=== PATIENT | female | born 1945 | race Caucasian/White ===

== ENCOUNTER 2020-02-12 07:32 | Outpatient (CLI) | payer MEDICARE, SELFPAY ==
--- NOTE | ~2020-02-12 | DEXA_ITS ---
Bone Density Report Name: Mahsa Cannon Age: 74 Sex: Female Ethnicity: White Date of : 1945 Indication: postmenopausal; Referring Provider: PHYSICIAN NOT ON STAFF Study: Bone densitometry was performed. Exam Date: February 12, 2020 Accession number: [id number] Bone Density: Region BMD T-score Z-score Classification AP Spine (L1-L4) 1.216 1.5 3.9 Normal Femoral Neck (Left) 0.956 1.0 3.0 Normal Total Hip (Left) 1.214 2.2 4.0 Normal Total Hip Bilateral Avg 1.209 2.1 4.0 Normal Femoral Neck (Right) 0.997 1.3 3.4 Normal Total Hip (Right) 1.202 2.1 3.9 Normal World Health Organization criteria for BMD impression classify patients as: Normal (T-score at or above -1.0), Osteopenia (T-score between -1.0 and -2.5), or Osteoporosis (T-score at or below -2.5). 10-year Fracture Risk: FRAX not reported because: All T-scores for Spine Total, Hip Total, Femoral Neck at or above -1.0 Previous Exams: Region Exam Age BMD T-score BMD Change BMD Change Date g/cm2 vs Baseline vs Previous AP Spine(L1-L4) 02/12/2020 74 1.216 1.5 -0.093(-7.1%)# -0.093(-7.1%)# 08/01/2008 63 1.309 2.4 Total Hip(Left) 02/12/2020 74 1.214 2.2 -0.100(-7.6%)# -0.100(-7.6%)# 08/01/2008 63 1.314 3.0 Total Hip(Right) 02/12/2020 74 1.202 2.1 -0.080(-6.3%)# -0.080(-6.3%)# 08/01/2008 63 1.282 2.8 *Denotes significance at 95% confidence level, LSC for AP Spine = 0.022 g/cm2, LSC for Total Hip = 0.027 g/cm2 Clinical Information Provided by Patient: Patient maximum height was 65 Onset of menses at age 14 Number of children 2 Impression: The patient has normal bone mass. No significant bone loss was observed. Discussion: LOW RISK OF FRACTURE; BONE DENSITY IS WELL ABOVE THE MINIMUM DESIRABLE LEVEL AND ABOVE AVERAGE FOR AGE AND SEX AT ALL SKELETAL SITES TESTED. This person's bone density is above expected limits for age and sex. This is rarely clinically significant, but should be pursued if there are significant musculoskeletal complaints. The patient should follow a healthful lifestyle (good nutrition with adequate calcium and vitamin D, and appropriate weight-bearing exercise). Follow-Up: Consider repeating this study in 5 years or sooner if there is some new clinical indication. Reported by: [facility] on 02/12/2020 8:05:00 AM. Reviewed, dictated and finalized at location ACharlotte CALLEJAS
== END 2020-02-12 07:33 | disposition home or self-care (01) ==
PROVIDERS: PCP Family Medicine
DX: Z78.0 Asymptomatic menopausal state (principal)
CPT/HCPCS: 77080

== ENCOUNTER 2021-03-11 01:22 | Emergency (ER) | payer MEDICARE, SELFPAY ==
[2021-03-11] VITALS (11 sets, daily range): BP systolic 120–164; BP diastolic 63–86; PULSE 60–91; RESP 14–19; TEMP 36.6; O2SAT 95–100
--- NOTE | ~2021-03-11 | CT_ITS ---
EXAMINATION: CT abdomen pelvis w con DATE: 03/11/2021 02:48 INDICATION: Abdominal pain. TECHNIQUE: Computed tomography (CT) of the abdomen and pelvis was performed with 100 mL Omnipaque 350 intravenous contrast. Automated exposure control and iterative reconstruction technique were employe d. The dose-length product was 824.03 mGy-cm. COMPARISON: None. FINDINGS: The visualized portions of the lung bases demonstrate mild dependent atelectasis. A calcifi ed right lung nodule and calcified right hilar lymph node a consistent with old granulomatous disease . No pleural effusion. The heart size is normal. There are coronary artery calcifications. No pericar dial effusion. The liver is normal. There are changes of cholecystectomy. Calcifications in the splee n are consistent with old granulomatous disease. The pancreas and adrenal glands are normal. There ar e 2 mm and 3 mm stones in right kidney. There is mild right hydronephrosis and hydroureter. There is a 3 mm stone at right ureterovesicular junction. There is a 12 mm cyst in left kidney. There are 3 st ones in left kidney measuring up to 4 mm. The endometrial complex is thickened to 13 mm. There is div erticulosis of the colon without evidence of diverticulitis. There are no dilated loops of bowel. The appendix is normal. There are no pathologically enlarged lymph nodes. There is no free intraperitone al fluid. There is mild thoracolumbar spondylosis. IMPRESSION: 1. 3 mm stone at right ureterovesicular junction with mild right hydronephrosis and hydroureter. 2. Small bilateral nonobstructing kidney stones. 3. Thickened endometrial complex. The differential diagnosis includes endometrial hyperplasia, polyp, and carcinoma. Biopsy is recommended. Reviewed, dictated and finalized at location A. IMPRESSION: 1. 3 mm stone at right ureterovesicular junction with mild right hydronephrosis and hydroureter. 2. Small bilateral nonobstructing kidney stones. 3. Thickened endometrial complex. The differential diagnosis includes endometri al hyperplasia, polyp, and carcinoma. Biopsy is recommended.
--- NOTE | 2021-03-11 01:52 | ECG_ITS ---
Measurements Intervals [place] Rate: 60 P: 29 NV: 169 QRS: 42 QRSD: 91 T: 65 QT: 407 QTc: 407 Interpretive Statements SINUS RHYTHM ATRIAL PREMATURE COMPLEX BORDERLINE ECG Electronically Signed On 03-11-2021 6:57:36 CDT by Elías Tai D.O.
[2021-03-11] MEDS: SODIUM CHLORIDE 0.9% IV 1,000 ML 999 ML IV CONT (02:05)
[2021-03-11] MEDS: ONDANSETRON INJ 4 MG/2 ML VIAL IV PUSH (02:06)
[2021-03-11] MEDS: MORPHINE SULFATE (*CRX) 4 MG/ML INJ IV PUSH (02:06)
[2021-03-11 02:35] LABS: Estimated CRCL calculation 50 ml/min; Estimated Glomerular Filt Rate > 60
[2021-03-11 02:37] LABS: Basophils Absolute Auto 0.1 K/mm3 (0.0-0.1); Basophils Percent Auto 0.9 % (0.2-1.2); Eosinophils Percent Auto 0.2 % (0-4.4); Hematocrit 45.9 % (37.0-47.0); Hemoglobin 14.8 g/dL (12.0-15.0); Immature Granulocyte Absolute 0.03 K/mm3 (0.00-0.031); Immature Granulocyte Percent A 0.3 % (0-0.5); Lymphocytes Absolute Auto 1.58 K/mm3 (0.9-3.2); Lymphocytes Percent Auto 14.6 % (18.3-44.2); Mean Corpuscular HGB Conc 32.2 g/dl (32-36); Mean Corpuscular Volume 99.1 fl (80-100); Monocytes Absolute Auto 0.7 K/mm3 (0.1-0.6); Monocytes Percent Auto 6.1 % (2.6-8.5); Neutrophils Absolute Auto 8.4 K/mm3 (1.3-6.7); Neutrophils Percent Auto 77.9 % (45.5-73.1); Platelet Count Result 185 k/mm3 (150-375); Red Blood Count 4.63 M/mm3 (4.2-5.4); Red Cell Distribution Width 12.9 % (11.5-14.5); White Blood Count 10.8 K/mm3 (4.5-10.0)
[2021-03-11 02:48] LABS: INR 0.9; Prothrombin Time 13.2 Seconds (11.1-14.7)
[2021-03-11 02:49] LABS: Lactic Acid Reflex 1.6 mmol/L (0.7-2.1); Partial Thromboplastin Time 24.1 SECONDS (22.3-36.8); Potassium 4.1 mmol/L (3.4-5.0)
[2021-03-11 03:02] LABS: Troponin I < 0.012 ng/mL (0.000-0.034)
[2021-03-11 03:08] LABS: Alanine Aminotransferase 19 U/L (4-35); Alkaline Phosphatase 70 U/L (38-126); Anion Gap 7 mmol/L (8-16); Aspartate Amino Transferase 30 U/L (14-36); Blood Urea Nitrogen 20 mg/dL (7-17); Calcium 9.1 mg/dL (8.4-10.2); Carbon Dioxide 21 mmol/L (22-30); Chloride 111 mmol/L (98-107); Estimated CRCL calculation 50 ml/min; Estimated Glomerular Filt Rate > 60; Glucose 132 mg/dL (65-105); Sodium 139 mmol/L (137-145)
--- NOTE | 2021-03-11 03:21 | ED.GENADULT ---
HPI - General Adult General Chief complaint: Abdominal Pain Stated complaint: abd pain Time Seen by Provider: 03/11/21 01:27 History of Present Illness HPI narrative: Patient is a 75-year-old female who presents the emergency department with chief complaint of abdominal pain. Patient reports the pain began around 9 PM states is generalized more on the right side of her abdomen. The patient reports that she has had a bowel movement today but it was somewhat smaller than normal. Patient denies nausea vomiting. The patient states that she is not had any recent surgeries to her abdomen the patient denies fever or chills reports that she had an or abnormal meal tonight denies prior history of pancreatitis. Related Data Allergies Allergy/AdvReac Type Severity Reaction Status Date / Time Penicillins Allergy Unknown Hives Verified 03/11/21 01:41 Review of Systems Review of Systems: Narrative: A 10 system review of systems was completed on the patient and is negative except for what is stated in the HPI. Nursing and ancillary documentation was reviewed. [facility] Social History Social History Smoking status: Never smoker Second hand tobacco smoke exposure: No Alcohol intake: never Gender identity (if verbalized by the patient): Female Exam Narrative: Exam Narrative: GENERAL: Well-appearing, well-nourished, and in no acute distress. HEAD: Normocephalic, atraumatic. EYES: PERRLA and EOMI. ENT: Nares clear, no rhinorrhea or epistaxis. Mucous membranes moist. NECK: Supple. CHEST: Clear to auscultation. No respiratory distress. HEART: Regular rate and rhythm. No murmur heard. Normal peripheral pulses. ABDOMEN: Soft, diffuse mild tenderness, nondistended, normal active bowel sounds. EXTREMITIES: Normal range of motion. No edema. SKIN: Warm, dry, no rash. NEURO: No focal deficits. Alert and oriented x3. PSYCH: Normal mood and affect. Course Course Emergency Course: CT scan shows evidence of a 5 mm stone at the right UVJ Vital Signs Vital signs: Vital Signs Temperature 36.6 C 03/11/21 01:38 Pulse Rate 65 03/11/21 01:38 Respiratory Rate 19 03/11/21 01:38 Blood Pressure 164/75 H 03/11/21 01:38 Pulse Oximetry 96 03/11/21 01:38 Temperature 36.6 C 03/11/21 01:38 Pulse Rate 87 03/11/21 03:45 Respiratory Rate 16 03/11/21 03:45 Blood Pressure 141/66 H 03/11/21 03:01 Pulse Oximetry 96 03/11/21 03:45 Medical Decision Making Vital Signs Vital Signs: Vital Signs Temperature 36.6 C 03/11/21 01:38 Pulse Rate 65 03/11/21 01:38 Respiratory Rate 19 03/11/21 01:38 Blood Pressure 164/75 H 03/11/21 01:38 Pulse Oximetry 96 03/11/21 01:38 Temperature 36.6 C 03/11/21 01:38 Pulse Rate 87 03/11/21 03:45 Respiratory Rate 16 03/11/21 03:45 Blood Pressure 141/66 H 03/11/21 03:01 Pulse Oximetry 96 03/11/21 03:45 Lab Data Result diagrams: 03/11/21 02:32 03/11/21 02:33 Labs: Lab Results 03/11/21 03/11/21 03/11/21 Range/Units 02:32 02:32 02:32 WBC 10.8 H (4.5-10.0) K/mm3 RBC 4.63 (4.2-5.4) M/mm3 Hgb 14.8 (12.0-15.0) g/dL Hct 45.9 (37.0-47.0) % MCV 99.1 (80-100) fl MCH 32.0 (26-34) pg MCHC 32.2 (32-36) g/dl RDW 12.9 (11.5-14.5) % Plt Count 185 (150-375) k/mm3 MPV 10.0 (7.4-10.4) fl Immature Gran % (Auto) 0.3 (0-0.5) % Neut % (Auto) 77.9 H (45.5-73.1) % Lymph % (Auto) 14.6 L (18.3-44.2) % Pratt % (Auto) 6.1 (2.6-8.5) % Eos % (Auto) 0.2 (0-4.4) % Baso % (Auto) 0.9 (0.2-1.2) % Lymph # (Auto) 1.58 (0.9-3.2) K/mm3 Pratt # (Auto) 0.7 H (0.1-0.6) K/mm3 Eos # (Auto) 0.0 (0-0.3) K/mm3 Baso # (Auto) 0.1 (0.0-0.1) K/mm3 Abs Immat Gran (auto) 0.03 (0.00-0.031) K/mm3 Absolute Neuts (auto) 8.4 H (1.3-6.7) K/mm3 Absolute Nucleated RBC 0.0 (0.0-0.012) K/mm3 Nucleated RB
== END 2021-03-11 04:38 | disposition home or self-care (01) ==
PROVIDERS: Emergency Provider Emergency Medicine; PCP Family Medicine
DX: N13.2 Hydronephrosis with renal and ureteral calculous obstruction (principal); R93.89 Abnormal findings on diagnostic imaging of other specified body structures
CPT/HCPCS: 74177; 80053; 83605; 84484; 85025; 85610; 85730; 93005; 96361; 96374; 96375; 99284; J2270; J2405; J7030; Q9967

== ENCOUNTER → 2021-03-17 13:39 | Outpatient (CLI) | payer MEDICARE, SELFPAY ==
--- NOTE | ~2021-03-17 | XR_ITS ---
EXAMINATION: XR abdomen/kub 1V DATE: 03/17/2021 14:57 INDICATION: Right ureteral stone. TECHNIQUE: A supine view of the abdomen on 2 radiographs was obtained. COMPARISON: CT abdomen and pelvis 03/11/2021 FINDINGS: There are no dilated loops of bowel. There are phleboliths in the pelvis. Again seen is a 3 mm stone at right ureterovesicular junction. There are stones in the kidneys measuring up to 4 mm on the left. IMPRESSION: 1. 3 mm stone at right ureterovesicular junction. 2. Small bilateral kidney stones. Reviewed, dictated and finalized at location A.
== END ==
PROVIDERS: PCP Urology; Visit Provider Urology
DX: N20.1 Calculus of ureter (principal); N20.0 Calculus of kidney
CPT/HCPCS: 74018

== ENCOUNTER 2021-03-20 08:19 | Outpatient (CLI) | payer MEDICARE, SELFPAY ==
--- NOTE | ~2021-03-20 | US_ITS ---
EXAMINATION: US pelvic complete w TV DATE: 03/20/2021 11:21 INDICATION: Thickened endometrial complex on CT TECHNIQUE: Multiple transabdominal and endovaginal sonographic images of the pelvis were obtained. COMPARISON: CT, 03/11/2021 FINDINGS: The uterus measures 5.3 x 3.3 x 3.2 cm. The endometrial complex measures up to 13 mm again demonstrates areas of fluid or cystic change. The ovaries are not visualized however no adnexal abnor mality is seen. There is no free fluid in the pelvis. IMPRESSION: 1. Endometrial thickening which may be due to hyperplasia, polyp, or malignancy. Endometrial sampling is recommended. Reviewed, dictated and finalized at location A. IMPRESSION: 1. Endometrial thickening which may be due to hyperplasia, polyp, or malignancy . Endometrial sampling is recommended.
--- NOTE | ~2021-03-20 | MM_ITS ---
EXAMINATION: MM screening brooke BI w grazyna HISTORY: Screening TECHNIQUE: Craniocaudal and mediolateral oblique 3-D tomosynthesis images were obtained and synthetic 2-D images were generated. CAD analysis was submitted and interpreted. COMPARISON: Comparison to multiple prior studies sequentially, with oldest reviewed study dated 11/2012. BREAST PARENCHYMAL COMPOSITION: There are scattered areas of fibroglandular density. FINDINGS: There is a chronic mass anterior to the lower margin of the pectoralis muscle with dystroph ic calcifications, likely fibrosis from previous breast implant removal. There is developing asymmetr y asymmetry in the mid outer aspect of the left breast. IMPRESSION: 1. Developing left breast asymmetry, mid outer aspect of the breast posteriorly. 2. Additional mammographic views and possible breast ultrasound are recommended. BI-RADS Category 0: Incomplete: Needs additional imaging evaluation. Reviewed, dictated and finalized at location A. IMPRESSION: 1. Developing left breast asymmetry, mid outer aspect of the breast posteriorly . 2. Additional mammographic views and possible breast ultrasound are recommended . BI-RADS Category 0: Incomplete: Needs additional imaging evaluation.
== END 2021-03-20 08:20 | disposition home or self-care (01) ==
LOC: ANHIMG 08:25
PROVIDERS: Visit Provider Obstetrics & Gynecology
DX: Z12.31 Encounter for screening mammogram for malignant neoplasm of breast (principal); R93.89 Abnormal findings on diagnostic imaging of other specified body structures; R92.8 Other abnormal and inconclusive findings on diagnostic imaging of breast
CPT/HCPCS: 76830; 76856; 77063; 77067

== ENCOUNTER → 2021-03-24 02:35 | Outpatient (CLI) | payer MEDICARE, SELFPAY ==
[2021-03-24 19:19] LABS: SARS-CoV-2 RNA PCR Negative
== END ==
PROVIDERS: Visit Provider Urology
DX: Z01.812 Encounter for preprocedural laboratory examination (principal); Z20.822 Contact with and (suspected) exposure to COVID-19
CPT/HCPCS: C9803; U0003; U0005

== ENCOUNTER 2021-03-27 00:25 | Day surgery (SDC) | payer MEDICARE, SELFPAY ==
[2021-03-19 14:56] VITALS: BMI 29.9
[2021-03-27] VITALS (8 sets, daily range): BP systolic 93–149; BP diastolic 47–78; PULSE 66–79; RESP 8–16; TEMP 36.3–36.7; O2SAT 96–100
--- NOTE | ~2021-03-27 | XR_ITS ---
EXAMINATION: XR fluoroscopy no charge DATE: 03/27/2021 10:13 INDICATION: Right ureteral stone. TECHNIQUE: 3 intraoperative fluoroscopic views of the abdomen and pelvis were obtained. I was not pre sent. Fluoroscopy exposure time was 12 seconds. COMPARISON: CT abdomen and pelvis 03/11/2021 FINDINGS: There are no dilated loops of bowel. There is no visible urolithiasis. IMPRESSION: 1. No visible urolithiasis. Reviewed, dictated and finalized at location B. IMPRESSION: 1. No visible urolithiasis.
--- NOTE | 2021-03-27 07:26 | WPDHPUPDATE1 ---
History and Physical Update Update Date/Time: 03/27/21 07:26 History and Physical has been reviewed, including an updated exam of the patient. There are NO changes in the patient's condition. Risks, benefits, and alternatives have been discussed and questions answered. Patient agrees to proceed with procedure.
[2021-03-27] MEDS: LACTATED RINGERS 1,000 ML 30 ML IV CONT (08:17)
--- NOTE | 2021-03-27 09:04 | WPDANESEPPF ---
Anes - Initial Pre Proc Eval Procedure: Operation Date: 03/27/21 09:30 Proposed Procedures p Cystoscopy, Right Ureteroscopy, Right Stone Extraction, Possible Stent Placement - Eliel Riley MD Date/Time: 03/27/21 09:04 Surgeon: Eliel Riley MD Pre Op Diagnosis: right ureteral stone Patient Data Age: 75 Gender: F Height: 5 ft 5 in Weight: 87.8 kg Last Vital Signs Temp 97.3 F L 03/27/21 07:40 Pulse 68 03/27/21 07:40 Resp 16 03/27/21 07:40 BP 131/78 03/27/21 07:40 Pulse Ox 98 03/27/21 07:40 Allergies Allergy/AdvReac Type Severity Reaction Status Date / Time Penicillins Allergy Mild Rash Verified 03/27/21 08:38 Home Medications Medication Instructions Recorded Confirmed Type brimonidine-timolol [Combigan] 1 drp OPHTHALMIC (EYE) BID 03/19/21 03/27/21 History clonidine HCl 0.1 mg PO TID 03/19/21 03/19/21 History dorzolamide 1 drp OPHTHALMIC (EYE) BID 03/19/21 03/27/21 History famotidine 40 mg PO DAILY 03/19/21 03/19/21 History levothyroxine 100 mcg PO DAILY 03/19/21 03/27/21 History metoprolol succinate 25 mg PO QNOON 03/19/21 03/27/21 History omeprazole 40 mg PO DAILY 03/19/21 03/19/21 History pravastatin 40 mg PO HS 03/19/21 03/19/21 History Patient hx anesthesia problems: none Family hx anesthesia problems: none PMFSH Past Medical History Medical History GERD (gastroesophageal reflux disease) Hypertension Thyroid disorder Surgical History Surgical History H/O breast surgery S/P cholecystectomy S/P ERCP Family History Family History Father Thyroid cancer Hypertension Cerebrovascular accident Other Hypertension Thyroid disorder Sibling Hypertension Heart disease Son Hypertension Social History Social History Smoking status: Never smoker Second hand tobacco smoke exposure: No Alcohol intake: never Living arrangements: with family Gender identity (if verbalized by the patient): Female Spiritual care concerns: No Anes - Eval Final PreProcedure Day of Procedure 03/27/21 09:04 Patient weight: overweight Heart: regular rate and rhythm Lungs: clear to auscultation Airway: Mallampati scale class II Neurological: alert and oriented Last oral intake: >/= 8 hours ASA classification: III Emergent: no Anesthetic plan: proceed Anesthesia type and monitoring: general LMA and standard monitoring Informed Consent: The patient's anesthetic plan and its attendant risks and benefits were discussed with the patient/family/POA. Questions were solicited and answers provided to the satisfaction of the patient/family/POA.
[2021-03-27] MEDS: ceFAZolin 2 GM/D5W 50 ML 2 GM/50 ML BAG IVPB (09:37)
--- NOTE | 2021-03-27 10:11 | P.OP_ITS ---
Procedure Note - Detailed Date of procedure: 03/27/21 Pre-op diagnosis: right ureteral stone Post-op diagnosis: same Procedure performed: Cystoscopy, right ureteroscopy with stone extraction Description of procedure: The patient was brought to the operative suite where she is prepped and draped in a routine sterile fashion while in the dorsal lithotomy position after the uneventful induction of a general LMA anesthetic. A 19F rigid cystoscope was placed in the bladder. The patient had no evidence of urethral stricture or bladder neck contracture. The bladder mucosa was endoscopically normal without hyperemia or neoplasm. There was a single, orthotopic ureteral orifice bilaterally. A 0.035 glidewire was advanced into the right renal pelvis under fluoroscopy. The distal ureter was dilated with an 8F/10F ureteral dilator. Ureteroscopy was undertaken with a short, tapered, semi-rigid ureteroscope and the stone was extracted with ease using a 1.9F Escape disposable stone basket. Due to the ease of this manipulation I opted n ot to place a ureteral stent. The patient's bladder was emptied and was taken to the recovery room having tolerated this procedure well. Anesthesia: GLMA Surgeon: Eliel Riley MD Estimated blood loss (mL): 0 Drains: No Packing: No Pathology: yes Complications: No immediate complications Condition: stable Disposition: PACU
--- NOTE | 2021-03-28 22:02 | WPDANESEPP ---
Anes - Eval Pre Procedure Procedure: Operation Date: 03/27/21 09:30 Proposed Procedures p Cystoscopy, Right Ureteroscopy, Right Stent Placement - Brooks King MD Date/Time: 03/28/21 22:02 Preop Diagnosis: right ureteral stone Pre Op Diagnosis: right ureteral stone Patient Data Age: 75 Gender: F Height: 1.65 m Weight: 87.8 kg Last Vital Signs Temp 36.7 C 03/27/21 10:10 Pulse 68 03/27/21 11:35 Resp 12 03/27/21 10:55 BP 132/76 03/27/21 11:35 Pulse Ox 97 03/27/21 10:55 Allergies Allergy/AdvReac Type Severity Reaction Status Date / Time Penicillins Allergy Mild Rash Verified 03/27/21 08:38 Home Medications Medication Instructions Recorded Confirmed Type Combigan 1 drp OPHTHALMIC (EYE) BID 03/19/21 03/27/21 History clonidine HCl 0.1 mg PO TID 03/19/21 03/19/21 History dorzolamide 1 drp OPHTHALMIC (EYE) BID 03/19/21 03/27/21 History famotidine 40 mg PO DAILY 03/19/21 03/19/21 History levothyroxine 100 mcg PO DAILY 03/19/21 03/27/21 History metoprolol succinate 25 mg PO QNOON 03/19/21 03/27/21 History omeprazole 40 mg PO DAILY 03/19/21 03/19/21 History pravastatin 40 mg PO HS 03/19/21 03/19/21 History hydrocodone-acetaminophen 1 - 2 tablet PO Q6H PRN #20 tablet 03/27/21 Rx sulfamethoxazole-trimethoprim 1 tablet PO Q12H #6 tablet 03/27/21 Rx Patient hx anesthesia problems: none Family hx anesthesia problems: none PMFSH Past Medical History Medical History GERD (gastroesophageal reflux disease) Hypertension Thyroid disorder Surgical History Surgical History H/O breast surgery S/P cholecystectomy S/P ERCP Family History Family History Father Thyroid cancer Hypertension Cerebrovascular accident Other Hypertension Thyroid disorder Sibling Hypertension Heart disease Son Hypertension Social History Social History Smoking status: Never smoker Second hand tobacco smoke exposure: No Alcohol intake: never Gender identity (if verbalized by the patient): Female Spiritual care concerns: No Exam Day of Procedure 03/28/21 22:02
== END 2021-03-27 11:50 | disposition home or self-care (01) ==
PROVIDERS: PCP Family Medicine; Visit Provider Urology
PROC: (CPT 52352; principal; 2021-03-27 09:30)
DX: N20.1 Calculus of ureter (principal); I10 Essential (primary) hypertension; K21.9 Gastro-esophageal reflux disease without esophagitis; E07.9 Disorder of thyroid, unspecified
CPT/HCPCS: 52352; 82365; 88300; A9270; C1769; C9803; J0690; J1100; J2370; J2405; J2704; J3010; J7120; U0003; U0005

== ENCOUNTER 2021-03-28 18:31 | Inpatient (IN) | payer MEDICARE, SELFPAY ==
[2021-03-28] VITALS (9 sets, daily range): BP systolic 93–108; BP diastolic 44–52; PULSE 70–95; RESP 16–24; TEMP 36.9–39.2; O2SAT 95–100
--- NOTE | ~2021-03-28 | CT_ITS ---
EXAMINATION: CT abdomen pelvis wo con EXAM DATE: 03/28/2021 19:52 INDICATION: Fever, hx of stones. TECHNIQUE: Spiral CT of the abdomen and pelvis was performed without contrast. Axial, coronal and sag ittal images were reviewed. The dose-length product (DLP) for this examination was 308.08 mGy-cm. T he exposure was tailored according to patient size (auto mA exposure control), and iterative reconstr uction (ASIR) was used as additional dose reduction technique. Comparison is made to prior examinatio n from 03/11/2021. FINDINGS: Previously seen right UVJ stone has passed. One of the 2 previously seen right calyceal sto fred is migrated to the proximal aspect of the right ureter. This measures about 2 mm in size and may be causing the minimal hydronephrosis (was mild to moderate hydronephrosis on prior study). There are 2 left inferior calyceal stones measuring up to 4 mm. Previously described endometrial thickening is less well visualized on this noncontrast study, but was evaluated on a pelvic sonogram dated . The bladder is unremarkable. The liver, spleen, adrenal glands and pancreas are unremarkable. T here are cholecystectomy clips. There is no retroperitoneal or pelvic lymphadenopathy. There is mi ld to moderate scattered arteriosclerotic disease. The appendix is normal. There is mild to moderate sigmoid colonic diverticulosis. There is no adjace nt inflammatory change to suggest diverticulitis. The stomach and small bowel are unremarkable. The re is expected amount of colonic stool. No free intraperitoneal gas. The heart is normal in size. There are no pericardial or pleural effusions. The lung bases are unremarkable. There are no oste oblastic or osteolytic lesions identified. IMPRESSION: 1. Right proximal ureteral 2 mm stone, minimal hydronephrosis. 2. Previously seen right UVJ stone has passed. 3. Bilateral nephrolithiasis. 4. Sigmoid diverticulosis. Reviewed, dictated and finalized at location A.
--- NOTE | ~2021-03-28 | XR_ITS ---
EXAMINATION: XR retrograde pyelo w/stent RT EXAM DATE: 03/28/2021 23:22 INDICATION: Right-sided obstructive nephropathy. TECHNIQUE: Fluoroscopy used during XR retrograde pyelo w/stent RT performed by Dr. Brooks King MD, urologist. The radiologist Manjeet Shea M.D. dictating this report of the image(s) available was not present for the procedure. Total fluoroscopic time of 30 seconds. The DAP for this procedure wa s 470 radcm2. A total of 8 images sent to PACS from the exam. Correlation is made to CT abdomen lenore ier same date. FINDINGS: Right ureter was cannulated, injected. There is mild right-sided hydronephrosis. A double- J ureteral stent was placed. Correlate with procedure note. IMPRESSION: Mild right hydronephrosis. Stent in position. Reviewed, dictated and finalized at location G.
--- NOTE | ~2021-03-28 | XR_ITS ---
EXAMINATION: XR chest 2V EXAM DATE: 03/28/2021 19:57 INDICATION: Fever. Hypertension. TECHNIQUE: Frontal and lateral projections of the chest obtained and reviewed. Comparison is made to prior examination from 12/18/2011. FINDINGS: The lungs are clear. There are no pleural effusions. The cardiomediastinal silhouette is within normal limits. There is no pneumothorax suspected. The bones and soft tissues are unremarkab le. There are cholecystectomy clips. IMPRESSION: No acute cardiopulmonary findings. Reviewed, dictated and finalized at location A.
[2021-03-28 18:47] LABS: Hematocrit 44.6 % (37.0-47.0); Mean Corpuscular HGB Conc 33.6 g/dl (32-36); Mean Corpuscular Hemoglobin 32.1 pg (26-34); Mean Corpuscular Volume 95.3 fl (80-100); Mean Platelet Volume 10.1 fl (7.4-10.4); Platelet Count Result 211 k/mm3 (150-375); Red Blood Count 4.68 M/mm3 (4.2-5.4); Red Cell Distribution Width 13.2 % (11.5-14.5); White Blood Count 12.4 K/mm3 (4.5-10.0)
[2021-03-28 18:57] LABS: Anion Gap 5 mmol/L (8-16); Blood Urea Nitrogen 16 mg/dL (7-17); Calcium 9.5 mg/dL (8.4-10.2); Carbon Dioxide 25 mmol/L (22-30); Chloride 107 mmol/L (98-107); Estimated CRCL calculation 27 ml/min; Estimated Glomerular Filt Rate 27; Glucose 134 mg/dL (65-105); Sodium 137 mmol/L (137-145)
[2021-03-28 18:59] LABS: Lactic Acid Reflex 1.9 mmol/L (0.7-2.1)
[2021-03-28 19:10] LABS: Band Neutrophils Percent 4 % (0-6); Lymphocytes Absolute Manual 0.49 K/mm3 (1.1-4.5); Monocytes Absolute Manual 0.49 K/mm3 (0.1-0.90); Monocytes Percent Manual 4 % (3-9); Neutrophils Percent Manual 88 % (46-73); Platelet Estimate Adequate (Adequate); Total Cells Counted 100
--- NOTE | 2021-03-28 19:36 | PC.NURSE ---
Pt presents to ED with complaints of fever. States she was seen yesterday and had a kidney stone removed. States today she has been febrile and weak with chills. Denies chest pain, sob, nausea and emesis. Pt denies pain and discomfort at this time and states she feels a little dizzy. Vitals are stable and pt in no obvious distress at this time. Breathing even and unlabored with O2 saturation of 95% on room air. Pt alert and oriented x4. Call button and personal items within reach. Pt advised to press call button for assistance.
[2021-03-28] MEDS: SODIUM CHLORIDE 0.9% IV 1,000 ML 999 ML IV CONT (19:40)
[2021-03-28 21:13] LABS: Add Urine Microscopic? YES; Appearance Urine Cloudy (Clear); Bacteria Urine Trace /hpf; Bilirubin Urine Negative (Negative); Blood Urine 3+ (Negative); Color Urine Red (Yellow); Glucose Urine UA Negative (Negative); Ketones Urine Negative (Negative); Leukocyte Esterase Ur Negative LEU/UL (Negative); Mucus Urine Heavy /lpf; Nitrate Urine Negative (Negative); Protein Urine 2+ mg/dL (Negative); RBC Urine >75 /hpf (0-2); Specific Grav Ur 1.026 (1.001-1.035); Squamous Epithelial Cell Urine Many /hpf (Few)
--- NOTE | 2021-03-28 21:19 | ED.GENADULT ---
HPI - General Adult General Chief complaint: Fever Stated complaint: fever, dizzy Time Seen by Provider: 03/28/21 19:13 History of Present Illness HPI narrative: Patient 75-year-old female who presents the emergency department with chief complaint of fever chills and body aches. Patient reports that she had a kidney stone removed by her urologist yesterday she has been taking oral antibiotics. The patient states that today she started feeling sweaty started having some body aches and chills. The patient took her temperature and it was 103 at home. The patient states that she took some Tylenol and had no improvement she called her urologist office and came to the emergency department. Related Data Home Medications Medication Instructions Recorded Confirmed Combigan 1 drp OPHTHALMIC (EYE) BID 03/19/21 03/27/21 clonidine HCl 0.1 mg PO TID 03/19/21 03/19/21 dorzolamide 1 drp OPHTHALMIC (EYE) BID 03/19/21 03/27/21 famotidine 40 mg PO DAILY 03/19/21 03/19/21 levothyroxine 100 mcg PO DAILY 03/19/21 03/27/21 metoprolol succinate 25 mg PO QNOON 03/19/21 03/27/21 omeprazole 40 mg PO DAILY 03/19/21 03/19/21 pravastatin 40 mg PO HS 03/19/21 03/19/21 Allergies Allergy/AdvReac Type Severity Reaction Status Date / Time Penicillins Allergy Mild Rash Verified 03/27/21 08:38 Review of Systems Review of Systems: Narrative: A 10 system review of systems was completed on the patient and is negative except for what is stated in the HPI. Nursing and ancillary documentation was reviewed. [facility] Past Medical History Medical History GERD (gastroesophageal reflux disease) Hypertension Thyroid disorder Surgical History Surgical History H/O breast surgery S/P cholecystectomy S/P ERCP Family History Family History Father Thyroid cancer Hypertension Cerebrovascular accident Other Hypertension Thyroid disorder Sibling Hypertension Heart disease Son Hypertension Social History Social History Smoking status: Never smoker Second hand tobacco smoke exposure: No Alcohol intake: never Gender identity (if verbalized by the patient): Female Spiritual care concerns: No Exam Narrative: Exam Narrative: GENERAL: Well-appearing, well-nourished, and in no acute distress. HEAD: Normocephalic, atraumatic. EYES: PERRLA and EOMI. ENT: Nares clear, no rhinorrhea or epistaxis. Mucous membranes moist. NECK: Supple. CHEST: Clear to auscultation. No respiratory distress. HEART: Regular rate and rhythm. No murmur heard. Normal peripheral pulses. ABDOMEN: Soft, nontender, nondistended, normal active bowel sounds. EXTREMITIES: Normal range of motion. No edema. SKIN: Warm, dry, no rash. NEURO: No focal deficits. Alert and oriented x3. PSYCH: Normal mood and affect. Course Course Emergency Course: CT scan shows evidence of a 2 mm proximal stone with hydronephrosis. Patient received IV hydration and IV acetaminophen patient was given a gram of Rocephin in the emergency department. Urinalysis does show evidence of UTI. Case was discussed with the on-call urologist. The patient will be taken to the operating room for emergent stent placement Vital Signs Vital signs: Vital Signs Temperature 39.2 C H 03/28/21 18:33 Pulse Rate 95 03/28/21 18:33 Respiratory Rate 20 03/28/21 18:33 Blood Pressure 96/52 L 03/28/21 18:33 Pulse Oximetry 99 03/28/21 18:33 Temperature 37.5 C 03/28/21 20:34 Pulse Rate 81 03/28/21 19:27 Respiratory Rate 24 H 03/28/21 19:27 Blood Pressure 96/47 L 03/28/21 19:27 Pulse Oximetry 99 03/28/21 19:27 Medical Decision Making Vital Signs Vital Signs: Vital Signs Temperature 39.2 C H 03/28/21 18:33 Pulse Rate 95
--- NOTE | 2021-03-28 22:39 | WPDURCON ---
Assessment and Plan Assessment and plan (1) Acute UTI: Code(s): N39.0 - Urinary tract infection, site not specified Status: Acute (2) Right ureteral stone: Code(s): N20.1 - Calculus of ureter Status: Acute Assessment and Plan: Is a very pleasant 75-year-old lady with a right proximal ureteral stone and urinary tract infection causing sepsis. Patient is postop day 1 from ureteroscopy and removal of a right distal stone. -risks benefits alternatives were discussed the patient. The patient agrees to proceed with cystoscopy and right ureteral stenting today. She understands that she will need definitive stone management at a later day.. Risks of procedure include limited to infection, bleeding, pain, inability to place stent, need for additional operations as well as complications from anesthesia. She understands and agrees to proceed with cystoscopy, right retrograde pyelogram, right ureteral stent insertion. (3) Sepsis: Code(s): A41.9 - Sepsis, unspecified organism Status: Acute Urology Consult Note HPI Date Seen: 03/28/21 Primary Care Provider: Brock AcostaMD Consult Narrative Narrative: Mahsa Cannon is a 75 year old female is a very pleasant lady who underwent ureteroscopy and stone extraction yesterday for distal stone. The patient did well postoperatively and was discharged home. Patient began feeling ill today at home and had a temperature over 103? F. The patient then presented to the emergency department where she was found again to be febrile and a CT scan showed a 2mm stone present in the proximal ureter. At home the patient had fever, chills. She denies chest pains or shortness of breath. Review of Systems Review of Systems: All systems reviewed & are unremarkable except as noted in HPI and below PMFSH Past Medical History Medical History GERD (gastroesophageal reflux disease) Hypertension Thyroid disorder Surgical History Surgical History H/O breast surgery S/P cholecystectomy S/P ERCP Family History Family History Father Thyroid cancer Hypertension Cerebrovascular accident Other Hypertension Thyroid disorder Sibling Hypertension Heart disease Son Hypertension Social History Social History Smoking status: Never smoker Second hand tobacco smoke exposure: No Alcohol intake: never Gender identity (if verbalized by the patient): Female Spiritual care concerns: No Meds Home Medications and Allergies Home Medications Medication Instructions Recorded Confirmed Type Combigan 1 drp OPHTHALMIC (EYE) BID 03/19/21 03/27/21 History clonidine HCl 0.1 mg PO TID 03/19/21 03/19/21 History dorzolamide 1 drp OPHTHALMIC (EYE) BID 03/19/21 03/27/21 History famotidine 40 mg PO DAILY 03/19/21 03/19/21 History levothyroxine 100 mcg PO DAILY 03/19/21 03/27/21 History metoprolol succinate 25 mg PO QNOON 03/19/21 03/27/21 History omeprazole 40 mg PO DAILY 03/19/21 03/19/21 History pravastatin 40 mg PO HS 03/19/21 03/19/21 History hydrocodone-acetaminophen 1 - 2 tablet PO Q6H PRN #20 tablet 03/27/21 Rx sulfamethoxazole-trimethoprim 1 tablet PO Q12H #6 tablet 03/27/21 Rx Allergies Allergy/AdvReac Type Severity Reaction Status Date / Time Penicillins Allergy Mild Rash Verified 03/27/21 08:38 Vital Signs Vital Signs - 24 hr 03/28/21 18:33 03/28/21 19:27 03/28/21 20:33 Temperature 39.2 C H 38.1 C H 37.5 C Pulse Rate 95 81 Respiratory Rate 20 24 H Blood Pressure 96/52 L 96/47 L Pulse Oximetry 99 99 03/28/21 20:34 03/28/21 22:14 Temperature 37.5 C 37.2 C Pulse Rate 70 Respiratory Rate 17 Blood Pressure 94/44 L Pulse Oximetry 98 Exam Narrative: Exam Narrative: The devante
--- NOTE | 2021-03-28 22:39 | PC.NURSE ---
Pt undressed and placed in gown preparing for OR. Vitals are stable and pt in no obvious distress at this time. Consent forms signed.
[2021-03-28] MEDS: LACTATED RINGERS 1,000 ML 30 ML IV CONT (23:00)
--- NOTE | 2021-03-28 23:00 | WPDHPUPDATE1 ---
History and Physical Update Update Date/Time: 03/28/21 23:00 History and Physical has been reviewed, including an updated exam of the patient. There are NO changes in the patient's condition. Risks, benefits, and alternatives have been discussed and questions answered. Patient agrees to proceed with procedure.
--- NOTE | 2021-03-28 23:04 | WPDANESEFPP ---
Anes - Eval Final PreProcedure Day of Procedure 03/28/21 23:04 Patient weight: obese Heart: regular rate and rhythm Lungs: clear to auscultation Airway: Mallampati scale class II Neurological: alert and oriented Last oral intake: >/= 8 hours ASA classification: III Emergent: yes Anesthetic plan: proceed Anesthesia type and monitoring: general GIVS and standard monitoring Informed Consent: The patient's anesthetic plan and its attendant risks and benefits were discussed with the patient/family/POA. Questions were solicited and answers provided to the satisfaction of the patient/family/POA.
--- NOTE | 2021-03-28 23:13 | PC.NURSE ---
Pt OR and transported by x2 OR nurses.
[2021-03-28] MEDS: LIDOCAINE HCL 2% GEL UROJET 10 ML PKG MUCOUS MEM (23:14)
--- NOTE | 2021-03-28 23:21 | PM.PROC ---
Procedure Note - Detailed Date of procedure: 03/28/21 Pre-op diagnosis: fever, dizzy Procedure performed: cystoscopy, right RPG, right ureteral stent insertion Description of procedure: Informed consent obtained. Pt taken to the OR. Induced with anesthesia. Prepped and draped. A 22 F cystoscope was inserted. Pt with bilateral orthotopic ureteral orifices. We cannulated the right ureteral orifice and retrograde pyelogram showed moderate right hydronephrosis. Over a wire a 6F variable length stent inserted with curl in renal pelvis and a curl in the bladder. Bladder emptied with 16F Azevedo. Pt then taken to PACU in stable condition. Anesthesia: GLMA Surgeon: Brooks King MD Estimated blood loss (mL): 1 Drains: No Packing: No Pathology: none sent Complications: No immediate complications Condition: stable Disposition: PACU
[2021-03-29] VITALS (14 sets, daily range): BP systolic 91–177; BP diastolic 46–92; PULSE 60–81; RESP 14–20; TEMP 35.9–36.6; O2SAT 94–100; BMI 32.3
--- NOTE | 2021-03-29 01:18 | ADMGEN ---
This patient, Mahsa Cannon, was admitted to 2 Medical Room 253-01. Patient/family oriented to hospital policies and general routines including ID bracelet, bed and alarms, visiting hours, pain management, procedures, bathroom and other care routines, personal items, smoking policy, room service/diet, and visiting hours. Information on how to activate the Rapid Response Team has been discussed. Patient/Family are encouraged to report perceived risks to care and to ask questions if they do not understand what they are told or what they should do.
--- NOTE | 2021-03-29 01:38 | PM.IMHP ---
H&P: HPI History of Present Illness Date/Time: 03/29/21 01:38 Chief Complaint: Fever Narrative: This is a 75-year-old female past medical history significant for hypertension, hypothyroid disease, dyslipidemia, GERD, glaucoma. Patient is status post right ureteroscopy for retrieval of a kidney stone after these patient went home however the day after patient had a fever of 103 abdominal pain nausea but no vomiting no diarrhea patient presented to the emergency room and she was found to have a stone in the right ureter and right hydronephrosis. Patient was taken to the OR for retrograde pyelogram cystoscopy with ureteroscopy stone retrieval and stent placement. The patient tolerated the procedure well. She has been placed on observation. Review of Systems Review of Systems: Narrative: Patient had a fever of 103 status post ureteroscopy with kidney stone extraction Constitutional: Constitutional: Reports chills and Reports fever(s) Eyes: Eyes: Denies change in vision ENT: Denies nasal congestion and Denies nasal discharge Cardiovascular: Cardiovascular: Denies lightheadedness Respiratory: Respiratory: Denies cough and Denies dyspnea Gastrointestinal: Gastrointestinal: Reports abdominal pain, Denies diarrhea, Reports nausea and Denies vomiting Musculoskeletal: Musculoskeletal: Denies arthralgias, Denies joint swelling and Denies muscle weakness Integumentary/Breasts: Skin/Breast: Denies rash Neurologic: Denies focal weakness Endocrine: Endocrine: Denies no additional endocrine complaints, Denies heat intolerance and Denies palpitations Hematologic/Lymphatic: Hematologic/Lymphatic: Denies no additional hematologic/lymphatic complaints Allergic/Immunologic: Allergic/Immunologic: Denies no additional allergic/immunologic complaints [facility] Past Medical History Medical History GERD (gastroesophageal reflux disease) Hypertension Thyroid disorder Surgical History Surgical History H/O breast surgery S/P cholecystectomy S/P ERCP Family History Family History Father Thyroid cancer Hypertension Cerebrovascular accident Other Hypertension Thyroid disorder Sibling Hypertension Heart disease Son Hypertension Social History Social History Smoking status: Never smoker Second hand tobacco smoke exposure: No Alcohol intake: never Substance use: never Substance use type: does not use Gender identity (if verbalized by the patient): Female Sexual Orientation (if Verbalized by the Patient): Straight or Heterosexual Spiritual care concerns: No Meds Home Medications and Allergies Home Medications Medication Instructions Recorded Confirmed Type Combigan 1 drp OPHTHALMIC (EYE) BID 03/19/21 03/29/21 History clonidine HCl 0.1 mg PO TID 03/19/21 03/29/21 History dorzolamide 1 drp OPHTHALMIC (EYE) BID 03/19/21 03/29/21 History famotidine 40 mg PO DAILY 03/19/21 03/29/21 History levothyroxine 100 mcg PO DAILY 03/19/21 03/29/21 History metoprolol succinate 25 mg PO QNOON 03/19/21 03/29/21 History omeprazole 40 mg PO DAILY 03/19/21 03/29/21 History pravastatin 40 mg PO HS 03/19/21 03/29/21 History hydrocodone-acetaminophen 1 - 2 tablet PO Q6H PRN #20 tablet 03/27/21 03/29/21 Rx sulfamethoxazole-trimethoprim 1 tablet PO Q12H #6 tablet 03/27/21 03/29/21 Rx Allergies Allergy/AdvReac Type Severity Reaction Status Date / Time Penicillins Allergy Mild Rash Verified 03/29/21 01:21 Vital Signs Vital Signs - 24 hr 03/28/21 18:33 03/28/21 19:27 03/28/21 20:33 Temperature 102.6 F H 100.6 F H 99.5 F Pulse Rate 95 81 Respiratory Rate 20 24 H Blood Pressure 96/52 L 96/47 L Pulse Oximetry 99 99 03/28/21 20:34 03/28/21 22:14 03/28/21 23:05 Temperatu
[2021-03-29 05:53] LABS: Hematocrit 38.6 % (37.0-47.0); Hemoglobin 12.9 g/dL (12.0-15.0); Mean Corpuscular HGB Conc 33.4 g/dl (32-36); Mean Corpuscular Hemoglobin 31.6 pg (26-34); Mean Corpuscular Volume 94.6 fl (80-100); Mean Platelet Volume 10.4 fl (7.4-10.4); Platelet Count Result 170 k/mm3 (150-375); Red Blood Count 4.08 M/mm3 (4.2-5.4); Red Cell Distribution Width 13.2 % (11.5-14.5); White Blood Count 11.5 K/mm3 (4.5-10.0)
[2021-03-29 06:02] LABS: Anion Gap 3 mmol/L (8-16); Blood Urea Nitrogen 16 mg/dL (7-17); Calcium 9.1 mg/dL (8.4-10.2); Carbon Dioxide 24 mmol/L (22-30); Chloride 109 mmol/L (98-107); Estimated CRCL calculation 40 ml/min; Estimated Glomerular Filt Rate 44; Glucose 130 mg/dL (65-105); Potassium 4.1 mmol/L (3.4-5.0); Sodium 136 mmol/L (137-145)
[2021-03-29] MEDS: HYDROcodone/acetaminophen (*CRX) 5-325 MG TABLET 1 TAB PO (07:43)
[2021-03-29] MEDS: DOCUSATE SODIUM 100 MG CAPSULE PO ×2 (07:43→16:29)
--- NOTE | 2021-03-29 10:54 | WPDANESPN ---
Anes - Prog Note Post-Op Date/Time: 03/29/21 10:54 Cardiovascular status: normal Respiratory status: normal Airway patency: baseline Mental status: baseline Post-Op hydration status: normal Vital Signs: Last Vital Signs Temp 36.4 C 03/29/21 05:46 Pulse 65 03/29/21 05:46 Resp 18 03/29/21 05:46 BP 138/72 03/29/21 05:46 Pulse Ox 97 03/29/21 05:46 Pain Score (VAS): 12/25 I/O: Intake & Output 03/28/21 03/29/21 03/29/21 23:59 07:59 15:59 Intake Total 1150 200 200 Output Total 40 450 Balance 1110 -250 200 Laboratory Tests 03/29/21 05:30 03/29/21 05:30 03/28/21 03/28/21 03/28/21 18:38 18:38 18:38 WBC 12.4 H RBC 4.68 Hgb 15.0 Hct 44.6 MCV 95.3 MCH 32.1 MCHC 33.6 RDW 13.2 Plt Count 211 MPV 10.1 Immature Gran % (Auto) Not Reportable Neut % (Auto) Not Reportable Lymph % (Auto) Not Reportable Sawyer % (Auto) Not Reportable Eos % (Auto) Not Reportable Baso % (Auto) Not Reportable Lymph # (Auto) Not Reportable Sawyer # (Auto) Not Reportable Eos # (Auto) Not Reportable Baso # (Auto) Not Reportable Abs Immat Gran (auto) Not Reportable Absolute Neuts (auto) Not Reportable Absolute Nucleated RBC Not Reportable Total Counted 100 Neutrophils % (Manual) 88 H Band Neutrophils % 4 Lymphocytes % (Manual) 4.0 L Monocytes % (Manual) 4 Nucleated RBC % Not Reportable Abs Neuts (Manual) 11.40 H Abs Lymphs (Manual) 0.49 L Abs Monocytes (Manual) 0.49 Platelet Estimate Adequate Sodium 137 Potassium 4.0 Chloride 107 Carbon Dioxide 25 Anion Gap 5 L BUN 16 Creatinine 1.80 H Estim Creat Clear Calc 27 Estimated GFR 27 L Glucose 134 H Lactic Acid 1.9 Calcium 9.5 Urine Color Urine Appearance Urine pH Ur Specific [place] Urine Protein Urine Glucose (UA) Urine Ketones Ur Blood (Man) Urine Nitrate Urine Bilirubin Urine Urobilinogen Leukocyte Esterase Rfl Urine RBC Urine WBC Ur Squamous Epith Cells Urine Bacteria Hyaline Casts Urine Mucus 03/28/21 03/29/21 03/29/21 21:00 05:30 05:30 WBC 11.5 H RBC 4.08 L Hgb 12.9 Hct 38.6 MCV 94.6 MCH 31.6 MCHC 33.4 RDW 13.2 Plt Count 170 MPV 10.4 Immature Gran % (Auto) Neut % (Auto) Lymph % (Auto) Sawyer % (Auto) Eos % (Auto) Baso % (Auto) Lymph # (Auto) Sawyer # (Auto) Eos # (Auto) Baso # (Auto) Abs Immat Gran (auto) Absolute Neuts (auto) Absolute Nucleated RBC Total Counted Neutrophils % (Manual) Band Neutrophils % Lymphocytes % (Manual) Monocytes % (Manual) Nucleated RBC % Abs Neuts (Manual) Abs Lymphs (Manual) Abs Monocytes (Manual) Platelet Estimate Sodium 136 L Potassium 4.1 Chloride 109 H Carbon Dioxide 24 Anion Gap 3 L BUN 16 Creatinine 1.20 H Estim Creat Clear Calc 40 Estimated GFR 44 L Glucose 130 H Lactic Acid Calcium 9.1 Urine Color Red H Urine Appearance Cloudy H Urine pH 5.0 Ur Specific [place] 1.026 Urine Protein 2+ H Urine Glucose (UA) Negative Urine Ketones Negative Ur Blood (Man) 3+ H Urine Nitrate Negative Urine Bilirubin Negative Urine Urobilinogen 2.0 H Leukocyte Esterase Rfl Negative Urine RBC >75 H Urine WBC 10-15 H Ur Squamous Epith Cells Many H Urine Bacteria Trace Hyaline Casts 3-4 H Urine Mucus Heavy H Post-procedural complaints: none Patient Feedback: Patient satisfied with anesthetic care.
--- NOTE | 2021-03-29 11:22 | PM.IMPN ---
Progress Note: A&P Assessment and Plan (1) Sepsis: Code(s): A41.9 - Sepsis, unspecified organism Status: Acute Assessment and Plan: Septic at presentation with fever (T-max 102.6?), leukocytosis, and tachypnea. qSOFA score 2. Source of infection felt to be UTI. Resolving. She has been afebrile today and leukocytosis is improving. No evidence of acute organ dysfunction IV fluids discontinued as she is tolerating p.o. intake Monitor vital signs, electrolytes, and urine output (2) Acute UTI: Code(s): N39.0 - Urinary tract infection, site not specified Status: Acute Assessment and Plan: Urinalysis grossly abnormal Continue IV Rocephin Urine cultures pending. Await results and antibiotics accordingly Blood cultures pending (3) Ureterolithiasis: Code(s): N20.1 - Calculus of ureter Status: Acute Assessment and Plan: Status post right ureteroscopy with stone extraction on 03/27/2021 and right ureteral stent insertion on 03/28/2021. Appreciate urology consultation Ronald p.r.n. bladder spasm (4) JERRY (acute kidney injury): Code(s): N17.9 - Acute kidney failure, unspecified Status: Acute Assessment and Plan: Creatinine 1.8 at presentation. Suspect post-renal obstructive etiology secondary to ureterolithiasis. Creatinine improved today at 1.2 following ureteral stent placement. Monitor renal function closely Encourage p.o. fluid intake Subjective Date/time seen: 03/29/21 11:22 Interval history: Date of service: 03/29/2021 Mahsa Cannon is a 75-year-old female with a history of hypertension, GERD, and hypothyroidism who is seen in follow-up for sepsis secondary to suspected UTI. She is feeling much better today. She has not had any more fevers. She endorses chills. She felt a little bit dizzy and lightheaded this morning but was able to get up and walk around without any difficulty and did not feel off balance. She has a Azevedo in place and reports that she is feeling some pressure due to this and also from the ureteral stent. She endorses blood in her urine. She denies suprapubic pain, flank pain, or back pain. No nausea or vomiting. She feels a bit bloated and states that her last bowel movement was about 3 days ago. She has been eating and drinking well. She denies shortness breath, cough, or chest pain Review of Systems Review of Systems: All systems reviewed & are unremarkable except as noted in HPI and below Exam Narrative: Exam Narrative: Ms. Cannon is a well-nourished, well-appearing 75-year-old female who is lying supine in bed. She appears comfortable and is in NARD. Neuro: awake, alert and oriented x4, speech clear, no focal neuro deficits noted HEENMT: normocephalic, atraumatic, EOMI, sclerae anicteric, moist oral mucosa, tongue midline, nares patent Neck: supple, no lymphadenopathy Respiratory: clear to auscultation bilaterally, nonlabored breathing Cardio: regular rate, regular rhythm with S1-S2 Abdomen: nondistended, normoactive bowel sounds, soft, nontender to palpation, no rigidity or guarding : No CVA tenderness, Azevedo catheter patent and draining dark reddish urine Extremities: no edema, erythema, cyanosis, clubbing, or tenderness to palpation, DP pulses 2+ bilaterally Skin: no rashes or lesions, warm and dry Psych: appropriate mood and affect, judgment and insight intact Objective Data Vital Signs Vital Signs: Vital Signs - 24 hr 03/28/21 18:33 03/28/21 19:27 03/28/21 20:33 Temperature 102.6 F H 100.6 F H 99.5 F Pulse Rate 95 81 Respiratory Rate 20 24 H Blood Pressure 96/52 L 96/47 L Pulse Oximetry 99 99 03/28/21 20:34 03/28/21 22:14 03/28/21 23:05 Temperature 99.5 F 99.0 F 99 F Pulse Rate 70 70 Respiratory Rate 17 20 Blood Pressure 94/44 L 94/44 L Pulse Oximetry 98 100 03/28/21 23:27 03/28/21 23:40 03/28/21 23:55 Temperature 99.5 F 98.5 F Pulse Ra
--- NOTE | 2021-03-29 13:52 | WPDUROPN2 ---
Progress Note: A&P Assessment and Plan (1) JERRY (acute kidney injury): Code(s): N17.9 - Acute kidney failure, unspecified Status: Acute Assessment and Plan: -renal function improving (2) Sepsis: Code(s): A41.9 - Sepsis, unspecified organism Status: Acute Assessment and Plan: -continue IV ceftriaxone. Await final cultures -continue Azevedo catheter today, plan void trial in the morning. -patient will need definitive stone management on outpatient basis (3) Right ureteral stone: Code(s): N20.1 - Calculus of ureter Status: Acute Subjective Subjective Date/Time Seen: 03/29/21 13:52 Patient states she is feeling better Exam Narrative: Exam Narrative: Patient comfortable, no acute distress. Breathing is unlabored. Azevedo catheter is clear. Objective Data Vital Signs Vital Signs: Vital Signs - 24 hr 03/28/21 18:33 03/28/21 19:27 03/28/21 20:33 Temperature 39.2 C H 38.1 C H 37.5 C Pulse Rate 95 81 Respiratory Rate 20 24 H Blood Pressure 96/52 L 96/47 L Pulse Oximetry 99 99 03/28/21 20:34 03/28/21 22:14 03/28/21 23:05 Temperature 37.5 C 37.2 C 37.2 C Pulse Rate 70 70 Respiratory Rate 17 20 Blood Pressure 94/44 L 94/44 L Pulse Oximetry 98 100 03/28/21 23:27 03/28/21 23:40 03/28/21 23:55 Temperature 37.5 C 36.9 C Pulse Rate 88 86 82 Respiratory Rate 16 16 16 Blood Pressure 99/52 L 93/46 L 108/48 L Pulse Oximetry 96 95 97 03/29/21 00:10 03/29/21 00:22 03/29/21 00:45 Temperature 36.6 C Pulse Rate 80 80 81 Respiratory Rate 16 18 18 Blood Pressure 91/55 L 99/46 L 142/68 H Pulse Oximetry 100 97 94 03/29/21 01:04 03/29/21 01:30 03/29/21 02:30 Temperature 36.2 C L 36.2 C L 36.4 C Pulse Rate 81 78 60 Respiratory Rate 20 20 18 Blood Pressure 130/66 128/70 128/72 Pulse Oximetry 97 96 94 03/29/21 05:46 Temperature 36.4 C Pulse Rate 65 Respiratory Rate 18 Blood Pressure 138/72 Pulse Oximetry 97 Intake/Output Intake/Output: Intake & Output 03/26/21 03/27/21 03/28/21 03/29/21 23:59 23:59 23:59 23:59 Intake Total 1150 400 Output Total 40 450 Balance 1110 -50 Meds/Results Medications: Active Medications Generic Name Dose Route Start Last Admin Trade Name Freq PRN Reason Stop Dose Admin Acetaminophen 650 mg 03/29/21 11:42 Acetaminophen 325 Mg Tablet PO Q4H PRN Pain 1-3, fever Hydrocodone Bitart/Acetaminophen 1 tab 03/29/21 00:28 03/29/21 07:43 Hydrocodone/Acetaminophen (*Crx) 5-325 Mg Tablet PO 1 tab Q4H PRN Administration Pain Rated 1-6 Docusate Sodium 100 mg 03/29/21 09:00 03/29/21 07:43 Docusate Sodium 100 Mg Capsule PO 100 mg BID SHRUTHI Administration Dorzolamide HCl 1 drop 03/29/21 12:15 Dorzolamide Hcl 2% Ophth Drops EACH EYE Q12HR [facility] Famotidine 40 mg 03/29/21 12:15 Famotidine 20 Mg Tablet PO DAILY [facility] Hyoscyamine 0.125 mg 03/29/21 00:28 Hyoscyamine Sulfate 0.125 Mg Tablet SUBLINGUAL Q6H PRN Bladder Spasm Ceftriaxone Sodium/Dextrose 1 gm in 50 mls @ 100 mls/hr 03/29/21 21:00 Rocephin 1 Gm/D5w 50 Ml IVPB Q24H [facility] Levothyroxine Sodium 100 mcg 03/30/21 06:30 Levothyroxine Sodium 100 Mcg Tablet PO DAILY@0630 [facility] Metoprolol Succinate 25 mg 03/29/21 12:15 Metoprolol Succinate Ext Rel 25 Mg Tabcr PO NOON [facility] Morphine Sulfate 2 mg 03/29/21 00:28 Morphine Sulfate (*Crx) 2 Mg/Ml Inj IV PUSH Q2H PRN Pain Rated 7-10 Naloxone HCl 0.1 mg 03/29/21 00:28 Naloxone Hcl 0.4 Mg/Ml Vial IV PUSH Q2M PRN Opiate Reversal Ondansetron HCl 4 mg 03/29/21 00:28 Ondansetron Inj 4 Mg/2 Ml Vial IV PUSH Q12H PRN Nausea And Vomiting Polyethylene Glycol 17 gm 03/29/21 11:45 Polyethylene Glycol 3350 17 Gm Powd.Pack PO QAM [facility] Pravastatin Sodium 40 mg 03/29/21 21:00 Pravastatin Sodium 20 Mg Tablet PO HS [facility] Radiology Results: ITS Impressi
[2021-03-29] MEDS: FAMOTIDINE 20 MG TABLET 40 MG PO (14:51)
[2021-03-29] MEDS: polyethylene glycoL 3350 17 GM POWD.PACK PO (14:51)
[2021-03-29] MEDS: METOPROLOL SUCCINATE EXT REL 25 MG TABCR PO (14:51)
[2021-03-29] MEDS: DORZOLAMIDE HCL 2% OPHTH DROPS 1 DROP EACH EYE ×2 (16:30→21:55)
[2021-03-29] MEDS: PRAVASTATIN SODIUM 20 MG TABLET 40 MG PO (20:46)
--- NOTE | 2021-03-29 21:43 | PC.NURSE ---
Taj Escobar gave the ok to restart the patient's home med, combigan eye drop. This medication is not available in combination. Spoke with pharmacy and was told we could order the 2 components (brimonidine 0.2 and timolol 0.5) if pt does not have her home med eye drop here.
[2021-03-29] MEDS: LOSARTAN POTASSIUM 25 MG TABLET PO (21:54)
[2021-03-29] MEDS: BRIMONIDINE TARTRATE 0.2% OP SOLN 5 ML BTL 1 DROP EACH EYE (21:56)
[2021-03-29] MEDS: TIMOLOL MALEATE 0.5% OP SOLN 5 ML BOTTLE 1 DROP EACH EYE (21:56)
[2021-03-30] MEDS: HYDROcodone/acetaminophen (*CRX) 5-325 MG TABLET 1 TAB PO ×2 (02:47→08:07)
[2021-03-30 05:19] VITALS: BP 174/70; PULSE 66; RESP 16; TEMP 36.8; O2SAT 97
[2021-03-30 06:09] LABS: Hematocrit 42.4 % (37.0-47.0); Hemoglobin 13.9 g/dL (12.0-15.0); Mean Corpuscular HGB Conc 32.8 g/dl (32-36); Mean Corpuscular Hemoglobin 31.8 pg (26-34); Mean Platelet Volume 10.3 fl (7.4-10.4); Platelet Count Result 177 k/mm3 (150-375); Red Blood Count 4.37 M/mm3 (4.2-5.4); Red Cell Distribution Width 13.3 % (11.5-14.5); White Blood Count 8.1 K/mm3 (4.5-10.0)
[2021-03-30 06:19] LABS: Anion Gap 2 mmol/L (8-16); Blood Urea Nitrogen 14 mg/dL (7-17); Calcium 9.4 mg/dL (8.4-10.2); Carbon Dioxide 29 mmol/L (22-30); Chloride 108 mmol/L (98-107); Estimated CRCL calculation 52 ml/min; Estimated Glomerular Filt Rate > 60; Glucose 112 mg/dL (65-105); Potassium 3.9 mmol/L (3.4-5.0); Sodium 139 mmol/L (137-145)
[2021-03-30] MEDS: LEVOTHYROXINE SODIUM 100 MCG TABLET PO (06:19)
[2021-03-30] MEDS: FAMOTIDINE 20 MG TABLET 40 MG PO (08:01)
[2021-03-30] MEDS: polyethylene glycoL 3350 17 GM POWD.PACK PO (08:01)
[2021-03-30] MEDS: DOCUSATE SODIUM 100 MG CAPSULE PO (08:01)
[2021-03-30] MEDS: TIMOLOL MALEATE 0.5% OP SOLN 5 ML BOTTLE 1 DROP EACH EYE (08:02)
[2021-03-30] MEDS: BRIMONIDINE TARTRATE 0.2% OP SOLN 5 ML BTL 1 DROP EACH EYE (08:08)
[2021-03-30] MEDS: DORZOLAMIDE HCL 2% OPHTH DROPS 1 DROP EACH EYE (08:24)
[2021-03-30] MEDS: cloNIDine HCL 0.1 MG TABLET PO ×2 (08:25→12:06)
[2021-03-30 12:05] VITALS: BP 142/74; PULSE 59
[2021-03-30] MEDS: METOPROLOL SUCCINATE EXT REL 25 MG TABCR PO (12:05)
--- NOTE | 2021-03-30 12:23 | PM.PROC ---
Procedure Note - Detailed Date of procedure: 04/23/21 Pre-op diagnosis: fever, dizzy Surgeon: Brooks King MD
--- NOTE | 2021-03-30 12:23 | WPDUROPN2 ---
Progress Note: A&P Assessment and Plan (1) Right ureteral stone: Code(s): N20.1 - Calculus of ureter Status: Acute Assessment and Plan: -continue IV ceftriaxone. Urine culture is negative, I recommend the patient be sent home with 10 additional days of Omnicef. -okay to remove Azevedo catheter today as she has been afebrile. -plan discharge home. patient will need definitive stone management on outpatient basis (2) Acute UTI: Code(s): N39.0 - Urinary tract infection, site not specified Status: Acute Subjective Subjective Date/Time Seen: 03/30/21 12:23 No overnight events, feeling well Exam Narrative: Exam Narrative: The patient is awake alert and oriented in no acute distress. Patient is breathing is unlabored. Her abdomen soft nontender nondistended. Objective Data Vital Signs Vital Signs: Vital Signs - 24 hr 03/29/21 14:13 03/29/21 14:51 03/29/21 16:10 Temperature 36.1 C L Pulse Rate 76 65 Respiratory Rate 14 Blood Pressure 144/92 H 102/60 Pulse Oximetry 97 03/29/21 16:14 03/29/21 18:13 03/29/21 22:13 Temperature 35.9 C L 36.1 C L Pulse Rate 65 66 Respiratory Rate 14 16 Blood Pressure 108/71 151/68 H 177/79 H Pulse Oximetry 97 97 03/30/21 05:19 03/30/21 12:05 Temperature 36.8 C Pulse Rate 66 59 L Respiratory Rate 16 Blood Pressure 174/70 H 142/74 H Pulse Oximetry 97 Intake/Output Intake/Output: Intake & Output 03/27/21 03/28/21 03/29/21 03/30/21 23:59 23:59 23:59 23:59 Intake Total 1150 890 640 Output Total 40 1300 2000 Balance 0226 -673 -0920 Meds/Results Medications: Active Medications Generic Name Dose Route Start Last Admin Trade Name Freq PRN Reason Stop Dose Admin Acetaminophen 650 mg 03/29/21 11:42 Acetaminophen 325 Mg Tablet PO Q4H PRN Pain 1-3, fever Hydrocodone Bitart/Acetaminophen 1 tab 03/29/21 00:28 03/30/21 08:07 Hydrocodone/Acetaminophen (*Crx) 5-325 Mg Tablet PO 1 tab Q4H PRN Administration Pain Rated 1-6 Brimonidine Tartrate 1 drop 03/29/21 21:45 03/30/21 08:08 Brimonidine Tartrate 0.2% Op Soln 5 Ml Btl EACH EYE 1 drop Q12HR SHRUTHI Administration Clonidine HCl 0.1 mg 03/30/21 09:00 03/30/21 12:06 Clonidine Hcl 0.1 Mg Tablet PO 0.1 mg TID SHRUTHI Administration Docusate Sodium 100 mg 03/29/21 09:00 03/30/21 08:01 Docusate Sodium 100 Mg Capsule PO 100 mg BID [facility] Administration Dorzolamide HCl 1 drop 03/29/21 12:15 03/30/21 08:24 Dorzolamide Hcl 2% Ophth Drops EACH EYE 1 drop Q12HR [facility] Administration Famotidine 40 mg 03/29/21 12:15 03/30/21 08:01 Famotidine 20 Mg Tablet PO 40 mg DAILY [facility] Administration Hyoscyamine 0.125 mg 03/29/21 00:28 Hyoscyamine Sulfate 0.125 Mg Tablet SUBLINGUAL Q6H PRN Bladder Spasm Ceftriaxone Sodium/Dextrose 1 gm in 50 mls @ 100 mls/hr 03/29/21 21:00 03/29/21 21:16 Rocephin 1 Gm/D5w 50 Ml IVPB Infused Q24H [facility] Infusion Levothyroxine Sodium 100 mcg 03/30/21 06:30 03/30/21 06:19 Levothyroxine Sodium 100 Mcg Tablet PO 100 mcg DAILY@0630 [facility] Administration Losartan Potassium 50 mg 03/30/21 21:00 Losartan Potassium 50 Mg Tablet PO HS [facility] Metoprolol Succinate 25 mg 03/29/21 12:15 03/30/21 12:05 Metoprolol Succinate Ext Rel 25 Mg Tabcr PO 25 mg NOON [facility] Administration Morphine Sulfate 2 mg 03/29/21 00:28 Morphine Sulfate (*Crx) 2 Mg/Ml Inj IV PUSH Q2H PRN Pain Rated 7-10 Naloxone HCl 0.1 mg 03/29/21 00:28 Naloxone Hcl 0.4 Mg/Ml Vial IV PUSH Q2M PRN Opiate Reversal Ondansetron HCl 4 mg 03/29/21 00:28 Ondansetron Inj 4 Mg/2 Ml Vial IV PUSH Q12H PRN Nausea And Vomiting Polyethylene Glycol 17 gm 03/29/21 11:45 03/30/21 08:01 Polyethylene Glycol 3350 17 Gm Powd.Pack PO 17 gm QAM SHRUTHI Administration Pravastatin Sodium 40 mg 03/29/21 21:00 03/29/21 20:46 Pravastatin Sodium 20 Mg Tablet P
[2021-03-30 14:00] VITALS: BP 139/60; PULSE 66; RESP 14; TEMP 36; O2SAT 95
--- NOTE | 2021-03-30 14:52 | PM.DS ---
DS: Admitting Diagnosis Admitting Diagnosis Admitting Diagnosis: Sepsis, UTI DS: Discharge Diagnosis Discharge Diagnosis (1) Sepsis: Code(s): A41.9 - Sepsis, unspecified organism Status: Acute Assessment and Plan: Resolved. Septic at presentation with fever (T-max 102.6?), leukocytosis, and tachypnea. qSOFA score 2. Source of infection felt to be UTI. She remained afebrile and leukocytosis resolved. No evidence of acute organ dysfunction. She was rehydrated with IV fluids and was tolerating p.o. intake. Blood cultures negative to date and final results will be monitored. (2) Acute UTI: Code(s): N39.0 - Urinary tract infection, site not specified Status: Acute Assessment and Plan: Urinalysis was grossly abnormal. She was treated with IV Rocephin. Urine cultures were negative, however antibiotics were continued based on symptoms. She will continue p.o. cefdinir x10 days per Urology recommendations and follow up as an outpatient. (3) Ureterolithiasis: Code(s): N20.1 - Calculus of ureter Status: Acute Assessment and Plan: Status post right ureteroscopy with stone extraction on 03/27/2021 and right ureteral stent insertion on 03/28/2021. She will need outpatient urology follow up for definitive stone management. P.r.n. oxybutynin for bladder spasm (4) JERRY (acute kidney injury): Code(s): N17.9 - Acute kidney failure, unspecified Status: Acute Assessment and Plan: Creatinine 1.8 at presentation. Suspect post-renal obstructive etiology secondary to ureterolithiasis. Creatinine levels normalized following ureteral stent placement. Renal function returned to baseline. DS: Summary Hospital Course Reason for hospitalization: Sepsis, UTI Hospital Course: Date admission: 03/29/2021 Date of discharge: 03/30/2021 Mahsa Cannon is a 75-year-old female with a history of hypertension, GERD, and hypothyroidism who was admitted to the hospitalist service on 03/29/2020 after undergoing right ureteroscopy, to sign extraction, right ureteral stent placement. She subsequently developed fever with T-max 103?. Upon admission her vital signs are stable and she was afebrile, she had mild leukocytosis, and elevated serum creatinine. She was seen in consultation by Urology. Please see above further details. She was treated with IV antibiotics sepsis resolved. She will continue p.o. antibiotics and follow-up with urology as an outpatient for definitive stone management. She was feeling very well and was eager for discharge home. Given her overall improvement, she was determined to no longer require inpatient care and was felt to be stable for discharge. We discussed worrisome signs and symptoms for which to return and she was educated on her medications. She was discharged in hemodynamically stable condition on 03/30/2021. Status at Discharge Functional status at discharge: independent ambulation Overall status at discharge: patient is back to baseline Time Spent with Patient Time attestation: Total time spent providing and/or coordinating discharge services: 45 minutes Time spent: Greater than 30 minutes Exam Narrative: Exam Narrative: Ms. Cannon is a well-nourished, well-appearing 75-year-old female who is lying supine in bed. She appears comfortable and is in NARD. Neuro: awake, alert and oriented x4, speech clear, no focal neuro deficits noted HEENMT: normocephalic, atraumatic, EOMI, sclerae anicteric, moist oral mucosa, tongue midline, nares patent Neck: supple, no lymphadenopathy Respiratory: clear to auscultation bilaterally, nonlabored breathing Cardio: regular rate, regular rhythm with S1-S2 Abdomen: nondistended, normoactive bowel sounds, soft, nontender to palpation, no rigidity or guarding : No CVA tenderness Extremities: no edema, erythema, cyanosis, clubbing, or tenderness to palpation, DP pulses 2+ bilaterally Skin: no rashes or lesio
== END 2021-03-30 16:20 | disposition home or self-care (01) | DRG 660 ==
LOC: ANHED 19:40 → ANHSURGERY 22:40 → ANH2MED 03-29 00:42
PROVIDERS: General Practice; Physician Assistant; Urology; Admitting Provider Internal Medicine; Emergency Provider Emergency Medicine; PCP Family Medicine; Visit Provider Internal Medicine
PROC: 0T768DZ Dilation of Right Ureter with Intraluminal Device, Via Natural or Artificial Opening Endoscopic (ICD-10-PCS; CPT 52352; principal; 2021-03-28 23:00)
DX: N39.0 Urinary tract infection, site not specified (principal); N20.1 Calculus of ureter; N17.9 Acute kidney failure, unspecified; I10 Essential (primary) hypertension; E78.5 Hyperlipidemia, unspecified; K21.9 Gastro-esophageal reflux disease without esophagitis; E03.9 Hypothyroidism, unspecified
CPT/HCPCS: 36415; 71046; 74176; 74420; 80048; 81001; 83605; 85025; 85027; 87040; 87086; 96361; 96365; 96375; 99285; A9270; C1769; C1887; C2617; G0378; J0131; J0696; J1100; J2405; J2704; J3010; J7030; J7120; Q9966

== ENCOUNTER → 2021-04-08 10:13 | Outpatient (CLI) | payer MEDICARE, SELFPAY ==
--- NOTE | ~2021-04-08 | XR_ITS ---
XR abdomen/kub 1V 04/08/2021 11:35 Indication: Kidney stones Procedure: KUB Comparison: 03/17/2021 Findings: There is a right internal ureteral stent in expected position. There are cholecystectomy cl ips. There is moderate colonic fecal loading limiting evaluation of the kidneys for stones. There are pelvic phleboliths. Moderate lumbar spondylosis. No acute osseous abnormality. Impression: 1: No acute abdominal abnormality. Reviewed, dictated and finalized at location A. Impression: 1: No acute abdominal abnormality.
== END ==
PROVIDERS: PCP Family Medicine; Visit Provider Urology
DX: N20.0 Calculus of kidney (principal)
CPT/HCPCS: 74018

== ENCOUNTER 2021-04-15 13:23 | Outpatient (CLI) | payer MEDICARE, SELFPAY ==
--- NOTE | ~2021-04-15 | US_ITS ---
Please refer to diagnostic mammogram report dated 04/15/2021 for details. Reviewed, dictated and finalized at location A.
--- NOTE | ~2021-04-15 | MM_ITS ---
EXAMINATION: MM diagnostic mammo unilat LT HISTORY: Follow-up left breast asymmetry TECHNIQUE: Additional 3-D tomosynthesis images of the left breast were performed and synthetic 2-D im ages were generated. CAD analysis was submitted and interpreted. High resolution Limited left breast ultrasound was performed. COMPARISON: Mammogram dated 05/25/2014 BREAST PARENCHYMAL COMPOSITION: Breast composed of scattered areas of fibroglandular density. FINDINGS: MAMMOGRAPHIC FINDINGS: Focal asymmetry in the upper outer quadrant of the left breast is less dense with spot compression vi ews and most likely represents scarring/fibrosis following prior breast implant explantation. No disc rete mass or suspicious calcifications are identified. ULTRASOUND: Limited left breast ultrasound: Normal heterogeneous echotexture without focal solid or cystic mass. IMPRESSION: 1. No evidence for malignancy in the left breast. 2. Routine yearly screening mammogram and regular clinical breast examination are recommended. BI-RADS Category 2: Benign finding(s). Reviewed, dictated and finalized at location A. IMPRESSION: 1. No evidence for malignancy in the left breast. 2. Routine yearly screening mammogram and regular clinical breast examination a re recommended. BI-RADS Category 2: Benign finding(s).
== END 2021-04-15 13:24 | disposition home or self-care (01) ==
LOC: ANHIMG 13:24
PROVIDERS: PCP Family Medicine; Visit Provider Obstetrics & Gynecology
DX: R92.8 Other abnormal and inconclusive findings on diagnostic imaging of breast (principal)
CPT/HCPCS: 76642; 77065

== ENCOUNTER 2021-06-04 01:05 | Day surgery (SDC) | payer MEDICARE, SELFPAY ==
[2021-05-30 11:08] VITALS: BMI 31.7
[2021-06-04] MEDS: ACETAMINOPHEN 500 MG TABLET 1000 MG PO (09:32)
[2021-06-04] MEDS: LACTATED RINGERS 1,000 ML 30 ML IV CONT (09:33)
[2021-06-04 09:57] VITALS: BP 124/70; PULSE 63; RESP 18; TEMP 37.2; O2SAT 98
--- NOTE | 2021-06-04 10:36 | PM.IMHP ---
H&P: HPI History of Present Illness Date/Time: 06/04/21 10:36 Patient with history of thickened endometrial stripe seen on finding on CT and subsequent ultrasound. No history of postmenopausal bleeding. She had an attempted office endometrial biopsy twice and unsuccessful due to scarring at cervix. I suspect that the thickened endometrial stripe may be due to accumulated fluid which is secondary to cervical stenosis. She has never had postmenopausal bleeding. She was informed that the thickened endometrial findings needs to be evaluated by endometrial sampling. She was informed that the procedure entails dilating or opening her cervix and then possibly, if necessary, looking inside uterine cavity with a camera. If there is anything in the cavity like a polyp or fibroid or abnormal appearing area then will remove it with an instrument. Risk of procedure is bleeding infection injury to other organs in area and need to repair and or remove those organs if necessary. Risk of a laparoscopy. Risk of not being able to perform the procedure. Risk of uterine perforation. Risk of hysterectomy. There is usually minimal blood loss. Will need to be on pelvic rest for two weeks. May have discharge for several weeks after procedure. Questions answered consent signed. Chief Complaint: Thickened endometrial lining. Review of Systems Review of Systems: All systems reviewed & are unremarkable except as noted in HPI and below Cardiovascular: Cardiovascular: Reports no additional cardiovascular complaints, Denies chest pain and Denies dyspnea Respiratory: Respiratory: Reports no additional respiratory complaints and Denies dyspnea Gastrointestinal: Gastrointestinal: Reports abdominal pain, Denies change in bowel habits, Denies diarrhea, Denies nausea and Denies vomiting Genitourinary: Genitourinary: Reports pelvic pain Musculoskeletal: Musculoskeletal: Reports back pain Integumentary/Breasts: Skin/Breast: Reports system reviewed and no additional complaints, except as docu Neurologic: Reports system reviewed and no additional complaints, except as documented [facility] Past Medical History Medical History GERD (gastroesophageal reflux disease) History of nephrolithotomy with removal of calculi 03/27/21 History of stent insertion of renal artery 03/28/21 Hypertension Thyroid disorder Surgical History Surgical History H/O breast surgery S/P cholecystectomy S/P ERCP Family History Family History Father Thyroid cancer Hypertension Cerebrovascular accident Other Hypertension Thyroid disorder Sibling Hypertension Heart disease Son Hypertension Social History Social History Smoking status: Never smoker Second hand tobacco smoke exposure: No Alcohol intake: never Substance use: never Substance use type: does not use Living arrangements: with family Gender identity (if verbalized by the patient): Female Spiritual care concerns: No Meds Home Medications and Allergies Home Medications Medication Instructions Recorded Confirmed Type Combigan 1 drp OPHTHALMIC (EYE) BID 03/19/21 06/04/21 History clonidine HCl 0.1 mg PO TID 03/19/21 06/04/21 History dorzolamide 1 drp OPHTHALMIC (EYE) BID 03/19/21 06/04/21 History famotidine 40 mg PO DAILY 03/19/21 06/04/21 History levothyroxine 100 mcg PO DAILY 03/19/21 06/04/21 History metoprolol succinate 25 mg PO QNOON 03/19/21 06/04/21 History omeprazole 40 mg PO DAILY 03/19/21 06/04/21 History pravastatin 40 mg PO HS 03/19/21 06/04/21 History losartan 50 mg PO HS 03/29/21 06/04/21 History misoprostol 200 mcg tablet 200 mcg PO .COMPLEX #2 tablet 05/22/21 06/04/21 Rx Allergies Allergy/AdvReac Type Severity Reaction Status Date / Time Penicillins Allergy Mild R
--- NOTE | 2021-06-04 10:41 | WPDHPUPDATE1 ---
History and Physical Update Update Date/Time: 06/04/21 10:41 History and Physical has been reviewed, including an updated exam of the patient. There are NO changes in the patient's condition. Risks, benefits, and alternatives have been discussed and questions answered. Patient agrees to proceed with procedure.
--- NOTE | 2021-06-04 10:55 | WPDANESEPPF ---
Anes - Initial Pre Proc Eval Procedure: Operation Date: 06/04/21 11:00 Proposed Procedures p Hysteroscopy Dilation and Curettage - Jl Marie MD Date/Time: 06/04/21 10:55 Surgeon: lJ Marie MD Pre Op Diagnosis: endometrial thickening Patient Data Age: 76 Gender: F Height: 1.65 m Weight: 89.1 kg Last Vital Signs Temp 98.9 F 06/04/21 09:57 Pulse 63 06/04/21 09:57 Resp 18 06/04/21 09:57 BP 124/70 06/04/21 09:57 Pulse Ox 98 06/04/21 09:57 Allergies Allergy/AdvReac Type Severity Reaction Status Date / Time Penicillins Allergy Mild Rash Verified 06/04/21 09:53 Home Medications Medication Instructions Recorded Confirmed Type Combigan 1 drp OPHTHALMIC (EYE) BID 03/19/21 06/04/21 History clonidine HCl 0.1 mg PO TID 03/19/21 06/04/21 History dorzolamide 1 drp OPHTHALMIC (EYE) BID 03/19/21 06/04/21 History famotidine 40 mg PO DAILY 03/19/21 06/04/21 History levothyroxine 100 mcg PO DAILY 03/19/21 06/04/21 History metoprolol succinate 25 mg PO QNOON 03/19/21 06/04/21 History omeprazole 40 mg PO DAILY 03/19/21 06/04/21 History pravastatin 40 mg PO HS 03/19/21 06/04/21 History losartan 50 mg PO HS 03/29/21 06/04/21 History misoprostol 200 mcg tablet 200 mcg PO .COMPLEX #2 tablet 05/22/21 06/04/21 Rx Patient hx anesthesia problems: none Family hx anesthesia problems: none PMFSH Past Medical History Medical History GERD (gastroesophageal reflux disease) History of nephrolithotomy with removal of calculi 03/27/21 History of stent insertion of renal artery 03/28/21 Hypertension Thyroid disorder Surgical History Surgical History H/O breast surgery S/P cholecystectomy S/P ERCP Family History Family History Father Thyroid cancer Hypertension Cerebrovascular accident Other Hypertension Thyroid disorder Sibling Hypertension Heart disease Son Hypertension Social History Social History Smoking status: Never smoker Second hand tobacco smoke exposure: No Alcohol intake: never Substance use: never Substance use type: does not use Living arrangements: with family Gender identity (if verbalized by the patient): Female Spiritual care concerns: No Anes - Eval Final PreProcedure Day of Procedure 06/04/21 10:55 Patient weight: obese Heart: regular rate and rhythm Lungs: clear to auscultation Airway: Mallampati scale class II Neurological: alert and oriented Last oral intake: >/= 8 hours ASA classification: III Emergent: no Anesthetic plan: proceed Anesthesia type and monitoring: general GIVS and standard monitoring Informed Consent: The patient's anesthetic plan and its attendant risks and benefits were discussed with the patient/family/POA. Questions were solicited and answers provided to the satisfaction of the patient/family/POA.
[2021-06-04] MEDS: ceFAZolin 2 GM/D5W 50 ML 2 GM/50 ML BAG IVPB (11:15)
[2021-06-04 11:43] VITALS: BP 132/69; PULSE 77; RESP 12; O2SAT 96
--- NOTE | 2021-06-04 11:46 | W.PM.PROC2 ---
Procedure Note - Detailed Date of Procedure 06/04/21 Pre-op Diagnosis endometrial thickening Post-op Diagnosis same ( Atrophic endometrial cavity .) Procedure Performed Dilation and curettage Surgeon Jl Marie MD Anesthesia MAC and local Indications patient with history of thickened endometrial stripe on ultrasound. She has never had any postmenopausal bleeding. She states that over 5 years ago she had this finding and due to her cervical scarring could not assess it. Findings The os was very scarred. Lacrimal duct dilators were used to open os. The sound was 6 cm anteriorly and posteriorly questionable 8 cm. There was no bleeding at the os. The the cavity appeared very atrophic. Minimal tissue obtained with the curettage. Description of Procedure after informed consent was obtained patient was taken to the operating room and IV sedation was obtained. She was placed in modified highlithotomy position and prepped and draped in sterile fashion. Speculum was inserted. Single-tooth tenaculum placed on anterior lip of the cervix. A total of 10 cc of 1% lidocaine was injected at the cervical vaginal interface at 258 in 10:00 a.m.. Lacrimal duct was used to gradually dilate the cervix and also once the scarring was through with the lacrimal duct then the os binder was inserted was able to insert the os binder to about 2 cm. The smallest dilator was then inserted. The sound was then inserted and sounded anteriorly to 7 cm there was questionable 8 cm posteriorly. The cervix was further dilated to allow the smallest curettaged to enter. Attempted to insert the hysteroscope but did insert past a cm due to the tightness of the uterus and concern that further entering it could create canal which was not sure if the dilators created a canal or if it was the cervix. A curettage was performed and the cavity felt like it very atrophic cavity there was minimal tissue obtained. There was no bleeding at the os. The tenaculum was removed hemostasis was noted the patient tolerated procedure well. She was taken to recovery in stable condition sponge count was correct. Estimated Blood Loss 5 Drains No Packing No Pathology yes ( minimal to scant endometrial curetting) Complications No immediate complications Condition stable Disposition floor
[2021-06-04 12:15] VITALS: BP 123/64; PULSE 66; RESP 20
[2021-06-04 12:45] VITALS: BP 134/67; PULSE 57; RESP 12
== END 2021-06-04 13:06 | disposition home or self-care (01) ==
PROVIDERS: PCP Family Medicine; Visit Provider Obstetrics & Gynecology
PROC: 0U5B8ZZ Destruction of Endometrium, Via Natural or Artificial Opening Endoscopic (ICD-10-PCS; CPT 58563; principal; 2021-06-04 11:00)
DX: R93.89 Abnormal findings on diagnostic imaging of other specified body structures (principal); K21.9 Gastro-esophageal reflux disease without esophagitis; I10 Essential (primary) hypertension; E07.9 Disorder of thyroid, unspecified; E66.9 Obesity, unspecified; Z68.32 Body mass index [BMI] 32.0-32.9, adult
CPT/HCPCS: 58558; 88305; A9270; J0690; J2704; J3010; J7030; J7120

== ENCOUNTER → 2021-11-17 11:52 | Outpatient (CLI) | payer MEDICARE, SELFPAY ==
--- NOTE | ~2021-11-17 | XR_ITS ---
XR abdomen/kub 1V DATE: 11/17/2021 12:08 INDICATION: Kidney calculus TECHNIQUE: AP views COMPARISON: 04/08/2021 KUB FINDINGS: There are right upper quadrant surgical clips consistent with cholecystectomy. The psoas shadows are intact. No bowel obstruction or free air is detected. There is degenerative spurring of the thoracic and lumbar spine. Normal heart size. There is eventration of the right leaf of the diaphragm. The lung bases are mandy r. There is degenerative change of the thoracic and lumbar spine. IMPRESSION: No evidence of bowel obstruction Status post cholecystectomy Reviewed, dictated and finalized at Location A. Reviewed, dictated and finalized at location A. TICS LIFEGUARD
== END ==
PROVIDERS: PCP Family Medicine; Visit Provider Urology
DX: N20.0 Calculus of kidney (principal); Z90.49 Acquired absence of other specified parts of digestive tract
CPT/HCPCS: 74018

== ENCOUNTER → 2021-12-31 10:21 | Outpatient (CLI) | payer MEDICARE, SELFPAY ==
--- NOTE | ~2021-12-31 | XR_ITS ---
XR lumbar spine 2-3V DATE: 12/31/2021 10:41 INDICATION: Low back pain TECHNIQUE: AP, lateral, coned lateral lumbosacral views COMPARISON: None FINDINGS: Surgical clips, right upper quadrant, consistent with cholecystectomy. There is degenerative spurring in the lower thoracic spine. There is minimal grade 1 anterolisthesis at L4-5 likely due to degenerative change at the apophyseal joints. There is mild degenerative disc disease at L1-2, L2-3 and L5-S1, moderate degenerative disc disease a t L4-5. No fracture or bone destruction is evident. The included lower thoracic and lumbar pedicles are intac t. The sacroiliac joints appear normal. IMPRESSION: Multilevel mild to moderate degenerative disc disease Degenerative change at the lower lumbar apophyseal joints with associated grade 1 anterolisthesis at L4-5 Reviewed, dictated and finalized at location B. OM[employer] EXPERIENCE CONSULTANT
== END ==
PROVIDERS: PCP Family Medicine; Visit Provider Family Medicine
DX: M54.50 Low back pain, unspecified (principal); M51.36 Other intervertebral disc degeneration, lumbar region; M43.16 Spondylolisthesis, lumbar region
CPT/HCPCS: 72100

== ENCOUNTER → 2022-05-28 10:57 | Outpatient (CLI) | payer MEDICARE, SELFPAY ==
--- NOTE | ~2022-05-28 | XR_ITS ---
[[id number] ] INDICATION: Right rib pain for one year TECHNIQUE: Frontal projection of the upper right ribs, frontal projection of the lower right ribs, ob lique projection of all the right ribs, frontal inspiratory chest x-ray for interpretation. FINDINGS: There are no displaced rib fractures identified. There are no soft tissue abnormality see n. The lungs are clear. IMPRESSION: 1:No acute displaced rib fractures. Reviewed, dictated and finalized at location A.
== END ==
PROVIDERS: PCP Family Medicine; Visit Provider Family Medicine
DX: R07.81 Pleurodynia (principal)
CPT/HCPCS: 71101

== ENCOUNTER 2022-07-14 14:40 | Outpatient (CLI) | payer MEDICARE, SELFPAY ==
--- NOTE | ~2022-07-14 | MM_ITS ---
EXAMINATION: MM screening [facility] BI w grazyna HISTORY: Screening mammogram TECHNIQUE: Craniocaudal and mediolateral oblique 3-D tomosynthesis images were obtained and synthetic 2-D images were generated. CAD analysis was submitted and interpreted. COMPARISON: 04/15/2021, 03/20/2021, 10/02/2019 BREAST PARENCHYMAL COMPOSITION: There are scattered areas of fibroglandular density. FINDINGS: A chronic seroma is seen at the site of prior right breast implant. There is no suspicious mass, calcification, or architectural distortion to suggest malignancy in either breast. There has be en no suspicious interval change. IMPRESSION: 1. No mammographic evidence of malignancy. 2. Recommend routine screening mammography in one year. BI-RADS Category 2: Benign finding(s). Reviewed, dictated and finalized at location A.
== END 2022-07-14 14:41 | disposition home or self-care (01) ==
PROVIDERS: PCP Family Medicine; Visit Provider Obstetrics & Gynecology
DX: Z12.31 Encounter for screening mammogram for malignant neoplasm of breast (principal)
CPT/HCPCS: 77063; 77067

== ENCOUNTER 2024-01-12 08:58 | Outpatient (CLI) | payer MEDICARE, SELFPAY ==
--- NOTE | ~2024-01-12 | MM_ITS ---
EXAMINATION: MM screening [facility] w grazyna HISTORY: Screening TECHNIQUE: Craniocaudal and mediolateral oblique 3-D tomosynthesis images were obtained and synthetic 2-D images were generated. CAD analysis was submitted and interpreted. COMPARISON: Comparison to multiple prior studies sequentially, with oldest reviewed study dated 01/2017. BREAST PARENCHYMAL COMPOSITION: Not dense: There are scattered areas of fibroglandular density. FINDINGS: Bilateral breast asymmetries and architectural distortion are stable, consistent with previ ous explantation of implants. Densely calcified mass posteriorly, likely sequela of prior implant rup ture. There is no evidence of suspicious mass, calcification, or architectural distortion to suggest malignancy in either breast. There has been no suspicious interval change. IMPRESSION: 1. No mammographic evidence of malignancy. 2. Recommend routine screening mammography in one year. BI-RADS Category 2: Benign finding(s). Reviewed, dictated and finalized at location A. S LOADER
== END 2024-01-12 08:59 | disposition home or self-care (01) ==
LOC: ANHIMG 09:04
PROVIDERS: PCP Family Medicine; Visit Provider Obstetrics & Gynecology
DX: Z12.31 Encounter for screening mammogram for malignant neoplasm of breast (principal)
CPT/HCPCS: 77063; 77067

== ENCOUNTER 2024-03-29 11:06 | Outpatient (CLI) | payer MEDICARE, SELFPAY ==
--- NOTE | ~2024-03-29 | XR_ITS ---
Right elbow Technique: AP, oblique, and lateral views were obtained. Clinical History: Pain Findings: No acute fracture or dislocation is seen. Osseous alignment is anatomic. Joint spaces are p reserved. There is no displacement of the fat pads, and soft tissues are unremarkable. Impression: Unremarkable radiographs. Reviewed, dictated and finalized at location . Impression: Unremarkable radiographs.
== END 2024-03-29 11:07 ==
LOC: MICIMG 11:08
PROVIDERS: PCP Family Medicine; Visit Provider Family Medicine
DX: M25.521 Pain in right elbow (principal)
CPT/HCPCS: 73080

== ENCOUNTER 2025-08-24 10:01 | Outpatient (CLI) | payer MEDICARE, SELFPAY ==
--- NOTE | ~2025-08-24 | MM_ITS ---
EXAMINATION: MM screening brooke BI w grazyna HISTORY: Screening TECHNIQUE: Craniocaudal and mediolateral oblique 3-D tomosynthesis images were obtained and synthetic 2-D images were generated. CAD analysis was submitted and interpreted. COMPARISON: 07/14/2022 BREAST PARENCHYMAL COMPOSITION: There are scattered areas of fibroglandular density. FINDINGS: There is no evidence of suspicious mass, calcification, or architectural distortion to suggest malignancy. IMPRESSION: 1. Asymmetry in the upright breast, middle depth, seen in the right MLO projection. The study is incomplete. A diagnostic mammogram and a diagnostic ultrasound are recommended. 2. No mammographic evidence for malignancy in the left breast. BI-RADS 0: Incomplete-Need additional imaging evaluation. Reviewed, dictated and finalized at location Q. IMPRESSION: 1. Asymmetry in the upright breast, middle depth, seen in the right MLO project ion. The study is incomplete. A diagnostic mammogram and a diagnostic ultrasoun d are recommended. 2. No mammographic evidence for malignancy in the left breast. BI-RADS 0: Incomplete-Need additional imaging evaluation.
== END 2025-08-24 10:02 | disposition home or self-care (01) ==
LOC: ANHFOHIMG 10:03
PROVIDERS: PCP Family Medicine; Visit Provider Family Medicine
DX: Z12.31 Encounter for screening mammogram for malignant neoplasm of breast (principal); R92.8 Other abnormal and inconclusive findings on diagnostic imaging of breast
CPT/HCPCS: 77063; 77067

== ENCOUNTER 2025-08-25 18:21 | Emergency (ER) | payer MEDICARE, SELFPAY ==
--- OUTSIDE RECORDS SUMMARY | 2025-08-25 18:23 | XMS_ITS | Encounter Summary ---
Author Organization [employer] Address [address] [place] [address] Care Team Providers Care Weir Fisherman Name Role Phone Brock Acosta MD Primary Care Provider [phone] Encounter Details Date Type Department Care Team (Late st Contact Info) Description 02/12/2005 Outpatient Historical [facility], [address] Gómez Smyth MD NO ADDRESS ON FILE Social History Tobacco Use Types Packs/Day Years Used Date Smoking Tobacco: Never Assessed Comments Unknown Sex and Gender Information Value Date Recorded Sex Assigned at Not on file Legal Sex Female 4:19 AM RESISTOR WINDER Gender Identity Not on file Sexual Orientation Not on file documented as of this encounter Plan of Treatment Not on file documented as of this encounter Procedures Procedure Name Priority Date/Time Associated Diagnosis Comments HIGH SENSITIVITY CRP Routine 02/16/2005 4:26 PM CDT CBC WITH DIFFERENTIAL Routine 02/12/2005 9:30 AM RESISTOR WINDER CBC WITH DIFFERENTIAL Routine 02/12/2005 9:30 AM RESISTOR WINDER URINALYSIS W/REFLEX MICROSCOPIC Routine 02/12/2005 9:30 AM RESISTOR WINDER C-REACTIVE PROTEIN Routine 02/12/2005 9: 30 AM RESISTOR WINDER TSH Routine 02/12/2005 9:30 AM RESISTOR WINDER LIPID PANEL Routine 02/12/2005 9:30 AM RESISTOR WINDER COMPREHENSIVE METABOLIC PANEL Routine 02/12/2005 9:30 AM RESISTOR WINDER documented in this encounter Results * HIGH SENSITIVITY CRP (02/16/2005 4:26 PM CDT) CRP, HIGHLY SENSITIVE 0.8 mg/L INTERFACE SYSTEM Comment: Note: Effective 04/22/04 Cardio CRP (highly sensitive) will be perform ed at [facility]. CARDIOVASCULAR RISK ACCORDING TO AHA/CDC GUIDELINES FOR AGES >17 YEARS: Cardio CRP RISK ACCORDING TO AHA/CDC GUIDELINES <1.0 mg/L Low Cardiovascular Risk 1.0 - 3.0 mg/L Average Cardiovascular Risk 3.1 - 10.0 mg/L High Cardiovascular Risk > 10.0 mg/L Persistent Elevations may represent Non-Cardiovascular Inflammation Previous specimen used; approved by floor. 02/16/2005 4:26 PM CDT Gómez Smyth MD CHEMISTRY ORDERABLES Final Re sult Performing Organization Address City/[facility] Co de Phone Number INTERFACE SYSTEM Refer to clinic/hospital department * (ABNORMAL) URINALYSIS (02/12/2005 9:30 AM RESISTOR WINDER) COLOR UA Yellow INTERFACE SYSTEM CLARITY UA Slt. Cloudy(A) Clear INTERFACE SYSTEM SPECIFIC GRAVITY UA 1.020 1.001 - 1.035 INTERFACE SYSTEM PH UA 6.5 5.0 - 8.0 INTERFACE SYSTEM LEUKOCYTE ESTERASE UA 1+(A) Negative INTERFACE SYSTEM NITRITE UA Negative Negative INTERFACE SYSTEM PROTEIN UA Negative Negative INTERFACE SYSTEM GLUCOSE UA Negative Negative INTERFACE SYSTEM KETONES UA Negative Negative INTERFACE SYSTEM UROBILINOGEN UA <1 <1 EU INTE RFACE SYSTEM BILIRUBIN UA Negative Negative INTERFA CE SYSTEM BLOOD UA Negative Negative INTERFACE SYSTEM WBC UA 6(H) 0 - 5 /HPF INTERFACE SYSTEM RBC UA 1 0 - 4 /HPF INTERFACE SYSTEM EPITHELIAL CELLS, URINE Many /HPF INTERFACE SYSTEM 02/12/2005 9:30 AM RESISTOR WINDER Gómez Smyth MD URINE ORDERABLES Final Result Performing Organization Address [facility] Co de Phone Number INTERFACE SYSTEM Refer to clinic/hospital department * C-REACTIVE PROTEIN (02/12/2005 9:30 AM RESISTOR WINDER) CRP <0.5 0.0 - 0.8 mg/dL INTERFACE SYSTEM 02/12/2005 9:30 AM RESISTOR WINDER Gómez Smyth MD CHEMISTRY ORDERABLES Final Re sult Performing Organization Address City/[facility]/ZIP Co de Phone Number INTERFACE SYSTEM Refer to clinic/hospital department * (ABNORMAL) LIPID PANEL (02/12/2005 9:30 AM RESISTOR WINDER) LIPID PANEL COMMENT See below INTERFACE SYSTEM Comment: Adult ATP III Classifications: Cholesterol (mg/dL) Triglyceride (mg/dL) Desirable <200 Normal <150 Borderline 200 - 239 Borderline High 150 - 199 High >=240 High 200 - 499 Very High >=500 HDL Cholesterol (mg/dL) LDL (mg/dL) Low (increased risk) <40 Optimal <100 High (reduced risk) >=60 Near or above optimal 100 - 129 Borderline 130 - 159 High 160 - 189 Very High >=190 LDL calculation is not accurate if Triglycerides are greater than 400 mg /dL Pediatric NCEP Classifications: Cholesterol(<20 years),(mg/dL) Triglyceride Desirable <170 Pediatric classification Borderline 170 - 199 not defined. High >=200 HDL (<5 years) LDL (mg/dL) No Reference Range Established Desirable <110 Borderline 110 - 129 High >=130 CHOLESTEROL 194 100 - 199 mg/dL INTERFACE SYSTEM TRIGLYCERIDE 69 10 - 149 mg/dL INTERFACE SYSTEM HDL 80(H) 40 - 59 mg/dL INTERFACE SYSTEM LDL CALCULATED 100(H) <=99 mg/dL INTERFACE SYSTEM CHOL/HDL RATIO 2.4 2.0 - 5.0 INTER FACE SYSTEM Comment:See interpretive lan a section for risk classifications. 02/12/2005 9:30 AM RESISTOR WINDER Gómez Smyth MD CHEMISTRY ORDERABLES Final Re sult Performing Organization Address City/[facility] Co de Phone Number INTERFACE SYSTEM Refer to clinic/hospital department * (ABNORMAL) COMPREHENSIVE METABOLIC PANEL (02/12/2005 9:30 AM RESISTOR WINDER) SODIUM 141 135 - 145 mmol/L INTERFACE SYSTEM POTASSIUM 3.9 3.5 - 4.9 mmol/L INTERFACE SYSTEM CHLORIDE 104 96 - 108 mmol/L INTERFACE SYSTEM GLUCOSE 88 65 - 109 mg/dL INTERFACE SYSTEM CREATININE 0.7 0.4 - 1.2 mg/dL INTERFACE SYSTEM CALCIUM 9.5 8.6 - 10.2 mg/dL INTERFACE SYSTEM AST 32 12 - 32 U/L INTERFACE SYSTEM ALKALINE PHOSPHATASE 60 35 - 104 U/L INTERFACE SYSTEM BUN 16 6 - 20 mg/dL INTERFACE SYSTEM BILIRUBIN TOTAL 1.0 0.2 - 1.0 mg/dL INTERFACE SYSTEM ALBUMIN 4.5 3.4 - 4.8 g/dL INTERFACE SYSTEM TOTAL PROTEIN 7.6 6.3 - 8.6 g/dL INTERFACE SYSTEM ALT 47(H) 0 - 31 U/L INTERFACE SYSTEM CO2 28 22 - 30 mmol/L INTERFACE SYSTEM 02/12/2005 9:30 AM RESISTOR WINDER Gómez Smyth MD CHEMISTRY ORDERABLES Final Re sult Performing Organization Address [facility] de Phone Number INTERFACE SYSTEM Refer to clinic/hospital department * (ABNORMAL) CBC WITH DIFFERENTIAL (02/12/2005 9:30 AM RESISTOR WINDER) Pathologist [facility] NEUTROPHILS 48 45 - 70 % INTERFAC E SYSTEM LYMPHOCYTES 36 16 - 45 % INTERFAC E SYSTEM MONOCYTES 14(H) 3 - 13 % INTERFACE SYSTEM EOSINOPHILS 1 0 - 7 % INTERFAC E SYSTEM BASOPHILS 1 0 - 2 % INTERFACE SYSTEM NEUTROPHIL ABSOLUTE 2.65 1.90 - 7.00 K/uL INTERFACE SYSTEM LYMPHOCYTE ABSOLUTE 1.97 0.70 - 4.50 K/uL INTERFACE SYSTEM MONOCYTE ABSOLUTE 0.77 0.10 - 1.30 K/uL INTERFACE SYSTEM EOSINOPHIL ABSOLUTE 0.06 0.00 - 0.70 K/uL INTERFACE SYSTEM BASOPHILS ABSOLUTE 0.04 0.00 - 0.20 K/uL INTERFACE SYSTEM 02/12/2005 9:30 AM RESISTOR WINDER Gómez Smyth MD HEMATOLOGY ORDERABLES Final R esult Performing Organization Address [facility]/ZIP Co de Phone Number INTERFACE SYSTEM Refer to clinic/hospital department * CBC WITH DIFFERENTIAL (02/12/2005 9:30 AM RESISTOR WINDER) WBC 5.5 4.0 - 9.8 K/uL INTERFACE SYSTEM RBC 4.55 3.90 - 4.90 M/uL INTERFACE SYSTEM HEMOGLOBIN 14.4 11.8 - 14.8 g/dL INTERFACE SYSTEM HEMATOCRIT 42.8 35.5 - 44.0 % INTERFACE SYSTEM MCV 94.1 82.0 - 99.0 fL INTERFACE SYSTEM MCH 31.6 27.2 - 32.6 pg INTERFACE SYSTEM MCHC 33.6 31.5 - 35.5 % INTERFACE SYSTEM RDW 13.0 11.5 - 14.5 % INTERFACE SYSTEM RDW-STDEV 44.8 37.1 - 48.7 fL INTERFACE SYSTEM PLATELETS 295 140 - 350 K/uL INTERFACE SYSTEM MPV 11.1 9.3 - 12.4 fL INTERFACE SYSTEM 02/12/2005 9:30 AM RESISTOR WINDER us Gómez Smyth MD HEMATOLOGY ORDERABLES Final R esult Performing Organization Address [facility] Phone Number INTERFACE SYSTEM Refer to clinic/hospital department * (ABNORMAL) TSH (02/12/2005 9:30 AM RESISTOR WINDER) TSH 0.03(L) 0.27 - 4.20 uU/mL INTERFACE SYSTEM 02/12/2005 9:30 AM RESISTOR WINDER Gómez Smyth MD CHEMISTRY ORDERABLES Final Re sult Performing Organization Address [facility] Phone Number INTERFACE SYSTEM Refer to clinic/hospital department documented in this encounter Visit Diagnoses Not on filedocumented in this encounter Care Teams Weir Fisherman Relationship Specialty Start Date End Date Brock Acosta MD PCP - General 11/05/15 documented as of this encounter
--- OUTSIDE RECORDS SUMMARY | 2025-08-25 18:23 | XMS_ITS | Encounter Summary ---
Author Organization [facility] Address [address] [place] [address] Care Team Providers Care Forensic Engineer Name Role Phone Brock Acosta MD Primary Care Provider Encounter Details Date Type Department Care Team (Late st Contact Info) Description 01/17/2020 Lab Requisition [facility] [address] [place] [address] Chuck Marte MD [address] [place] [address] Social History Tobacco Use Types Packs/Day Years Used Date Smoking Tobacco: Never Assessed Comments Unknown Sex and Gender Information Value Date Recorded Sex Assigned at Not on file Legal Sex Female 12:11 PM EGG CANDLER Gender Identity Not on file Sexual Orientation Not on file documented as of this encounter Plan of Treatment Not on file documented as of this encounter Procedures Procedure Name Priority Date/Time Associated Diagnosis Comments DERMATOPATHOLOGY Routine 01/16/2020 12:0 0 AM EGG CANDLER documented in this encounter Results * DERMATOPATHOLOGY (01/16/2020 12:00 AM EGG CANDLER) Case Report Dermatopathology Report Case: [id number] Authorizing Provider: Chuck Marte MD Collected: 01/16/2020 12:00 AM Ordering Location: [facility] Received: 01/17/2020 01:24 PM Pathologist: Willa Byrd MD Specimen: Skin, left posterior lateral back 0 2:10 PM [facility] Final Diagnosis Specimen A. 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 0 2:10 PM [facility] Gross Description Specimen A: Received is one formalin filled container labeled with the patient's name and designated left posterior lateral back. The specimen consists of a shave biopsy measuring [id number], bisected. Jar 0. 0 2:10 PM [facility] Microscopic Description Specimen A. SKIN, left posterior lateral back: Sections show papillomatosis with overlying parakeratosis. Some of the cells within the granular layer show coarsened keratohyalin granules. Within the dermis, dilated vessels, and a patchy lymphocytic infiltrate are present. 0 2:10 PM [facility] Disclaimer An external and internal positive and negative controls are appropriate for the histochemical, immunohistochemical and immunofluorescence stain(s) in this case (if any), except where stated explicitly. The performance characteristics of the stain(s) cited in this report were developed and its performance characteristic determined by the Dermatopathology Laboratory at [facility], directed by Dr. Amanda Sevilla. These tests need not be, and therefore are not, approved by the [place] Food and Drug Administration. The tests are used for clinical purposes. Billing Codes Specimen Charges Stain Charges 94196 1 0 2:10 PM [facility] Embedded Images 0 2:10 PM [facility] Pathology/Cytolog y TISSUE SPECIMEN FROM SKIN / Unknown 01/16/2020 01/17/2020 1:24 PM [facility] us Chuck Marte MD LAB - PATHOLOGY/CYTOLOGY ORD ERABLES Final Result DERMATOPATHOLOGY LABORATORY [facility] - Department of Dermatology [address] [place] [address], [facility] [phone] documented in this encounter Visit Diagnoses Not on filedocumented in this encounter Care Teams Forensic Engineer Relationship Specialty Start Date End Date Brock Acosta MD [facility] [facility] [address] [place] [id number] PCP - General 06/19/21 documented as of this encounter
--- OUTSIDE RECORDS SUMMARY | 2025-08-25 18:23 | XMS_ITS | Encounter Summary ---
Author Organization [email or web address] Address [address] Attn: Epic Prelude ADT [place] [address] Care Team Providers Care Administrative Judge Name Role Phone Brock Acosta MD Primary Care Provider [phone] Encounter Details Date Type Department Care Team (Late st Contact Info) Description 01/18/1997 Outpatient Historical Conversion, History Gómez Smyth MD NO ADDRESS ON FILE Social History Tobacco Use Types Packs/Day Years Used Date Smoking Tobacco: Never Assessed Comments Unknown Sex and Gender Information Value Date Recorded Sex Assigned at Not on file Legal Sex Female 4:19 AM BINDERY SUPERVISOR Gender Identity Not on file Sexual Orientation Not on file documented as of this encounter Plan of Treatment Not on file documented as of this encounter Visit Diagnoses Not on filedocumented in this encounter Care Teams Administrative Judge Relationship Specialty Start Date End Date Brock Acosta MD PCP - General 11/05/15 documented as of this encounter
--- OUTSIDE RECORDS SUMMARY | 2025-08-25 18:23 | XMS_ITS | Encounter Summary ---
Author Organization [employer] Address [address] [place] [address] Care Team Providers Care Training Program Manager Name Role Phone Brock Acosta MD Primary Care Provider [phone] Encounter Details Date Type Department Care Team (Late st Contact Info) Description 06/11/2005 Outpatient Historical [facility], [address] Gómez Smyth MD NO ADDRESS ON FILE Social History Tobacco Use Types Packs/Day Years Used Date Smoking Tobacco: Never Assessed Comments Unknown Sex and Gender Information Value Date Recorded Sex Assigned at Not on file Legal Sex Female 4:19 AM FILM CUTTER Gender Identity Not on file Sexual Orientation Not on file documented as of this encounter Plan of Treatment Not on file documented as of this encounter Procedures Procedure Name Priority Date/Time Associated Diagnosis Comments HEPATIC FUNCTION PANEL Routine 06/11/2005 11:45 AM CDT LIPID PANEL Routine 06/11/2005 11:45 AM CDT documented in this encounter Results * (ABNORMAL) HEPATIC FUNCTION PANEL (06/11/2005 11:45 AM CDT) AST 32 12 - 32 U/L INTERFACE SYSTEM ALKALINE PHOSPHATASE 59 35 - 104 U/L INTERFACE SYSTEM BILIRUBIN TOTAL 1.7(H) 0.2 - 1.0 mg/dL INTERFACE SYSTEM ALBUMIN 4.4 3.4 - 4.8 g/dL INTERFACE SYSTEM TOTAL PROTEIN 7.5 6.3 - 8.6 g/dL INTERFACE SYSTEM ALT 61(H) 0 - 31 U/L INTERFACE SYSTEM BILIRUBIN DIRECT 0.3 0.0 - 0.3 mg/dL INTERFACE SYSTEM 06/11/2005 11:4 5 AM CDT Gómez Smyth MD CHEMISTRY ORDERABLES Final Re sult Performing Organization Address City/[facility] Co de Phone Number INTERFACE SYSTEM Refer to clinic/hospital department * (ABNORMAL) LIPID PANEL (06/11/2005 11:45 AM CDT) CHOLESTEROL 157 100 - 199 mg/dL INTERFACE SYSTEM TRIGLYCERIDE 75 10 - 149 mg/dL INTERFACE SYSTEM HDL 78(H) 40 - 59 mg/dL INTERFACE SYSTEM LDL CALCULATED 64 <=99 mg/dL INTERFACE SYSTEM CHOL/HDL RATIO 2.0 2.0 - 5.0 INTER FACE SYSTEM Comment:See interpretive lan a section for risk classifications. LIPID PANEL COMMENT See below INTERFACE SYSTEM [...] <110 Borderline 110 - 129 High >=130 06/11/2005 11:4 5 AM CDT Gómez Smyth MD CHEMISTRY ORDERABLES Final Re sult Performing Organization Address City/[facility]/ZIP Co de Phone Number INTERFACE SYSTEM Refer to clinic/hospital department documented in this encounter Visit Diagnoses Not on filedocumented in this encounter Care Teams Training Program Manager Relationship Specialty Start Date End Date Dave, Brock P, MD PCP - General 11/05/15 documented as of this encounter
--- OUTSIDE RECORDS SUMMARY | 2025-08-25 18:23 | XMS_ITS | Encounter Summary ---
Author Organization [employer] Address [address] [place] [address] Care Team Providers Care Curator Of Collections Name Role Phone Brock Acosta MD Primary Care Provider [phone] Encounter Details Date Type Department Care Team (Late st Contact Info) Description 04/24/2005 Outpatient Historical [facility] Gómez Smyth MD NO ADDRESS ON FILE Social History Tobacco Use Types Packs/Day Years Used Date Smoking Tobacco: Never Assessed Comments Unknown Sex and Gender Information Value Date Recorded Sex Assigned at Not on file Legal Sex Female 4:19 AM ATMOSPHERIC PHYSICS PROFESSOR Gender Identity Not on file Sexual Orientation Not on file documented as of this encounter Plan of Treatment Not on file documented as of this encounter Visit Diagnoses Not on filedocumented in this encounter Care Teams Curator Of Collections Relationship Specialty Start Date End Date Brock Acosta MD PCP - General 11/05/15 documented as of this encounter
--- OUTSIDE RECORDS SUMMARY | 2025-08-25 18:23 | XMS_ITS | Clinical Summary ---
Author Organization [facility] Address [address] [place] [address] Care Team Providers Care Ultrasound Technol Name Role Phone Brock Acosta MD Primary Care Provider Source Comments [facility],non-owned Affiliates and Associated Physician Practices is amultiple site organization consisting of ambulatory clinics and hospital sitesin [place], [place], [place] and [place]. This disclosure is being madepursuant to the Care Everywhere program and may not contain all information available regarding this patient. Last updated 18.[facility] Social History Tobacco Use Types Packs/Day Years Used Date Smoking Tobacco: Never Assessed Comments Unknown Sex and Gender Information Value Date Recorded Sex Assigned at Not on file Legal Sex Female 12:11 PM SCCM ADMINISTRATOR Gender Identity Not on file Sexual Orientation Not on file Plan of Treatment Health Maintenance Due Date Last Done Comments BONE DENSITY TESTING 1945 DTAP/TDAP/TD VACCINES (1 - Tdap) 1964 PNEUMOCOCCAL VACCINE 50+ (1 of 1 - PCV) 1995 ZOSTER VACCINE (1 of 2) 1995 Respiratory Syncytial Virus (RSV) Vaccine Pt: or over 60 yrs (1 - 1-dose 75+ series) 2020 DEPRESSION SCREENING 11/15/2024 COVID-19 VACCINE (1 - 2023-2 5 season) 2025 INFLUENZA VACCINE (#1) 2025 HEPATITIS B VACCINE Aged Out No longe r eligible based on patient's age to complete this topic HIB VACCINE Aged Out No longer eligi ble based on patient's age to complete this topic HPV VACCINE Aged Out No longer eligi ble based on patient's age to complete this topic MENINGOCOCCAL (Group B) VACC INE SHARED DECISION-MAKING Aged Out No longer eligibl e based on patient's age to complete this topic MENINGOCOCCAL GROUPS A/C/Y/W VACCINE Aged Out No longer eligible b ased on patient's age to [place] [address] [employer] Care Teams Ultrasound Technol Relationship Specialty Start Date End Date Brock Acosta MD [address] [place] [address] PCP - General 06/19/21
--- OUTSIDE RECORDS SUMMARY | 2025-08-25 18:23 | XMS_ITS | Clinical Summary ---
Author Organization [facility] Address [address] [place] [address] Care Team Providers Care Bath Attendant Name Role Phone Brock Acosta MD Primary Care Provider [phone] Social History Tobacco Use Types Packs/Day Years Used Date Smoking Tobacco: Never Assessed Comments Unknown Sex and Gender Information Value Date Recorded Sex Assigned at Not on file Legal Sex Female 9:22 PM CDT Gender Identity Not on file Sexual Orientation Not on file Plan of Treatment Health Maintenance Due Date Last Done Comments DTaP, Tdap and Td Vaccines ( 1 - Tdap) 1964 Pneumococcal Vaccine: 50+ Ye ars (1 of 1 - PCV) 1995 Zoster Vaccines (1 of 2) 1995 Dexa Scan (General) 2010 RSV Immunization or 60+ Years (1 - 1-dose 75+ series) 2020 COVID-19 Vaccine (1 - 2023-2 5 season) 2025 Influenza Adult (#1) 2025 Meningococcal B Vaccine Aged Out No l onger eligible based on patient's age to complete this topic Meningococcal Vaccine Aged Out No dinora lori eligible based on patient's age to complete this topic RSV Immunizations Under 20 Months Aged Out No longer eligible based on patient's age to complete this topic Care Teams Bath Attendant Relationship Specialty Start Date End Date Brock Acosta MD PCP - General 06/24/11
--- OUTSIDE RECORDS SUMMARY | 2025-08-25 18:23 | XMS_ITS | Encounter Summary ---
Author Organization [facility] Care Team Providers Care Retina Subspecialist Name Role Phone Brock Acosta MD Primary Care Provider [phone] Ramez Balderrama MD Unavailable [phone] Mandeep Bravo MD Unavailable [phone] Edis Levine MD Primary Care Provider [phone] Brock Acosta MD Primary Care Provider [phone] Encounter Details Date Type Department Care Team (Latest Contact Info) Description 11/11/2017 Orders Only [facility]IN[facility] ProviderMena MD [address] [place], [place] [id number] Social History Tobacco Use Types Packs/Day Years Used Date Smoking Tobacco: Never Assessed Comments Unknown Sex and Gender Information Value Date Recorded Sex Assigned at Not on file Legal Sex Female 10:24 AM PERFORMANCE MANAGER Gender Identity Not on file Sexual Orientation Not on file documented as of this encounter Plan of Treatment Not on file documented as of this encounter Procedures Procedure Name Priority Date/Time Associated Diagnosis Comments PROCEDURE - RESULT 11/16/2017 12 :00 AM PERFORMANCE MANAGER documented in this encounter Results * PROCEDURE - RESULT (11/16/2017 12:00 AM PERFORMANCE MANAGER) Narrative 11/16/2017 12:00 AM PERFORMANCE MANAGER Ordered by an unspecified provider. Historical Provider Final Res ult documented in this encounter Visit Diagnoses Not on filedocumented in this encounter Care Teams Retina Subspecialist Relationship Specialty Start Date End Date Brock Acosta MD PCP - General Family Medicine 02/09/19 01/07/23 Edis Levine MD [address] [place] [address] PCP - General Family Medicine 01/08/23 04/02/25 Brock Acosta MD [address] [place] [address] PCP - General Family Medicine 06/11/25 Ramez Balderrama MD [address] [place] [address] Referring Physician Gastroenterology 09/06/19 Mandeep Bravo MD [address] [place] [address] Referring Physician Ophthalmology 09/06/19 documented as of this encounter
--- OUTSIDE RECORDS SUMMARY | 2025-08-25 18:23 | XMS_ITS | Encounter Summary ---
Author Organization [employer] Address 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 Gender Identity Not on file Sexual Orientation Not on file documented as of this encounter Plan of Treatment Not on file documented as of this encounter Procedures Procedure Name Priority Date/Time Associated Diagnosis Comments HEPATIC FUNCTION PANEL Routine 04/24/2005 9:15 AM CDT LIPID PANEL Routine 04/24/2005 9:15 AM CDT documented in this encounter Results * (ABNORMAL) HEPATIC FUNCTION PANEL (04/24/2005 9:15 AM CDT) AST 36(H) 12 - 32 U/L INTERFACE SYSTEM ALKALINE PHOSPHATASE 62 35 - 104 U/L INTERFACE SYSTEM BILIRUBIN TOTAL 1.2(H) 0.2 - 1.0 mg/dL INTERFACE SYSTEM ALBUMIN 4.3 3.4 - 4.8 g/dL INTERFACE SYSTEM TOTAL PROTEIN 7.3 6.3 - 8.6 g/dL INTERFACE SYSTEM ALT 52(H) 0 - 31 U/L INTERFACE SYSTEM BILIRUBIN DIRECT 0.3 0.0 - 0.3 mg/dL INTERFACE SYSTEM 04/24/2005 9:15 AM CDT Gómez Smyth MD CHEMISTRY ORDERABLES Final Re sult INTERFACE SYSTEM Refer to clinic/hospital department * (ABNORMAL) LIPID PANEL (04/24/2005 9:15 AM CDT) CHOLESTEROL 145 100 - 199 mg/dL INTERFACE SYSTEM TRIGLYCERIDE 57 10 - 149 mg/dL INTERFACE SYSTEM HDL 75(H) 40 - 59 mg/dL INTERFACE SYSTEM LDL CALCULATED 59 <=99 mg/dL INTERFACE SYSTEM CHOL/HDL RATIO 1.9(L) 2.0 - 5.0 INTER FACE SYSTEM Comment:See [...] <110 Borderline 110 - 129 High >=130 04/24/2005 9:15 AM CDT Gómez Smyth MD CHEMISTRY ORDERABLES Final Re sult INTERFACE SYSTEM Refer to clinic/hospital department documented in this encounter Visit Diagnoses Not on filedocumented in this encounter Care Teams Airplane Patrol Pilot Relationship Specialty Start Date End Date Brock Acosta MD PCP - General 11/05/15 documented as of this encounter
--- OUTSIDE RECORDS SUMMARY | 2025-08-25 18:23 | XMS_ITS | Encounter Summary ---
Author Organization [facility] Address [address] [facility] Attn: Epic Prelude ADT [place] [address] Care Team Providers Care Sales Promotion Representative Name Role Phone Brock Acosta MD Primary Care Provider [phone] Encounter Details Date Type Department Care Team (Late st Contact Info) Description 07/17/1997 Outpatient Historical Conversion, History Gómez Smyth MD NO ADDRESS ON FILE Social History Tobacco Use Types Packs/Day Years Used Date Smoking Tobacco: Never Assessed Comments Unknown Sex and Gender Information Value Date Recorded Sex Assigned at Not on file 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
--- OUTSIDE RECORDS SUMMARY | 2025-08-25 18:23 | XMS_ITS | Encounter Summary ---
Author Organization [facility] Address [address] [facility] Attn: Epic Prelude ADT [place] [address] Care Team Providers Care Email Designer Name Role Phone Brock Acosta MD Primary Care Provider [phone] Encounter Details Date Type Department Care Team (Late st Contact Info) Description 08/08/1996 Outpatient Historical Gómez Smyth MD NO ADDRESS ON FILE Social History Tobacco Use Types Packs/Day Years Used Date Smoking Tobacco: Never Assessed Comments Unknown Sex and Gender Information Value Date Recorded Sex Assigned at Not on file Legal Sex Female 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
--- OUTSIDE RECORDS SUMMARY | 2025-08-25 18:23 | XMS_ITS | Clinical Summary ---
Author Organization [facility] [address] [facility] Address [address] [place] [address] Care Team Providers Care Microfilm Duplicating Unit Supervisor Name Role Phone Ramez Balderrama MD Unavailable [phone] Mandeep Bravo MD Unavailable [phone] Brock Acosta MD Primary Care Provider [phone] Allergies Active Allergy Reactions Criticality Noted Date Comments Penicillins Rash Medium 11/07/2009 Medications coenzyme Q10 10 mg capsule Take 1 capsule (10 mg total) by mouth daily Active latanoprost (XALATAN) 0.005 % ophthalmic solution 1 drop nightly 3 Active timolol (TIMOPTIC) 0.5 % ophthalmic solution 1 drop 2 (two) times a day 3 Active levothyroxine (SYNTHROID) 100 mcg tabletIndications:A cquired hypothyroidism Take 1 tablet (100 mcg total) by mouth daily 90 tablet 4 Active cloNIDine (CATAPRES) 0.1 mg tabletIndications:E ssential hypertension TAKE 1 TABLET BY MOUTH 3 TIMES A DAY. 270 tablet 4 Active omeprazole (PriLOSEC) 40 mg capsule TAKE 1 CAPSULE BY MOUTH TWICE A DAY 180 capsule 4 Active famotidine (PEPCID) 40 mg tabletIndications:G astroesophageal reflux disease without esophagitis TAKE 1 TABLET BY MOUTH EVERY DAY 90 tablet 4 Active losartan (COZAAR) 50 mg tabletIndications:E ssential hypertension TAKE 1 TABLET BY MOUTH EVERY DAY 100 tablet 4 Active gabapentin (NEURONTIN) 100 mg capsule TAKE 1 CAPSULE BY MOUTH THREE TIMES A DAY 90 capsule 4 Active metoprolol XL (TOPROL-XL) 25 mg extended release tabletIndications:E ssential hypertension TAKE 1 TABLET (25 MG TOTAL) BY MOUTH DAILY. 30 tablet 4 Active pravastatin (PRAVACHOL) 40 mg tabletIndications:M ixed hyperlipidemia TAKE 1 TABLET BY MOUTH EVERY DAY 100 tablet 1 4 Active Active Problems Problem Noted Date Diagnosed Date Trochanteric bursitis of right hip 07/14/2023 Trigeminal neuralgia 01/20/2023 Intrinsic eczema 12/15/2018 Mixed hyperlipidemia 05/19/2017 Assessment & Plan (06/01/2019 12:06 PM CDT): Well controlled on current regimen, no rx changes needed. Continue lifestyle modifications GERD (gastroesophageal reflux disease) 6 HTN (hypertension) 04/22/2016 Assessment & Plan (06/01/2019 12:06 PM CDT): Well controlled on current regimen, no rx changes needed. Continue lifestyle modifications Hypothyroidism 04/22/2016 Assessment & Plan (09/12/2019 10:47 PM CDT): We will increase synthroid to 100mcg and recheck in 4 weeks Assessment & Plan (06/01/2019 12:06 PM CDT): Well controlled on current regimen, no rx changes needed. Continue lifestyle modifications Encounters Date Type Department Care Team Description 08/02/2025 Telephone [facility] Accountable Care Organization [address] [place] [address] Elizabeth Tyson MA Successful Phone Call ([facility]) 06/11/2025 8:14 AM CDT - 06/11/2025 11:59 PM CDT Hospital Encounter [facility] Diagnostic Imaging [address] [place] [id number] Procedure and treatment not carried out because of other contraindication Discharge Disposition: Discharge to home or self care from Last 3 Months Immunizations Immunization Administration Dates Next Due Influenza, Quad, Adjuvantate d, Intramuscular 09/16/2022,09/29/2021 Influenza, Quadrivalent, Hig h Dose, Preservative Free, Intrr 09/21/2023,08/30/2020 Influenza, Trivalent, Adjuva nted, Intramuscular 09/05/2019 Influenza, Trivalent, High D ose, Split, Preservative Free, Intramuscular 09/27/2018,09/08/2017,08/18/2015 Pneumococcal Conjugate PCV 13 09/10/2016 Pneumococcal Polysaccharide PPV23 09/06/2019 Td, adsorbed 06/11/2003 Tdap 04/13/2023 ZOSTER Recombinant 04/13/2023 Surgical History Surgery Date Site/Laterality Comments CHOLECYSTECTOMY FLUORO GUIDED INJECTION SHOULDER RIGHT 06/11/2020 Ri ght LITHOTRIPSY Medical History Medical History Date Comments GERD (gastroesophageal reflux disease) Thyroid disease Hyperlipidemia Depression Hypertension Kidney stone Family History Medical History Relation Name Comments Heart disease Brother 1 Hyperlipidemia Brother 1 Stroke Brother 1 Heart disease Brother 2 Hyperlipidemia Brother 2 Heart disease Brother 3 Hyperlipidemia Brother 3 Heart disease Brother 4 Hyperlipidemia Brother 4 Cancer Father Heart disease Father Hyperlipidemia Father Stroke Father Heart disease Mother Hyperlipidemia Mother Heart disease Sister 1 Hyperlipidemia Sister 1 Heart disease Sister 2 Hyperlipidemia Sister 2 Heart disease Sister 3 Hyperlipidemia Sister 3 Diabetes Son 1 Relation Name Status Comments Brother 1 Brother 2 Brother 3 Brother 4 Alive Father Mother Sister 1 Alive Sister 2 Alive Sister 3 Alive Son 1 Alive Son 2 Alive Social History Tobacco Use Types Packs/Day Years Used Date Smoking Tobacco: Never Passive Smoke Exposure: Never Smokeless Tobacco: Never Tobacco Cessation:Counseling Given: Not Answered Alcohol Use Standard Drinks/Week Comments Not Currently 0 (1 standard drink = 0.6 oz pur e alcohol) Humiliation, Afraid, Rape, and Kick questionnair e Answer Date Recorded Fear of Current or Ex-Partner No Emotionally Abused No 09/06/2019 Physically Abused No 09/06/2019 Sexually Abused No 09/06/2019 Social Connection and Isolation Panel Answer Date Recorded Frequency of Communication w ith Friends and Family More than three times a week 09/06/2019 Frequency of Social Gatherin gs with Friends and Family More than three times a week 09/06/2019 Attends Rastafarian Services More than 4 times per year 09/06/2019 Active Member of Clubs or Organizations Yes 09/06/2019 Attends Club or Organization Meetings More than 4 times per year 09/06/2019 Marital Status 09/06/2019 AUDIT-C Answer Date Recorded Frequency of Alcohol Consumption Not on file 08/25/2022 Q2: How many drinks containi ng alcohol do you have on a typical day when you are drinking? 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 Gender Identity Not on file Sexual Orientation Not on file Occupation Industry Job Start Date Job End Date retired Not on file Not on file Not on file Obstetrics History Para Term AB IAB SAB Ectopic Multiple Livin g Live Births 2 2 Date Outcome GA Total Labor Labor/2nd/3rd Weight Sex Type Anes PTL Mayelin A1 A5 Name Clin Para Para Last Filed Vital Signs Vital Sign Reading Time Taken Comments Blood Pressure 150/80 02/02/2024 8:48 AM CDT Pulse 78 02/02/2024 8:48 AM CDT Temperature 36.1 C (96.9 F) 02/02/2024 8:48 AM CDT Respiratory Rate 16 06/24/2023 12:03 PM CDT Oxygen Saturation 98% 02/02/2024 8:48 AM CDT Inhaled Oxygen Concentration - - Weight 85.5 kg (188 lb 6.4 oz) 02/02/2024 8:48 A M CDT Height 167 cm (5' 5.75) 02/02/2024 8:48 AM CDT Body Mass Index 30.64 02/02/2024 8:48 AM CDT Plan of Treatment Health Maintenance Due Date Last Done Comments Hepatitis B Screening 1963 Osteoporosis Screening-Bone Density Scan 02/11/2022 02/12/2020 Zoster Vaccine (2 of 2) 06/08/2023 04/13/2023 Depression Screening 08/04/2024 08/04/2023, 06/24/2023, 01/20/2023, Additional history exists Fall Risk Assessment 08/04/2024 08/04/2023, 06/24/2023, 01/20/2023, Additional history exists Well Visit 65+ 08/04/2024 08/04/2023, 09/06/2019 Covid-19 Vaccine (5 - 2024-2 6 season) 2025 04/07/2022, 09/03/2021, 01/31/2021, Additional history exists Influenza Vaccine (#1) 2025 , 09/21/2023, 09/16/2022, Additional history exists DTaP/Tdap/Td Vaccine (2 - Td or Tdap) 04/13/2033 04/13/2023, 06/11/2003 Colon Cancer Screening-CT Colonography Discontinued 08/15/2016 Colon Cancer Screening-Colonoscopy Discontinued 08/15/2016 Colon Cancer Screening-DNA Stool Discontinued 08/15/20 16 Colon Cancer Screening-FIT Discontinued 08/15/2016 Colon Cancer Screening-FOBT Discontinued 08/15/2016 Colon Cancer Screening-Sigmoidoscopy Discontinued 08/15/2016 Colorectal Cancer Screening Discontinued Pneumococcal vaccine 65+ Completed 09/06/2019, 08/16 Procedures Procedure Name Priority Date/Time Associated Diagnosis Comments FL BARIUM ENEMA W AIR CONTRAST Schedule Routine, Read Routine (OP Routine) 06/11/2025 9:41 AM CDT Procedure and treatment not carried out because of other contraindication DEXA AXIAL SKELETON BONE DENSITY 1 OR MORE SITES Schedule Routine, Read Routine (OP Routine) 02/12/2020 HM COLONOSCOPY Routine 08/15/2016 from Last 3 Months or Most Recently Relevant to Health Maintenance Results * FL Barium Enema W Air Contrast (06/11/2025 9:41 AM CDT) Anatomical Region Laterality Modality Body N/A Computed Radiogr aphy, Computed Radiography 06/11/2025 9:38 AM CDT Narrative 06/11/2025 9:49 AM CDT EXAM DESCRIPTION: FL BARIUM ENEMA W AIR CONTRAST REASON FOR STUDY: Failed colonscopy RADIATION DOSE: Dose: 3546 uGym2 Dose Area Product (DAP) TECHNIQUE: Following retrograde filling of the colon with barium and air, fluoroscopic spot and overhead imaging of the colon was obtained and saved to PACS. COMPARISON: None FINDINGS: EXAMINATION GRADER KUB: Normal abdominal film with adequate bowel prep. CECUM: Normal mucosa without intraluminal filling defects, intrinsic or extrinsic masses, or lesions. ASCENDING COLON: Normal mucosa without intraluminal filling defects, intrinsic or extrinsic masses, or lesions. TRANSVERSE COLON: Normal mucosa without intraluminal filling defects, intrinsic or extrinsic masses, or lesions. DESCENDING COLON: Normal mucosa without intraluminal filling defects, intrinsic or extrinsic masses, or lesions. SIGMOID COLON: Scattered colonic diverticulosis. Normal mucosa without intraluminal filling defects, intrinsic or extrinsic masses, or lesions. RECTUM: Normal mucosa without intraluminal filling defects, intrinsic or extrinsic masses, or lesions. POST EVAC: Near complete evacuation of barium with no additional findings. OTHER: No other significant finding. IMPRESSION: Scattered sigmoid diverticulosis, otherwise normal air contrast barium enema. THIS IS AN ELECTRONICALLY VERIFIED FINAL REPORT 06/11/2025 9:49 AM - Electronically signed by Robert Espino M.D. JA: RIP Report ID: [id number] Reading Location: [id number] Procedure Note Robert Espino MD - 06/11/2025 EXAM DESCRIPTION: FL BARIUM ENEMA W AIR CONTRAST REASON FOR STUDY: Failed colonscopy RADIATION DOSE: Dose: 3546 uGym2 Dose Area Product (DAP) TECHNIQUE: Following retrograde filling of the colon with barium and air, fluoroscopic spot and overhead imaging of the colon was obtained and savedto PACS. COMPARISON: None FINDINGS: EXAMINATION GRADER KUB: Normal abdominal film with adequate bowel prep. CECUM: Normal mucosa without intraluminal filling defects, intrinsic or extrinsic masses, or lesions. ASCENDING COLON: Normal mucosa without intraluminal filling defects, intrinsic or extrinsic masses, or lesions. TRANSVERSE COLON: Normal mucosa without intraluminal filling defects, intrinsic or extrinsic masses, or lesions. DESCENDING COLON: Normal mucosa without intraluminal filling defects, intrinsic or extrinsic masses, or lesions. SIGMOID COLON: Scattered colonic diverticulosis. Normal mucosa without intraluminal filling defects, intrinsic or extrinsic masses, or lesions. RECTUM: Normal mucosa without intraluminal filling defects, intrinsic or extrinsic masses, or lesions. POST EVAC: Near complete evacuation of barium with no additionalfindings. OTHER: No other significant finding. IMPRESSION: Scattered sigmoid diverticulosis, otherwise normal aircontrast barium enema. THIS IS AN ELECTRONICALLY VERIFIED FINAL REPORT 06/11/2025 9:49 AM - Electronically signed by Robert Espino M.D. JA: RIP Report ID: [id number] Reading Location: [place] [address] Ramez Balderrama MD IMG FLUOROSCOPY PROCEDURES Susie l Result * Dexa Axial Skeleton Bone Density 1 or 2 Site (02/12/2020) Anatomical Region Laterality Modality Body N/A Radiographic Viktoriya ging Historical Provider IMG DXA PROCEDURES Final Result * COLONOSCOPY (08/15/2016) Colonoscopy Unknown Historical Provider HEALTH MAINTENANCE Final Result from Last 3 Months or Most Recently Relevant to Health Maintenance Insurance TNA MEDICARE GOLD [employer] [facility] TNA MEDICARE GOLD Care Teams Microfilm Duplicating Unit Supervisor Relationship Specialty Start Date End Date Brock Acosta MD [address] [address] PCP - General Family Medicine 06/11/25 Ramez Balderrama MD [address] [place] [address] Referring Physician Gastroenterology 09/06/19 Mandeep Bravo MD [address] [place] [address] Referring Physician Ophthalmology 09/06/19
--- OUTSIDE RECORDS SUMMARY | 2025-08-25 18:23 | XMS_ITS | Encounter Summary ---
Author Organization [facility] Address [address] [facility] Attn: Epic Prelude ADT [place] [address] Care Team Providers Care Drill Operator Name Role Phone Brock Acosta MD Primary Care Provider [phone] Encounter Details Date Type Department Care Team (Late st Contact Info) Description 10/23/1996 Outpatient Historical Conversion, History Gómez Smyth MD NO ADDRESS ON FILE Social History Tobacco Use Types Packs/Day Years Used Date Smoking Tobacco: Never Assessed Comments Unknown Sex and Gender Information Value Date Recorded Sex Assigned at Not on file Legal Sex Female 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
--- OUTSIDE RECORDS SUMMARY | 2025-08-25 18:23 | XMS_ITS | Clinical Summary ---
Author Organization [employer] [facility] Address [address] [place] [address] Care Team Providers Care Prosthetic Aides Teacher Name Role Phone Brock Acosta MD Primary Care Provider [phone] Allergies Active Allergy Reactions Criticality Noted Date Comments Penicillins Rash Low 11/07/2009 Medications levothyroxine (SYNTHROID) 75 mcg Oral tablet Take by mouth. Active pantoprazole (PROTONIX) 40 mg Oral TbEC Take by mouth. Active pravastatin (PRAVACHOL) 40 mg Oral tablet Take by mouth. Active OMEGA-3 FATTY ACIDS (OMEGA 3 PO) Take by mouth. Active CALCIUM PO Take by mouth. Active nebivolol (BYSTOLIC) 5 mg Oral Tab Take 5 mg by mouth. Active Active Problems Patient Care Coordination No te Formatting of this note migh t be different from the original. 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 HTN (hypertension) Thyroid disease Hyperlipidemia Family History Medical History Relation Name Comments Heart Disease Brother x4 Cancer Father Heart Disease Father Breast Cancer Maternal Aunt Heart Disease Mother Relation Name Status Comments Brother x4 Alive Father Maternal Aunt Mother Social History Tobacco Use Types Packs/Day Years Used Date Smoking Tobacco: Never Alcohol Use Standard Drinks/Week Comments No 0 (1 standard drink = 0.6 oz pur e alcohol) Comments No Sex and Gender Information Value Date Recorded Sex Assigned at Not on file Legal Sex Female 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 Gender Identity Not on file Sexual Orientation Not on file Occupation Industry Job Start Date Job End Date Not on file Not on file Not on file Not on file Last Filed Vital Signs Vital Sign Reading Time Taken Comments Blood Pressure 122/80 11/11/2009 12:07 PM BLUEPRINT ASSEMBLER Pulse - - Temperature - - Respiratory Rate - - Oxygen Saturation - - Inhaled Oxygen Concentration - - Weight 82.6 kg (182 lb) 11/11/2009 12:07 PM BLUEPRINT ASSEMBLER Height 165.1 cm (5' 5) 11/11/2009 12:07 PM BLUEPRINT ASSEMBLER Body Mass Index 30.29 11/11/2009 12:07 PM BLUEPRINT ASSEMBLER Plan of Treatment Health Maintenance Due Date Last Done Comments DTAP/TDAP/TD VACCINES (1 - Tdap) 1964 PNEUMOCOCCAL VACCINE 50+ YEARS (1 of 1 - PCV) 04/20/19 95 ZOSTER VACCINE (1 of 2) 1995 OSTEOPOROSIS SCREENING 2010 RSV VACCINE (60+ or ) (1 - 1-dose 75+ series) 2020 INFLUENZA VACCINE (#1) 2025 Colorectal Cancer Screening Discontinued FIT/FOBT Q 1 year Discontinued 02/12/2005 COLORECTAL SCREENING Discontinued FIT-DNA Q 3 years Discontinued Flex Sig/CT Colonography Q 5 years Discontinued Insurance [address] BLUE ACCESS/TRUE BLUE PPO Care Teams Prosthetic Aides Teacher Relationship Specialty Start Date End Date Brock Acosta MD PCP - General 11/05/15
--- OUTSIDE RECORDS SUMMARY | 2025-08-25 18:23 | XMS_ITS | Encounter Summary ---
Author Organization [employer] Address 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
--- OUTSIDE RECORDS SUMMARY | 2025-08-25 18:23 | XMS_ITS | Encounter Summary ---
Author Organization [employer] Address 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
[2025-08-25 18:25] VITALS: BP 177/86; PULSE 90; RESP 18; TEMP 36.4; O2SAT 99
--- NOTE | 2025-08-25 18:44 | ECG_ITS ---
Test Date: 2025-08-25 19:15:04 Measurements Intervals [place] Rate: 75 P: 39 OR: 160 QRS: 55 QRSD: 93 T: 69 QT: 355 QTc: 398 Interpretive Statements SINUS RHYTHM BASELINE ARTIFACT- I, II, III, AVL NORMAL ECG No previous ECG available for comparison Electronically Signed On 08-25-2025 19:37:51 CDT by Elías Tai D.O.
--- NOTE | 2025-08-25 18:51 | ED.DENTAL ---
HPI - Dental/Oral General Chief complaint: Dental/Oral Stated complaint: dislocated jaw? Time Seen by Provider: 08/25/25 18:30 History of Present Illness HPI Narrative: Patient was eating a burger and sandwich today when she started noticing she could hear the clicking of her left jaw. She has no chest pain, she has no jaw pain, or neck pain, she was worried that she may have dislocated her jaw so came into the hospital. Has no issues opening or closing her jaw. Related Data Home Medications ?Medication ?Instructions ?Recorded ?Confirmed ?Last Taken ?Type clonidine HCl 0.1 mg tablet 0.1 mg PO TID 03/19/21 04/19/24 06/04/21 06:00 History levothyroxine 100 mcg tablet 100 mcg PO DAILY 03/19/21 04/19/24 06/04/21 06:00 History metoprolol succinate 25 mg 25 mg PO QNOON 03/19/21 04/19/24 06/03/21 12:00 History tablet,extended release 24 hr omeprazole 40 mg capsule,delayed 40 mg PO DAILY 03/19/21 04/19/24 06/03/21 09:00 History release pravastatin 40 mg tablet 40 mg PO HS 03/19/21 04/19/24 06/03/21 21:00 History losartan 50 mg tablet 50 mg PO HS 03/29/21 04/19/24 06/03/21 21:00 History latanoprost (PF) 0.005 % eye drops 1 drp EACH EYE DAILY 04/19/24 04/19/24 Unknown History in a dropperette timolol 0.25 % eye drops 1 drp EACH EYE Q12H 04/19/24 04/19/24 Unknown History Allergies Allergy/AdvReac Type Severity Reaction Status Date / Time Penicillins Allergy Mild Rash Verified 08/25/25 18:31 Review of Systems Review of Systems: All systems reviewed & are unremarkable except as noted in HPI and below PMFSH Past Medical History Medical History GERD (gastroesophageal reflux disease) History of nephrolithotomy with removal of calculi 03/27/21 History of stent insertion of renal artery 03/28/21 Hypertension Thyroid disorder Surgical History Surgical History H/O breast surgery S/P cholecystectomy S/P ERCP Family History Family History Father Thyroid cancer Hypertension Cerebrovascular accident Other Hypertension Thyroid disorder Sibling Hypertension Heart disease Son Hypertension Social History Social History Smoking status: Never smoker Second hand tobacco smoke exposure: No Alcohol intake: never Substance use: never Substance use type: does not use Living arrangements: with family Gender identity (if verbalized by the patient): Female Sexual Orientation (if Verbalized by the Patient): Straight or Heterosexual Spiritual care concerns: No Exam Narrative: EXAMINATION OF ORGAN SYSTEMS/BODY AREAS: Constitutional: Vital signs per nursing GENERAL:[No acute distress, non-toxic appearing.] HEAD: Normal with no signs of head trauma. EYES: EOMI, conjunctiva normal ENT: Normal bite without malocclusion; opening/closing jaw without issues. No deformity or tenderness. LUNGS: Nonlabored breathing. HEART: [Regular rate and rhythm] ABD: [Soft], [nontender to palpation] EXT: Normal range of motion SKIN: [No rashes or lesions.] NEURO: [Alert. No gross focal sensory or strength deficits.] Clear speech. PSYCH: Normal affect Course Vital Signs Vital signs: Vital Signs Temperature 97.6 F 08/25/25 18:25 Pulse Rate 90 08/25/25 18:25 Respiratory Rate 18 08/25/25 18:25 Blood Pressure 177/86 H 08/25/25 18:25 Pulse Oximetry 99 08/25/25 18:25 Temperature 97.6 F 08/25/25 18:25 Pulse Rate 90 08/25/25 18:25 Respiratory Rate 18 08/25/25 18:25 Blood Pressure 177/86 H 08/25/25 18:25 Pulse Oximetry 99 08/25/25 18:25 MDM - Dental/Oral MDM Narrative Medical decision making narrative: Patient presents here after noticing some clicking her left jaw, she is very worried about a possible dislocation. Denies Chest pain, jaw pain, or any painful. She is well-appearing here, she is able to bite down and break popsicle stick on both sides, no issues opening or closing her jaw, I therefore doubt a jaw dislocation and she has a normal exam here. I will obtain an EKG just to make sure there is no cardiac cause but I suspect she does have TMJ and I have discussed this with the patient with follow-up to dentist/ENT as needed. EKG - 12-Lead: Performed at 1915. Interpreted by me. [Sinus rhythm]. Rate [75]. [Normal] axis. VA-interval [normal]. QRS duration [normal]. QTc [normal]. [No ST segment elevation or depression]. [T-wave normal]. Impression: No EKG evidence of acute ischemia or dysrhythmia. Discharge Plan Discharge Clinical Impression: TMJ (temporomandibular joint syndrome) Patient Disposition: Home Condition: Stable Instructions: Temporomandibular Disorder (ED) Additional Instructions: Please follow-up with a dentist or with ENT, if you start having any chest pain, shortness of breath, jaw pain or anything else concerning, he can come back to the hospital. Your blood pressure was elevated today. Make sure you are taking your blood pressure medications and follow up with your doctor. Patient Language: Nepali Prescriptions: No Action latanoprost (PF) 0.005 % dropperette 1 drp EACH EYE DAILY timolol 0.25 % drops 1 drp EACH EYE Q12H omeprazole 40 mg capsule,delayed release(DR/EC) 40 mg PO DAILY pravastatin 40 mg tablet 40 mg PO HS levothyroxine 100 mcg tablet 100 mcg PO DAILY metoprolol succinate 25 mg tablet extended release 24 hr 25 mg PO QNOON clonidine HCl 0.1 mg tablet 0.1 mg PO TID losartan 50 mg tablet 50 mg PO HS Follow-up/Referrals: Matias Sagastume MD [Physician, Ear, Nose, Throat] - 2 Days Dave,Brock Neff MD [Primary Care Provider]
--- OUTSIDE RECORDS SUMMARY | 2025-08-25 19:04 | XMS_ITS | Clinical Summary ---
Author Organization [facility] Address [address] [address] Care Team Providers Care Vest Finisher Name Role Phone Brock Acosta MD Primary Care Provider Source Comments [facility],non-owned Affiliates and Associated Physician Practices is amultiple site organization consisting of ambulatory clinics and hospital sitesin [place], [place], [place] and [place]. This disclosure is being madepursuant to the Care Everywhere program and may not contain all information available regarding this patient. Last updated 18.[facility] Social History Tobacco Use Types Packs/Day Years Used Date Smoking Tobacco: Never Assessed Comments Unknown Sex and Gender Information Value Date Recorded Sex Assigned at Not on file Legal Sex Female 12:11 PM BRANCH DIRECTOR Gender Identity Not on file Sexual Orientation [...] patient's age [place] [address] [employer] Care Teams Vest Finisher Relationship Specialty Start Date End Date Brock Acosta MD [address] [place] [address] PCP - General 06/19/21
--- OUTSIDE RECORDS SUMMARY | 2025-08-25 19:04 | XMS_ITS | Encounter Summary ---
Author Organization [facility] Address [address] Attn: Epic Prelude ADT [place] [address] Care Team Providers Care Engineering Director Name Role Phone Brock Acosta MD Primary Care Provider [phone] Encounter Details Date Type Department Care Team (Late st Contact Info) Description 07/17/1997 Outpatient Historical Conversion, History Gómez Smyth MD NO ADDRESS ON FILE Social History Tobacco Use Types Packs/Day Years Used Date Smoking Tobacco: Never Assessed Comments Unknown Sex and Gender Information Value Date Recorded Sex Assigned at Not on file Legal Sex Female 4:19 AM ASSISTANT ACCOUNT MANAGER Gender Identity Not on file Sexual Orientation Not on file documented as of this encounter Plan of Treatment Not on file documented as of this encounter Visit Diagnoses Not on filedocumented in this encounter Care Teams Engineering Director Relationship Specialty Start Date End Date Brock Acosta MD PCP - General 11/05/15 documented as of this encounter
--- OUTSIDE RECORDS SUMMARY | 2025-08-25 19:04 | XMS_ITS | Encounter Summary ---
Author Organization [facility] Address [address] Attn: Epic Prelude ADT [place] [address] Care Team Providers Care Hi Lift Operator Name Role Phone Brock Acosta MD Primary Care Provider [phone] Encounter Details Date Type Department Care Team (Late st Contact Info) Description 08/08/1996 Outpatient Historical Gómez Smyth MD NO ADDRESS ON FILE Social History Tobacco Use Types Packs/Day Years Used Date Smoking Tobacco: Never Assessed Comments Unknown Sex and Gender Information Value Date Recorded Sex Assigned at Not on file Legal Sex Female 4:19 AM MAIL ORDER CLERK Gender Identity Not on file Sexual Orientation Not on file documented as of this encounter Plan of Treatment Not on file documented as of this encounter Visit Diagnoses Not on filedocumented in this encounter Care Teams Hi Lift Operator Relationship Specialty Start Date End Date Brock Acosta MD PCP - General 11/05/15 documented as of this encounter
--- OUTSIDE RECORDS SUMMARY | 2025-08-25 19:04 | XMS_ITS | Encounter Summary ---
Author Organization [facility] Care Team Providers Care Sap Business Objects Developer Name Role Phone Brock Acosta MD Primary Care Provider [phone] Ramez Balderrama MD Unavailable [phone] Mandeep Bravo MD Unavailable [phone] Edis Levine MD Primary Care Provider [phone] Brock Acosta MD Primary Care Provider [phone] Encounter Details Date Type Department Care Team (Latest Contact Info) Description 11/11/2017 Orders Only [facility] ProviderMena MD [address] [place], [place] [id number] Social History Tobacco Use Types Packs/Day Years Used Date Smoking Tobacco: Never Assessed Comments Unknown Sex and Gender Information Value Date Recorded Sex Assigned at Not on file Legal Sex Female 10:24 AM RING SORTER Gender Identity Not on file Sexual Orientation Not on file documented as of this encounter Plan of Treatment Not on file documented as of this encounter Procedures Procedure Name Priority Date/Time Associated Diagnosis Comments PROCEDURE - RESULT 11/16/2017 12 :00 AM RING SORTER documented in this encounter Results * PROCEDURE - RESULT (11/16/2017 12:00 AM RING SORTER) Narrative 11/16/2017 12:00 AM RING SORTER Ordered by an unspecified provider. Historical Provider Final Res ult documented in this encounter Visit Diagnoses Not on filedocumented in this encounter Care Teams Sap Business Objects Developer Relationship Specialty Start Date End Date Brock Acosta MD PCP - General Family Medicine 02/09/19 01/07/23 Edis Levine MD [address] [place] [address] PCP - General Family Medicine 01/08/23 04/02/25 Brock Acosta MD [address] [place] [address] PCP - General Family Medicine 06/11/25 Ramez Balderrama MD [address] [place] [address] Referring Physician Gastroenterology 09/06/19 Mandeep Bravo MD [address] [place] [address] Referring Physician Ophthalmology 09/06/19 documented as of this encounter
--- OUTSIDE RECORDS SUMMARY | 2025-08-25 19:04 | XMS_ITS | Encounter Summary ---
Author Organization [facility] Address [address] [place] [address] Care Team Providers Care Traffic Engineer Name Role Phone Brock Acosta MD Primary Care Provider [phone] Encounter Details Date Type Department Care Team (Late st Contact Info) Description 04/24/2005 Outpatient Historical [facility], [address] Gómez Smyth MD NO ADDRESS ON FILE Social History Tobacco Use Types Packs/Day Years Used Date Smoking Tobacco: Never Assessed Comments Unknown Sex and Gender Information Value Date Recorded Sex Assigned at Not on file Legal Sex Female 4:19 AM DUCT LAYER Gender Identity Not on file Sexual Orientation [...] on filedocumented in this encounter Care Teams Traffic Engineer Relationship Specialty Start Date End Date Brock Acosta MD PCP - General 11/05/15 documented as of this encounter
--- OUTSIDE RECORDS SUMMARY | 2025-08-25 19:04 | XMS_ITS | Encounter Summary ---
Author Organization [facility] Address [address] [place] [address] Care Team Providers Care Flat Optical Element Maker Name Role Phone Brock Acosta MD Primary Care Provider Encounter Details Date Type Department Care Team (Late st Contact Info) Description 01/17/[address] [facility] Derm[facility] Lab [address] [place] [address] Chuck Marte MD [address] [place] [address] Social History Tobacco Use Types Packs/Day Years Used Date Smoking Tobacco: Never Assessed Comments Unknown Sex and Gender Information Value Date Recorded Sex Assigned at Not on file Legal Sex Female 12:11 PM SENIOR ECOLOGIST Gender Identity Not on file Sexual Orientation Not on file documented as of this encounter Plan of Treatment Not on file documented as of this encounter Procedures Procedure Name Priority Date/Time Associated Diagnosis Comments DERMATOPATHOLOGY Routine 01/16/2020 12:0 0 AM SENIOR ECOLOGIST documented in this encounter Results * DERMATOPATHOLOGY (01/16/2020 12:00 AM SENIOR ECOLOGIST) Case Report Dermatopathology Report Case: [id number] Authorizing Provider: Chuck Marte MD Collected: 01/16/2020 12:00 AM Ordering Location: [facility] Derm[facility] Lab Received: 01/17/2020 01:24 PM Pathologist: Willa Byrd MD Specimen: Skin, left posterior lateral back 0 2:10 PM SENIOR ECOLOGIST DERMATOPATHOLOGY LABORATORY Final Diagnosis Specimen A. 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 0 2:10 PM [facility] DERMATOPATHOLOGY LABORATORY Gross Description Specimen A: Received is one formalin filled container labeled with the patient's name and designated left posterior lateral back. The specimen consists of a shave biopsy measuring [id number], bisected. Jar 0. 0 2:10 PM [facility] DERMATOPATHOLOGY LABORATORY Microscopic Description Specimen A. SKIN, left posterior lateral back: Sections show papillomatosis with overlying parakeratosis. Some of the cells within the granular layer show coarsened keratohyalin granules. Within the dermis, dilated vessels, and a patchy lymphocytic infiltrate are present. 0 2:10 PM [facility] DERMATOPATHOLOGY LABORATORY Disclaimer An external and internal positive and negative controls are appropriate for the histochemical, immunohistochemical and immunofluorescence stain(s) in this case (if any), except where stated explicitly. The performance characteristics of the stain(s) cited in this report were developed and its performance characteristic determined by the Dermatopathology Laboratory at [facility], directed by Dr. Amanda Sevilla. These tests need not be, and therefore are not, approved by the [place] Food and Drug Administration. The tests are used for clinical purposes. Billing Codes Specimen Charges Stain Charges 98714 1 0 2:10 PM [facility] DERMATOPATHOLOGY [facility]ORATORY Embedded Images 0 2:10 PM [facility] DERMATOPATH[facility] Pathology/Cytolog y TISSUE SPECIMEN FROM SKIN / Unknown 01/16/2020 01/17/2020 1:24 PM [facility] us Chuck Marte MD LAB - PATHOLOGY/CYTOLOGY ORD ERABLES Final Result DERMATOPATHOLOGY LABORATORY [facility] - Department of Dermatology [address] [place] [address], [place] [phone] documented in this encounter Visit Diagnoses Not on filedocumented in this encounter Care Teams Flat Optical Element Maker Relationship Specialty Start Date End Date Brock Acosta MD [facility] Anaya [address] [place] [id number] PCP - General 06/19/21 documented as of this encounter
--- OUTSIDE RECORDS SUMMARY | 2025-08-25 19:04 | XMS_ITS | Encounter Summary ---
Author Organization [facility] Address [address] [place] [address] Care Team Providers Care Supervisor Hardboard Name Role Phone Brock Acosta MD Primary Care Provider [phone] Encounter Details Date Type Department Care Team (Late st Contact Info) Description 04/24/2005 Outpatient Historical [facility] Gómez Smyth MD NO ADDRESS ON FILE Social History Tobacco Use Types Packs/Day Years Used Date Smoking Tobacco: Never Assessed Comments Unknown Sex and Gender Information Value Date Recorded Sex Assigned at Not on file Legal Sex Female 4:19 AM STROKE PROGRAM COORDINATOR Gender Identity Not on file Sexual Orientation Not on file documented as of this encounter Plan of Treatment Not on file documented as of this encounter Visit Diagnoses Not on filedocumented in this encounter Care Teams Supervisor Hardboard Relationship Specialty Start Date End Date Brock Acosta MD PCP - General 11/05/15 documented as of this encounter
--- OUTSIDE RECORDS SUMMARY | 2025-08-25 19:04 | XMS_ITS | Encounter Summary ---
Author Organization [facility] Address [address] Attn: Epic Prelude ADT [place] [address] Care Team Providers Care Bicycle Repairman Name Role Phone Brock Acosta MD Primary Care Provider [phone] Encounter Details Date Type Department Care Team (Late st Contact Info) Description 10/23/1996 Outpatient Historical Conversion, History Gómez Smyth MD NO ADDRESS ON FILE Social History Tobacco Use Types Packs/Day Years Used Date Smoking Tobacco: Never Assessed Comments Unknown Sex and Gender Information Value Date Recorded Sex Assigned at Not on file Legal Sex Female 4:19 AM SENIOR JAVA J2EE DEVELOPER Gender Identity Not on file Sexual Orientation Not on file documented as of this encounter Plan of Treatment Not on file documented as of this encounter Visit Diagnoses Not on filedocumented in this encounter Care Teams Bicycle Repairman Relationship Specialty Start Date End Date Brock Acosta MD PCP - General 11/05/15 documented as of this encounter
--- OUTSIDE RECORDS SUMMARY | 2025-08-25 19:04 | XMS_ITS | Clinical Summary ---
Author Organization [facility] Address [address] [place] [address] Care Team Providers Care Medical Device Assembler Name Role Phone Brock Acosta MD Primary Care Provider [phone] Allergies Active Allergy Reactions Criticality Noted Date [...] Brock Acosta MD Referring Provider: Brock Acosta [address] [place] [address] 2 Other: Problem Noted Date Diagnosed Date [...] on file Legal Sex Female 4:19 AM GRANTS SPECIALIST Gender Identity Not on file Sexual Orientation Not on file Occupation Industry Job Start Date Job End Date Not on file Not on file Not on file Not on file Last Filed Vital Signs Vital Sign Reading Time Taken Comments Blood Pressure 122/80 11/11/2009 12:07 PM GRANTS SPECIALIST Pulse - - Temperature - - Respiratory Rate - - Oxygen Saturation - - Inhaled Oxygen Concentration - - Weight 82.6 kg (182 lb) 11/11/2009 12:07 PM GRANTS SPECIALIST Height 165.1 cm (5' 5) 11/11/2009 12:07 PM GRANTS SPECIALIST Body Mass Index 30.29 11/11/2009 12:07 PM GRANTS SPECIALIST Plan of Treatment Health Maintenance Due Date [...] Sig/CT Colonography Q 5 years Discontinued Insurance [address] BLUE ACCESS/TRUE BLUE PPO Care Teams Medical Device Assembler Relationship Specialty Start Date End Date Brock Acosta MD PCP - General 11/05/15
--- OUTSIDE RECORDS SUMMARY | 2025-08-25 19:04 | XMS_ITS | Encounter Summary ---
Author Organization [facility] Address [address] [place] [address] Care Team Providers Care Doctor Chiropractic Name Role Phone Brock Acosta MD Primary Care Provider [phone] Encounter Details Date Type Department Care Team (Late st Contact Info) Description 06/11/2005 Outpatient Historical [facility], [address] Gómez Smyth MD NO ADDRESS ON FILE Social History Tobacco Use Types Packs/Day Years Used Date Smoking Tobacco: Never Assessed Comments Unknown Sex and Gender Information Value Date Recorded Sex Assigned at Not on file Legal Sex Female 4:19 AM STUDENT FINANCIAL AID MANAGER Gender Identity Not on file Sexual [...] ORDERABLES Final Re sult Performing Organization Address City/[facility] Co de Phone Number INTERFACE SYSTEM [...] ORDERABLES Final Re sult Performing Organization Address City/[facility]/ZIP Co de Phone Number INTERFACE SYSTEM Refer to clinic/hospital department documented in this encounter Visit Diagnoses Not on filedocumented in this encounter Care Teams Doctor Chiropractic Relationship Specialty Start Date End Date Dave, Brock P, MD PCP - General 11/05/15 documented as of this encounter
--- OUTSIDE RECORDS SUMMARY | 2025-08-25 19:04 | XMS_ITS | Encounter Summary ---
Author Organization [facility] Address [address] [place] [address] Care Team Providers Care Sample Body Builder Name Role Phone Brock Acosta MD Primary Care Provider [phone] Encounter Details Date Type Department Care Team (Late st Contact Info) Description 02/12/2005 Outpatient Historical [facility] Gómez Smyth MD NO ADDRESS ON FILE Social History Tobacco Use Types Packs/Day Years Used Date Smoking Tobacco: Never Assessed Comments Unknown Sex and Gender Information Value Date Recorded Sex Assigned at Not on file Legal Sex Female 4:19 AM DIRECTOR MEDICAL AFFAIRS Gender Identity Not on file Sexual Orientation Not on file documented as of this encounter Plan of Treatment Not on file documented as of this encounter Visit Diagnoses Not on filedocumented in this encounter Care Teams Sample Body Builder Relationship Specialty Start Date End Date Brock Acosta MD PCP - General 11/05/15 documented as of this encounter
--- OUTSIDE RECORDS SUMMARY | 2025-08-25 19:04 | XMS_ITS | Clinical Summary ---
Author Organization [facility] Address [address] [place] [address] Care Team Providers Care Cupola Liner Name Role Phone Brock Acosta MD Primary Care Provider [phone] Social History Tobacco Use Types Packs/Day Years [...] age to complete this topic Care Teams Cupola Liner Relationship Specialty Start Date End Date Brock Acosta MD PCP - General 06/24/11
--- OUTSIDE RECORDS SUMMARY | 2025-08-25 19:04 | XMS_ITS | Data Portability ---
Author Organization [facility] Address [address] [place] [address] Assessment No assessment recorded. Plan of Treatment Reminders Order Date Submit Date Provider Last Modified By Organization Details Last Modified Time Details Appointments ANY 15 2025 07:45A Violet Acosta MD Not available Not available Not available ANY 2025 08:00A Violet Acosta MD Not available Not available Not available Lab CMP, serum or plasma 2024 025 [facility] (Imaging), [address] [place] [address], [phone], 08/14/2025 16:28:18 lipid panel, serum 2024 025 [facility] (Imaging), [address] [place] [address], [phone], 08/14/2025 16:28:17 CBC 2024 025 [facility] (Imaging), [address] [place] [address], [phone], 08/15/2025 11:17:07 TSH, serum or plasma 2024 025 [facility], [address] , [place], [address], 07/04/2025 03:34:12 T3, free, serum or plasma 2024 025 [facility], [address], [place], [address], 07/04/2025 03:34:10 T4, free, serum 2024 025 [facility], [address], [place], [address], 07/04/2025 03:34:11 TSH, serum or plasma 2024 025 TARYN Not available 04/10/2025 21:56:40 T4, free, serum 2024 025 TARYN Not available 04/12/2025 08:13:57 T3, free, serum or plasma 2024 025 TARYN Not available 04/12/2025 08:13:58 vitamin B12 + folate, serum or blood 2024 025 TARYN Not available 04/12/2025 12:13:39 lipid panel, serum 2023 024 [email or web address], [address], [place], [address], 10/17/2024 19:50:44 Referral None recorded. Procedures None recorded. Surgeries None recorded. Imaging MAMMO, screening , digital, bilateral [email or web address] [place] [address] Imaging Center, [address] [place] [address] [address], [place], [address], 08/14/2025 14:10:06 Medication Orders triamcino lone acetonide 40 mg/mL suspensio n for injection 2024 025 [email or web address] [id number], [address] [place] [address] [address], [place], [address], 07/18/2025 12:32:04 Medrol (Robert) 4 mg tablets in a dose pack 2024 025 [email or web address] [facility], [address], [place], [address], 07/18/2025 12:32:04 gabapenti n 100 mg capsule 2024 025 [email or web address] [facility], [address] , [place], [address], 06/21/2025 10:42:50 gabapenti n 100 mg capsule 2024 025 [email or web address] [id number], [address] [facility], [place], [address], 04/10/2025 11:58:23 Patient TargetsNo targets recorded. Patient InstructionsNo instructions recorded. Reason for Referral None Reported. Results Created Date Observation Date Name Description Value Unit Range Abnormal Flag Note LastModifiedBy Organization Detail LastModifiedTime 04/10/2004/10/2025 THYRO ID STIMU LATIN G HORMO NE thyroid stimulating hormone <=0.27 0 uIU/m L 0.450- 4.500 low Not Available [facility] [address] [place], [address], 04/10/2025 21:56:40 04/10/2004/12/2025 T4,FR EE(DI RECT) T4,free(dire ct) 3.40 NG/dL 0.82-1 .77 abnormal Not Available [facility] (Lab) [address] [place], [address], 04/12/2025 08:13:57 04/10/2004/12/2025 TRIIO DOTHY CLARA E (T3), FREE triiodothyro nine (T3), free 5.0 pg/mL 2.0-4. 4 abnormal Perfo rmed at: 01 - [facility] n [address], [place] [id number] [facility] Lab Direc tor: Jonathan cazares PhD, Phone : [phone] Not Available [facility] [address] [place], [address], 04/12/2025 08:13:58 04/10/2004/12/2025 VITAM IN B12 AND FOLAT E vitamin B12 650 pg/mL 232-12 45 Not Available [facility] (Lab) [address] [place], [address], 04/12/2025 12:13:39 04/10/20 25 04/12/2025 VITAM IN B12 AND FOLAT E folate (folic acid), serum 13.7 NG/mL >3.0 A serum folat e kimber ntrat ion of less than 3.1 ng/mL is consi dered to repre sent clini onelia defic iency . Perfo rmed at: 01 - [facility] [address], [place] [id number] Lab Direc tor: Jonathan cazares PhD, Phone : [phone] Not Available [facility] (Lab) [address] [place], [address], 04/12/2025 12:13:39 07/03/20 25 07/04/2025 T3, FREE T3, free 2.8 pg/mL 2.3-4. 2 normal Not Available [facility] [address], [address], 07/04/2025 03:34:10 07/03/20 25 07/04/2025 T4, FREE T4, free 1.5 NG/dL 0.8-1. 8 normal Not Available [facility] [address], [address], 07/04/2025 03:34:11 07/03/20 25 07/04/2025 TSH TSH 0.10 mIU/L 0.40-4 .50 low Not Available [facility] [address], [address], 07/04/2025 03:34:11 08/14/20 25 08/14/2025 LIPID PANEL , STAND OUMAR cholesterol, total 157 mg/dL <200 normal Not Available [facility] [address], [address], 08/14/2025 16:28:17 08/14/2008/14/2025 LIPID PANEL , STAND OUMAR HDL cholesterol 64 mg/dL > or = 50 normal Not Available [address], [address], 08/14/2025 16:28:17 08/14/2008/14/2025 LIPID PANEL , STAND OUMAR triglyceride s 94 mg/dL <150 normal Not Available [address], [address], 08/14/2025 16:28:17 08/14/2008/14/2025 LIPID PANEL , STAND OUMAR LDL-choleste rol 75 mg/dL _(onelia c) normal Refer ence range : <100 Syed able range <100 mg/dL for prima ry preve ntion ; <70 mg/dL for patie nts with CHD or diabe tic patie nts with > or = 2 CHD risk facto rs. LDL-C is now calcu lated using the Estephania dotson-Hop kins calcu deyanira n, which is a valid ated novel metho d provi ding michelle r accur acy than the Fried art equat ion in the estim ation of LDL-C . Estephania dotson SS et al. ELOY. 2013; 310(1 9): 2061- 2068 (http ://ed ucati on.Qu mercyPolicard. com/f aq/FA Q164) Not Available [address], [address], 08/14/2025 16:28:17 08/14/2008/14/2025 LIPID PANEL , STAND OUMAR chol/HDLC ratio 2.5 (calc ) <5.0 normal Not Available [address], [address], 08/14/2025 16:28:17 08/14/2008/14/2025 LIPID PANEL , STAND OUMAR non HDL cholesterol 93 mg/dL _(onelia c) <130 normal For patie nts with diabe eligio plus 1 major ASCVD risk facto r, treat ing to a non-H DL-C goal of <100 mg/dL (LDL- C of <70 mg/dL ) is consi dered a thera peuti c optio n. Not Available [address], [address], 08/14/2025 16:28:17 08/14/2008/14/2025 COMPR EHENS STEPH METAB OLIC PANEL glucose 102 mg/dL 65-99 high Fasti ng refer ence inter ciaran For someo ne witho ut known diabe eligio, a gluco se value betwe en 100 and 125 mg/dL is consi stent with predi abete s and shoul d be confi rmed with a follo w-up test. Not Available [address], [address], 08/14/2025 16:28:18 08/14/2008/14/2025 COMPR EHENS STEPH METAB OLIC PANEL urea nitrogen (BUN) 11 mg/dL 7-25 normal Not Available [address], [address], 08/14/2025 16:28:18 08/14/2008/14/2025 COMPR EHENS STEPH METAB OLIC PANEL creatinine 0.62 mg/dL 0.60-0 .95 normal Not Available [address], [address], 08/14/2025 16:28:18 08/14/2008/14/2025 COMPR EHENS STEPH METAB OLIC PANEL eGFR 90 mL/mi n/1.7 3m2 > or = 60 normal Not Available [address], [address], 08/14/2025 16:28:18 08/14/2008/14/2025 COMPR EHENS STEPH METAB OLIC PANEL BUN/creatini ne ratio SEE NOTE: (calc ) 6-22 Not Repor sara: BUN and Creat inine are withi n refer ence range . Not Available [address] [place], [address], 08/14/2025 16:28:18 08/14/2008/14/2025 COMPR EHENS STEPH METAB OLIC PANEL sodium 138 mmol/ L 135-14 6 normal Not Available [address], [address], 08/14/2025 16:28:18 08/14/2008/14/2025 COMPR EHENS STEPH METAB OLIC PANEL potassium 4.2 mmol/ L 3.5-5. 3 normal Not Available [address], [address], 08/14/2025 16:28:18 08/14/20 25 08/14/2025 COMPR EHENS STEPH METAB OLIC PANEL chloride 102 mmol/ L 98-110 normal Not Available [address], [address], 08/14/2025 16:28:18 08/14/20 25 08/14/2025 COMPR EHENS STEPH METAB OLIC PANEL carbon dioxide 31 mmol/ L 20-32 normal Not Available [place] [address] [place], [address], 08/14/2025 16:28:18 08/14/2008/14/2025 COMPR EHENS STEPH METAB OLIC PANEL calcium 9.6 mg/dL 8.6-10 .4 normal Not Available [facility] [address], [address], 08/14/2025 16:28:18 08/14/20 25 08/14/2025 COMPR EHENS STEPH METAB OLIC PANEL protein, total 6.3 g/dL 6.1-8. 1 normal Not Available [facility] [address] [place], [address], 08/14/2025 16:28:18 08/14/20 25 08/14/2025 COMPR EHENS STEPH METAB OLIC PANEL albumin 3.8 g/dL 3.6-5. 1 normal Not Available [address], [address], 08/14/2025 16:28:18 08/14/20 25 08/14/2025 COMPR EHENS STEPH METAB OLIC PANEL globulin 2.5 g/dL_ (calc ) 1.9-3. 7 normal Not Available [address], [address], 08/14/2025 16:28:18 08/14/20 25 08/14/2025 COMPR EHENS STEPH METAB OLIC PANEL albumin/glob ulin ratio 1.5 (calc ) 1.0-2. 5 normal Not Available [address], [address], 08/14/2025 16:28:18 08/14/20 25 08/14/2025 COMPR EHENS STEPH METAB OLIC PANEL bilirubin, total 0.7 mg/dL 0.2-1. 2 normal Not Available [address], [address], 08/14/2025 16:28:18 08/14/20 25 08/14/2025 COMPR EHENS STEPH METAB OLIC PANEL alkaline phosphatase 69 U/L 37-153 normal Not Available [address], [address], 08/14/2025 16:28:18 08/14/20 25 08/14/2025 COMPR EHENS STEPH METAB OLIC PANEL AST 20 U/L 10-35 normal Not Available [address], [address], 08/14/2025 16:28:18 08/14/20 25 08/14/2025 COMPR EHENS STEPH METAB OLIC PANEL ALT 22 U/L 6-29 normal Not Available [address], [address], 08/14/2025 16:28:18 08/14/2008/14/2025 CBC (INCL UDES DIFF/ PLT) white blood cell count 7.1 thous and/u L 3.8-10 .8 normal Not Available [address], [address], 08/14/2025 16:28:19 08/14/2008/14/2025 CBC (INCL UDES DIFF/ PLT) red blood cell count 4.30 lawrence on/uL 3.80-5 .10 normal Not Available [address], [address], 08/14/2025 16:28:19 08/14/2008/14/2025 CBC (INCL UDES DIFF/ PLT) hemoglobin 13.1 g/dL 11.7-1 5.5 normal Not Available [address], [address], 08/14/2025 16:28:19 08/14/2008/14/2025 CBC (INCL UDES DIFF/ PLT) hematocrit 40.8 % 35.0-4 5.0 normal Not Available [address], [address], 08/14/2025 16:28:19 08/14/2008/14/2025 CBC (INCL UDES DIFF/ PLT) MCV 94.9 fL 80.0-1 00.0 normal Not Available [address], [address], 08/14/2025 16:28:19 08/14/2008/14/2025 CBC (INCL UDES DIFF/ PLT) MCH 30.5 pg 27.0-3 3.0 normal Not Available [address], [address], 08/14/2025 16:28:19 08/14/2008/14/2025 CBC (INCL UDES DIFF/ PLT) MCHC 32.1 g/dL 32.0-3 6.0 normal For adult s, a sligh t decre ase in the calcu lated MCHC value (in the range of 30 to 32 g/dL) is most likel y not clini ruth signi iker t; shawn er, it shoul d be inter prete d with cauti on in [facility] n with other red cell jazmine eters and the patie nt's clini onelia condi tion. Not Available [facility] [address], [address], 08/14/2025 16:28:19 08/14/2008/14/2025 CBC (INCL UDES DIFF/ PLT) RDW 12.8 % 11.0-1 5.0 normal Not Available [facility] [address], [address], 08/14/2025 16:28:19 08/14/2008/14/2025 CBC (INCL UDES DIFF/ PLT) platelet count 264 thous and/u L 140-40 0 normal Not Available [address], [address], 08/14/2025 16:28:19 08/14/2008/14/2025 CBC (INCL UDES DIFF/ PLT) MPV 10.1 fL 7.5-12 .5 normal Not Available [facility] [address], [address], 08/14/2025 16:28:19 08/14/2008/14/2025 CBC (INCL UDES DIFF/ PLT) absolute neutrophils 4793 cells /uL 1500-7 800 normal Not Available [facility] [address], [address], 08/14/2025 16:28:19 08/14/2008/14/2025 CBC (INCL UDES DIFF/ PLT) absolute lymphocytes 1363 cells /uL 850-39 00 normal Not Available [address], [address], 08/14/2025 16:28:19 08/14/2008/14/2025 CBC (INCL UDES DIFF/ PLT) absolute monocytes 781 cells /uL 200-95 0 normal Not Available [address], [address], 08/14/2025 16:28:19 08/14/2008/14/2025 CBC (INCL UDES DIFF/ PLT) absolute eosinophils 92 cells /uL 15-500 normal Not Available [address], [address], 08/14/2025 16:28:19 08/14/2008/14/2025 CBC (INCL UDES DIFF/ PLT) absolute basophils 71 cells /uL 0-200 normal Not Available [address], [address], 08/14/2025 16:28:19 08/14/2008/14/2025 CBC (INCL UDES DIFF/ PLT) neutrophils 67.5 % normal Not Available [address], [address], 08/14/2025 16:28:19 08/14/2008/14/2025 CBC (INCL UDES DIFF/ PLT) lymphocytes 19.2 % normal Not Available [address], [address], 08/14/2025 16:28:19 08/14/2008/14/2025 CBC (INCL UDES DIFF/ PLT) monocytes 11.0 % normal Not Available [address], [address], 08/14/2025 16:28:19 08/14/20 25 08/14/2025 CBC (INCL UDES DIFF/ PLT) eosinophils 1.3 % normal Not Available [facility] [address] [place] [address], [address], 08/14/2025 16:28:19 08/14/20 25 08/14/2025 CBC (INCL UDES DIFF/ PLT) basophils 1.0 % normal Not Available [facility] [address] [place] [address], [address], 08/14/2025 16:28:19 Result Notes None recorded. Problems Name Problem SNOMED Code Status Onset Date Resolution Date Notes Provider Name and Address Organization Details Recorded Time Pain of right elbow joint 5559565890242 9109 Active 2023 Brock Acosta MD Attn: Aleks cherry,[address] [place], [address], [place] [facility] 10:37:39 Eczema 43548789 Active 2023 Brock Acosta MD Attn: Aleks cherry,[address] [place], [address], [place] [facility] 4 10:37:40 Hypercholes terolemia 63274606 Active 2023 Brock Acosta MD Attn: Aleks cherry,[address] [place], [address], [place] [facility] 4 10:37:41 Hypothyroid ism 16099029 Active 2023 Brock Acosta MD Attn: Aleks cherry,[address] [facility], [place], [address], [place] [facility] 4 10:37:41 Right trigeminal neuralgia 2050575700642 9105 Active 2023 Brock Acosta MD Attn: Aleks cherry,[address] [place], [address], [place] [facility] 4 10:37:42 Gastroesoph ageal reflux disease without esophagitis 459314148 Active 2023 Brock Acosta MD Attn: Aleks cherry,[address] [facility], [place], [address], [facility] 4 10:37:43 Benign essential hypertensio n 6515306 Active 2023 Brock Acosta MD Attn: Aleks cherry,[address] [facility], [place], [address], [facility] 4 10:37:46 Problem Notes None recorded. Procedures Surgical History Date Name Laterality Status Provider Name and Address Organization Details Recorded Time Eye Surgery completed True Merino MA [facility] 04/10/2025 12:44:01 operation on gallbladder completed True Merino MA [facility] 04/10/2025 12:44:14 ligation of bilateral fallopian tubes completed True Merino MA [facility] 04/10/2025 12:44:29 augmentation of bilateral breasts completed True Merino MA [facility] 04/10/2025 12:44:44 dilation and curettage of uterus completed True Merino [facility] 04/10/2025 12:45:01 Imaging Results None recorded. Procedure Notes None recorded. Medical Equipment None Reported. Allergies Allergen ID Allergen Name Allergen Category Reaction Reaction Severity Criticality Documentation Date Start Date Code Code System Note Provider Name and Address Organization Details Recorded Time 887679 Product containin g penicilli n (product) medicatio n Not available Not available [facility] 03/20/2024 39957 8001 SNOMED Almaz Dunham [facility], [facility] 4 10:05:47 Medications Name Sig Start Date Stop Date Status Note LastModified by Organization Details LastModified Time losartan 50 mg tablet TAKE 1 TABLET BY MOUTH EVERY DAY active Not Available Not Available No t Available latanoprost 0.005 % eye drops INSTILL 1 DROP INTO BOTH EYES AT BEDTIME active Not Available Not Available No t Available clonidine HCl 0.1 mg tablet TAKE 1 TABLET BY MOUTH THREE TIMES A DAY FOR 90 DAYS active Not Available Not Available No t Available doxycycline hyclate 100 mg capsule TAKE 1 CAPSULE BY MOUTH TWICE A DAY FOR 10 DAYS 03/20 completed Not Available Not Available Not Available pravastatin 40 mg tablet TAKE 1 TABLET BY MOUTH EVERY DAY active Not Available Not Available No t Available famotidine 40 mg tablet TAKE 1 TABLET BY MOUTH EVERY DAY active Not Available Not Available No t Available prednisone 20 mg tablet TAKE 2 TABLETS BY MOUTH EVERY DAY FOR 5 DAYS 03/20 completed Not Available Not Available Not Available peg-electro lyte solution 420 gram oral solution TAKE DIRECTED BY OFFICE active Not Available Not Available No t Available omeprazole 40 mg capsule,del ayed release TAKE 1 CAPSULE BY MOUTH TWICE A DAY active Not Available Not Available No t Available triamcinolo ne acetonide 0.1 % topical cream APPLY 1 APPLICATI ON (TOPICAL) EVERY 8 HOURS FOR 7 DAYS (APPLY TO RASH ON RIGHT ELBOW) 05/16 completed Not Available Not Available Not Available levothyroxi ne 75 mcg tablet TAKE 1 TABLET BY MOUTH EVERY DAY active Not Available Not Available No t Available levothyroxi ne 100 mcg tablet TAKE 1 TABLET BY MOUTH EVERY DAY 04/21 completed Not Available Not Available Not Available levothyroxi ne 88 mcg tablet TAKE 1 TABLET BY MOUTH EVERY DAY FOR 30 DAYS 04/11 completed Not Available Not Available Not Available triamcinolo ne acetonide 40 mg/mL suspension for injection Take 80 mg by injection route for 1 day. 2024 active Not Available Not Available Not Avai lable gabapentin 100 mg capsule TAKE 1 CAPSULE BY MOUTH THREE TIMES A DAY FOR 90 DAYS active Not Available Not Available No t Available metoprolol succinate ER 25 mg tablet,exte nded release 24 hr TAKE 1 TABLET BY MOUTH EVERY DAY active Not Available Not Available No t Available methylpredn isolone 4 mg tablets in a dose pack TAKE 6 TABLETS ON DAY 1 DIRECTED ON PACKAGE AND DECREASE BY 1 TAB EACH DAY FOR A TOTAL OF 6 DAYS active Not Available Not Available No t Available timolol maleate 0.5 % eye drops INSTILL 1 DROP INTO BOTH EYES TWICE A DAY active Not Available Not Available No t Available doxepin 6 mg tablet TAKE 1 TABLET BY MOUTH EVERY DAY AT BEDTIME NEEDED 03/20 completed Not Available Not Available Not Available Vitals Date Recorded Body height Body mass index (BMI) Body weight Oxygen saturation Oxygen saturation in Arterial blood by Pulse oximetry Heart rate Systolic And Diastolic Provider Name and Address Organization Details Last Updated DateTime 5 165.1 cm 30.3 kg/m2 84675.8 6 g 95 % 95 % 63 /min 122/72 mm[Hg] Rufina Flores MA [facility] 5 09:47:11 Date Recorded Body height Body mass index (BMI) Body weight Oxygen saturation Oxygen saturation in Arterial blood by Pulse oximetry Heart rate Systolic And Diastolic Provider Name and Address Organization Details Last Updated DateTime 5 165.1 cm 28.8 kg/m2 13525.8 3 g 98 % 98 % 71 /min 128/82 mm[Hg] True Merino MA [facility] 5 10:42:28 Date Recorded Body height Body mass index (BMI) Body weight Oxygen saturation Oxygen saturation in Arterial blood by Pulse oximetry Heart rate Systolic And Diastolic Provider Name and Address Organization Details Last Updated DateTime 5 165.1 cm 28.4 kg/m2 89958.8 g 95 % 95 % 72 /min 120/70 mm[Hg] Rufina Flores MA [facility] 5 10:00:39 Date Recorded Body height Body mass index (BMI) Body weight Oxygen saturation Oxygen saturation in Arterial blood by Pulse oximetry Heart rate Systolic And Diastolic Provider Name and Address Organization Details Last Updated DateTime 5 165.1 cm 27.8 kg/m2 26357.6 3 g 97 % 97 % 70 /min 120/80 mm[Hg] Rufina Flores MA [facility] 5 11:51:44 Date Recorded Body height Body mass index (BMI) Body weight Oxygen saturation Oxygen saturation in Arterial blood by Pulse oximetry Heart rate Systolic And Diastolic Provider Name and Address Organization Details Last Updated DateTime 4 165.1 cm 29.5 kg/m2 08722.9 g 97 % 97 % 61 /min 120/70 mm[Hg] Rufina Flores MA [facility] 4 10:33:36 Social History Question Answer Notes LastModified by Organizat ion Details LastModified Time Tobacco Smoking Status Former Smoker True Merino MA null, [facility] 04/10/2025 12:43:23 What Is Your Level Of Caffeine Consumption? None [email or web address] Information not available 03/20/2024 What Was The Date Of Your Most Recent Tobacco Screening? 07/18/2025 [email or web address] Information not available 07/18/2025 Has Tobacco Cessation Counseling Been Provided? No [email or web address] Information not available 03/20/2024 Sex: Unknown Functional Status Question Answer Note LastModified by Organizat ion Details LastModified Time Do you use any illicit or recreational drugs? No [email or web address] Information not available 03/20/2024 Do you or have you ever used any other forms of tobacco or nicotine? No [email or web address] Information not available 03/20/2024 What is your level of alcohol consumption? None [email or web address] Information not available 03/20/2024 Mental Status None recorded. Family History Relationship Description Onset Age of this Age Resolved Age Notes LastModified by Organization Details LastModified Time Father Malignant neoplasm of colon [email or web address] Not available 2023 09:59:04 Father Coronary arterioscler osis [email or web address] Not available 2023 09:59:12 Father Hypertensive disorder [email or web address] Not available 2023 09:59:33 Mother Disorder of thyroid gland [email or web address] Not available 2023 09:59:20 Mother Hypertensive disorder [email or web address] Not available 2023 09:59:33 Brother Hypertensive disorder [email or web address] Not available 2023 09:59:33 Sister Hypertensive disorder [email or web address] Not available 2023 09:59:33 Medical History Condition Response Coronary Artery Disease N Other N Atrial Fibrillation N High Blood Pressure Y Depression Y COPD N Blood Clots N Anxiety Disorder Y Muscle, Joint, or Bone Problems N Arthritis N Acid Reflux (GERD) Y Cancer N Stroke N ADHD N High Cholesterol Y Liver Disease N Schizophrenia N Headaches N Thyroid Problems Y Kidney or Bladder Problems N GI Problems Y Eating Disorder N Skin Problems N Anemia N Heart Attack ([place]) N Diabetes N Seizures/Epilepsy N Asthma N Allergies N Substance Abuse N Hepatitis N Heart Failure N Osteoporosis N Gynecological HistoryNo gynecological history recorded. Obstetrics History GPAL:G 0 P 0 0 0 0 Immunizations Vaccine Type Date Status Note Provider Nam e and Address Organization Details Recorded Time Influenza, high-dose, trivalent, PF 5 completed Not Available [facility] 07/18/2025 11:28:18 Pneumococcal conjugate PCV 13 6 completed Not Available [facility] 07/18/2025 11:28:18 Influenza, high-dose, trivalent, PF 7 completed Not Available [facility] 07/18/2025 11:28:18 Influenza, high-dose, trivalent, PF 8 completed Not Available [facility] 07/18/2025 11:28:18 Influenza, adjuvanted, trivalent, PF 9 completed Not Available [facility] 07/18/2025 11:28:18 pneumococcal polysaccharide PPV23 9 completed Not Available [facility] 07/18/2025 11:28:18 Influenza, high-dose, quadrivalent, PF 0 completed Not Available [facility] 07/18/2025 11:28:18 COVID-19, mRNA, LNP-S, PF, 30 mcg/0.3 mL dose 1 completed Not Available [facility] 07/18/2025 11:28:18 COVID-19, mRNA, LNP-S, PF, 30 mcg/0.3 mL dose 1 completed Not Available [facility] 07/18/2025 11:28:18 COVID-19, mRNA, LNP-S, PF, 30 mcg/0.3 mL dose 1 completed Not Available [facility] 07/18/2025 11:28:18 Influenza, adjuvanted, quadrivalent, PF 1 completed Not Available [facility] 07/18/2025 11:28:18 COVID-19, mRNA, LNP-S, PF, 30 mcg/0.3 mL dose, robert-sucrose 2 completed Not Available [facility] 07/18/2025 11:28:18 Influenza, adjuvanted, quadrivalent, PF 2 completed Not Available [facility] 07/18/2025 11:28:18 zoster recombinant 3 completed Not Available [facility] 07/18/2025 11:28:18 Tdap 3 completed Not Available [facility] 07/18/2025 11:28:18 Influenza, adjuvanted, quadrivalent, PF 3 completed Not Available [facility] 07/18/2025 11:28:18 Influenza, adjuvanted, trivalent, PF 4 completed Not Available [facility] [facility] 07/18/2025 11:28:18 Past Encounters Encounter ID Performer Location Encounter Start Date Encounter Closed Date Diagnosis/Indication Diagnosis SNOMED-CT Code Diagnosis ICD10 Code Diagnosis IMO Codes Diagnosis Note [id number] Brock Acosta MD [facility] [address] [address] 03/20/2024 09:52:26 03/21/2024 12:37:52 Benign essential hypertension 5504885 I10 conditon chroinc and at goal refill the clonidine, losartin, metorprolo l my rx Gastroesop hageal reflux disease without esophagitis 953041675 K21.9 conditon chroinc and at goal refill the pepcid. my rx Right trig eminal neuralgia [id number] 3563773 G50.0 conditoin chronic and at goal continue the gabapentin my rx Hypothyroidism 04112272 E03.9 condition chronic and at goal refill the levothyrox ine my rx Hypercholesterolemia 136 35853 E78.00 condition chronic and at goal refill the pravastati n my rx Eczema 90392322 L30.9 condition chroinc and at goal refill the triamcinal one cream my rx. Pain of ri ght elbow joint 0445291045 9957230 M25.521 conditoin chroinc and not at goal order xray right elbow Impacted c erumen of bilateral ears 7749359228 522711 H61.23 conditoin acute clean bilateral ears. the bilateral external auditory canals are irrigated with normal saline and a currette is used to remove the cerumen bolus intact. [id number] Brock Acosta MD [facility] [address] [facility] [address] [place] [address] 04/17/2024 11:53:27 04/18/2024 09:39:48 Overweight 721953555 E66.3 conditon chronic and not at goal continue low fat diet. Fatigue 78205980 R53.83 conditoin chronic and not at goal order am cortisol, tsh, t3, t4, b12, folate, iron panel, cbc, cmp Benign ess ential hypertension 4613632 I10 conditon chroinc and at goal refill the clonidine, losartin, metorprolo l my rx Gastroesop hageal reflux disease without esophagitis 063817860 K21.9 conditon chroinc and at goal refill the pepcid. my rx Eczema 25226767 L30.9 condition chroinc and at goal refill the triamcinal one cream my rx. Hypercholesterolemia 136 60661 E78.00 condition chronic and at goal refill the pravastati n my rx Hypothyroidism 25255710 E03.9 condition chronic and at goal refill the levothyrox ine my rx [id number] Brock Acosta MD [facility] [address] [place] [address] [address] [place] [address] 05/16/2024 09:11:42 05/19/2024 12:59:02 Benign essential hypertension 6353105 I10 conditon chroinc and at goal refill the clonidine, losartin, metorprolo l my rx Eczema 72261546 L30.9 condition chroinc and at goal refill the triamcinal one cream my rx. Gastroesop hageal reflux disease without esophagitis 435433225 K21.9 conditon chroinc and at goal refill the pepcid. my rx Hypercholesterolemia 136 31617 E78.00 condition chronic and at goal refill the pravastati n my rx order lipid panel Hypothyroidism 34590970 E03.9 condition chronic and at goal refill the levothyrox ine my rx Right trig eminal neuralgia 4180173351 2674569 G50.0 conditoin chronic and at goal refill the gabapentin my rx [id number] Brock Acosta MD [facility] [place] [address] [facility] [address] [place] [address] 09/20/2024 10:21:34 09/21/2024 13:45:14 Benign essential hypertension 1283909 I10 conditon chroinc and at goal refill the clonidine, losartin, metorprolo l my rx Gastroesop hageal reflux disease without esophagitis 809429090 K21.9 conditon chroinc and at goal refill the pepcid. my rx Eczema 82524966 L30.9 condition chroinc and at goal refill the triamcinal one cream my rx. Hypercholesterolemia 136 78976 E78.00 condition chronic and at goal refill the pravastati n my rx order lipid panel Hypothyroidism 15424235 E03.9 condition chronic and at goal refill the levothyrox ine my rx Impacted c erumen of bilateral ears 6929987173 992539 H61.23 conditoin acute clean bilateral ears. the bilateral external auditory canals are irrigated with normal saline and a currette is used to remove the cerumen bolus intact. [id number] Brock Acosta MD [facility] [employer] [facility] [place] [address] [facility] [address] [place] [address] 12/22/2024 09:34:10 12/25/2024 13:48:12 Benign essential hypertension 0350863 I10 conditon chroinc and at goal refill the clonidine, losartin, metorprolo l my rx Gastroesop hageal reflux disease without esophagitis 023772119 K21.9 conditon chroinc and at goal refill the pepcid. my rx Hypercholesterolemia 136 37181 E78.00 condition chronic and at goal refill the pravastati n my rx Hypothyroidism 60585503 E03.9 condition chronic and at goal refill the levothyrox ine my rx [id number] Brock Acosta MD [facility] [employer] [facility] [place] [address] [facility] [address] [place] [address] 04/10/2025 10:27:40 04/11/2025 10:52:14 Stool finding 405306270 R19.8 80773536 conditoin acute and getting worse refer to dr mcmahon has abdominal cramping Fatigue 94863032 R53.82 153405 conditoin chronic and not at goal order b12, folate Hypothyroidism 32152408 E03.9 condition chronic and at goal refill the levothyrox ine my rx mildly shaky order tsh, t3, t4 Benign ess ential hypertension 4818502 I10 conditon chroinc and at goal refill the clonidine, losartin, metorprolo l my rx Hypercholesterolemia 136 36701 E78.00 condition chronic and at goal refill the pravastati n my rx Gastroesop hageal reflux disease without esophagitis 801053563 K21.9 conditon chroinc and at goal refill the pepcid. my rx Right trig eminal neuralgia 8226933360 3053537 G50.0 conditoin chronic and at goal refill the gabapentin my rx Impacted c erumen of bilateral ears 3693083837 121910 H61.23 022076 conditoin acute clean bilateral ears. the bilateral external auditory canals are irrigated with normal saline and a currette is used to remove the cerumen bolus intact. [id number] Brock Acosta MD [facility] [employer] [facility] [place] [facility] [place] [address] [facility] [address] [place] [address] 06/21/2025 09:33:20 06/22/2025 13:46:59 Benign essential hypertension 1960816 I10 conditon chroinc and at goal refill the clonidine, losartin, metorprolo l my rx Hypothyroidism 97867233 E03.9 condition chronic and not at goal continue the levothyrox ine with decrease is feeling better. order tsh, t3, t4 Hypercholesterolemia 136 86416 E78.00 condition chronic and at goal refill the pravastati n my rx Right trig eminal neuralgia 8254964149 7796397 G50.0 conditoin chronic and at goal refill the gabapentin for 90 days nad 3 refills. Gastroesop hageal reflux disease without esophagitis 088817705 K21.9 conditon chroinc and at goal refill the pepcid. my rx [id number] Brock Acosta MD [facility] [employer] [facility] [place] [address] [facility] [address] [facility] [place] [address] 07/18/2025 11:27:59 07/19/2025 16:31:04 Generalized osteoarthritis 301110899 M15.9 1453 conditon chronic with exaceberat ion kenalog 80 mg, medrol dose pack Benign ess ential hypertension 6044966 I10 conditon chroinc and at goal refill the clonidine, losartin, metorprolo l my rx order cbc Hypercholesterolemia 136 02569 E78.00 condition chronic and at goal refill the pravastati n my rx order lipid panel, cmp. Hypothyroidism 83519534 E03.9 condition chronic and not at goal continue the levothyrox ine Gastroesop hageal reflux disease without esophagitis 028482977 K21.9 conditon chroinc and at goal refill the pepcid. my rx Eczema 74820619 L30.9 condition chroinc and at goal refill the triamcinal one cream my rx. Screening mammography 24 486107 Z12.31 68957720 order mammo o[facility] Health Concerns Section Related Observation LastModified by Organization Detai ls LastModified Time None Recorded Concern Status LastModified by Organization Details LastModified Time None Recorded Advance Directives Directive None Recorded Payers Insurance Date Sequence Insurance Name Policy Number Policy Rush Covered Member ID Rush Member ID Guarantor Name 07/18/2025 1 [employer] - PRIME (MEDICARE REPLACEMENT/ ADVANTAGE - HMO) [id number] Mahsa Cannon [id number] Mahsa Cannon Notes Date Note Type Note Provider Name and Address Organization Details Recorded Time 09/20/2024 text/html states that she is doin ggood and hte htn is under contorl the gerd is unde rcontorl the chol and hte thyroid is under control taking his meds as directed. Brock Acosta MD Attn: [address] [place], [address], [facility] 09/20/2024 18:33:07 12/22/2024 text/html states that she is doing good hte htn and the gerd is under control the thyroid is under control and the chol is stable Brock Acosta MD Attn: [address] [place], [address], [facility] 12/22/2024 15:30:20 04/10/2025 text/html states that she has not had a normal bm in the past month states that she has some mild sob and has faitgue. the htn and the chol is under contorl hte gerd is under control has abdominal cramping and mildly shakey Brock Acosta MD Attn: [address] [place], [address], [facility] 04/10/2025 13:49:19 06/21/2025 text/html states that the gabapentin in helping and wants a 90 day supply the htn is under control the thyroid is under contrl the gerd is under control mammo is scheduled. colo is utd. Brock Acosta MD Attn: Accounting,[address] [place], [address], [facility] 06/21/2025 13:38:41 07/18/2025 text/html states that she has multiple joint pain with the weather and hurts all over. no muscle pain is noted and she is getting over a chest cold. the htn is udner control hte thryoid is under control filipe gerd is under control Brock Acosta MD Attn: Accounting,[address] [facility], [place], [address], [facility] 07/18/2025 13:19:14 OBGyn Episode No OBEpisode recorded.
--- OUTSIDE RECORDS SUMMARY | 2025-08-25 19:04 | XMS_ITS | Clinical Summary ---
Author Organization [facility] [address] [facility] Address [address] [place] [address] Care Team Providers Care Plant Physiologist Name Role Phone Ramez Balderrama MD Unavailable [phone] Mandeep Bravo MD Unavailable [phone] Brock Acosta MD Primary Care Provider [phone] Allergies Active Allergy Reactions Criticality Noted Date [...] Type Department Care Team Description 08/02/2025 Telephone [facility] Accountable Care Organization [address] [place] [id number] Elizabeth Tyson MA Successful Phone Call (MED ADHERENCE) 06/11/2025 8:14 AM CDT - 06/11/2025 11:59 PM CDT Hospital Encounter [facility] [address] [place] [id number] Procedure and treatment not carried out [...] than three times a week 09/06/2019 Attends Scientologist Services More than 4 times per year [...] staff should administer the PHQ-9) 0 08/04/2023 [facility] - Occupational Stress Questionnaire Answer Date Recorded Feeling of Stress Not at all 09/06/2019 Exercise Vital Sign Answer Date Recorde d Days of Exercise per Week 3 days 2018 Minutes of Exercise per Session 50 min 09/06/2019 Comments Unknown Sex and Gender Information Value Date Recorded Sex Assigned at Not on file 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 COMPARISON: None FINDINGS: DIRECTOR ELECTRONICS KUB: Normal abdominal film with adequate bowel [...] Robert Espino M.D. JA: RIP Report ID: [id number] Reading Location: [id number] Procedure Note Robert Espino MD - 06/11/2025 EXAM DESCRIPTION: FL BARIUM ENEMA W AIR CONTRAST REASON FOR STUDY: Failed colonscopy RADIATION DOSE: Dose: 3546 uGym2 Dose Area Product (DAP) TECHNIQUE: Following retrograde filling of the colon with barium and air, fluoroscopic spot and overhead imaging of the colon was obtained and savedto PACS. COMPARISON: None FINDINGS: DIRECTOR ELECTRONICS KUB: Normal abdominal film with adequate bowel [...] Robert Espino M.D. JA: RIP Report ID: [id number] Reading Location: [place] [address] Ramez Balderrama MD IMG FLUOROSCOPY PROCEDURES Susie l Result * Dexa Axial Skeleton Bone Density 1 or 2 Site (02/12/2020) Anatomical Region Laterality Modality Body N/A Radiographic Viktoriya ging Historical Provider IMG DXA PROCEDURES Final Result * COLONOSCOPY (08/15/2016) Colonoscopy Unknown Historical Provider HEALTH MAINTENANCE Final Result from Last 3 Months or Most Recently Relevant to Health Maintenance Insurance TNA MEDICARE GOLD AETNA [facility] REF TNA MEDICARE GOLD Care Teams Plant Physiologist Relationship Specialty Start Date End Date Brock Acosta MD [address] [address] PCP - General Family Medicine 06/11/25 Ramez Balderrama MD [address] [place] [address] Referring Physician Gastroenterology 09/06/19 Mandeep Bravo MD [address] [place] [address] Referring Physician Ophthalmology 09/06/19
--- OUTSIDE RECORDS SUMMARY | 2025-08-25 19:04 | XMS_ITS | Encounter Summary ---
Author Organization [employer] Address 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 Gender Identity Not on file Sexual Orientation Not on file documented as of this encounter Plan of Treatment Not on file documented as of this encounter Procedures Procedure Name Priority Date/Time Associated Diagnosis Comments HIGH SENSITIVITY CRP Routine 02/16/2005 4:26 PM CDT CBC WITH DIFFERENTIAL Routine 02/12/2005 9:30 AM FINE ARTIST CBC WITH DIFFERENTIAL Routine 02/12/2005 9:30 AM FINE ARTIST URINALYSIS W/REFLEX MICROSCOPIC Routine 02/12/2005 9:30 AM FINE ARTIST C-REACTIVE PROTEIN Routine 02/12/2005 9: 30 AM FINE ARTIST TSH Routine 02/12/2005 9:30 AM FINE ARTIST LIPID PANEL Routine 02/12/2005 9:30 AM FINE ARTIST COMPREHENSIVE METABOLIC PANEL Routine 02/12/2005 9:30 AM FINE ARTIST documented in this encounter Results * HIGH [...] ORDERABLES Final Re sult Performing Organization Address [facility] Co de Phone Number INTERFACE SYSTEM Refer to clinic/hospital department * (ABNORMAL) URINALYSIS (02/12/2005 9:30 AM FINE ARTIST) COLOR UA Yellow INTERFACE SYSTEM CLARITY UA [...] Many /HPF INTERFACE SYSTEM 02/12/2005 9:30 AM FINE ARTIST Gómez Smyth MD URINE ORDERABLES Final Result Performing Organization Address [facility] Co de Phone Number INTERFACE SYSTEM Refer to clinic/hospital department * C-REACTIVE PROTEIN (02/12/2005 9:30 AM FINE ARTIST) CRP <0.5 0.0 - 0.8 mg/dL INTERFACE SYSTEM 02/12/2005 9:30 AM FINE ARTIST Gómez Symth MD CHEMISTRY ORDERABLES Final Re sult Performing Organization Address City/[facility]/ZIP Co de Phone Number INTERFACE SYSTEM Refer to clinic/hospital department * (ABNORMAL) LIPID PANEL (02/12/2005 9:30 AM FINE ARTIST) LIPID PANEL COMMENT See below INTERFACE SYSTEM [...] section for risk classifications. 02/12/2005 9:30 AM FINE ARTIST Gómez Smyth MD CHEMISTRY ORDERABLES Final Re sult Performing Organization Address City/[facility] Co de Phone Number INTERFACE SYSTEM Refer to clinic/hospital department * (ABNORMAL) COMPREHENSIVE METABOLIC PANEL (02/12/2005 9:30 AM FINE ARTIST) SODIUM 141 135 - 145 mmol/L INTERFACE [...] 30 mmol/L INTERFACE SYSTEM 02/12/2005 9:30 AM FINE ARTIST Gómez Smyth MD CHEMISTRY ORDERABLES Final Re sult Performing Organization Address [facility] de Phone Number INTERFACE SYSTEM Refer to clinic/hospital department * (ABNORMAL) CBC WITH DIFFERENTIAL (02/12/2005 9:30 AM FINE ARTIST) Pathologist [facility] NEUTROPHILS 48 45 - 70 % INTERFAC [...] 0.20 K/uL INTERFACE SYSTEM 02/12/2005 9:30 AM FINE ARTIST Gómez Smyth MD HEMATOLOGY ORDERABLES Final R esult Performing Organization Address [facility]/ZIP Co de Phone Number INTERFACE SYSTEM Refer to clinic/hospital department * CBC WITH DIFFERENTIAL (02/12/2005 9:30 AM FINE ARTIST) WBC 5.5 4.0 - 9.8 K/uL INTERFACE [...] 12.4 fL INTERFACE SYSTEM 02/12/2005 9:30 AM FINE ARTIST us Gómez Smyth MD HEMATOLOGY ORDERABLES Final R esult Performing Organization Address [facility] Phone Number INTERFACE SYSTEM Refer to clinic/hospital department * (ABNORMAL) TSH (02/12/2005 9:30 AM FINE ARTIST) TSH 0.03(L) 0.27 - 4.20 uU/mL INTERFACE SYSTEM 02/12/2005 9:30 AM FINE ARTIST Gómez Smyth MD CHEMISTRY ORDERABLES Final Re sult Performing Organization Address [facility] Phone Number INTERFACE SYSTEM Refer to clinic/hospital department documented in this encounter Visit Diagnoses Not on filedocumented in this encounter Care Teams Advanced Manufacturing Consultant Relationship Specialty Start Date End Date Brock Acosta MD PCP - General 11/05/15 documented as of this encounter
--- OUTSIDE RECORDS SUMMARY | 2025-08-25 19:04 | XMS_ITS | Encounter Summary ---
Author Organization [facility] Address [address] 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
--- OUTSIDE RECORDS SUMMARY | 2025-08-25 19:04 | XMS_ITS | Encounter Summary ---
Author Organization [email or web address] Address 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
[2025-08-25 19:36] VITALS: BP 154/84; PULSE 74; RESP 18; O2SAT 99
== END 2025-08-25 19:38 | disposition home or self-care (01) ==
LOC: ANHED 19:01
PROVIDERS: Emergency Provider Emergency Medicine; PCP Family Medicine
DX: M26.622 Arthralgia of left temporomandibular joint (principal); I10 Essential (primary) hypertension; E07.9 Disorder of thyroid, unspecified; K21.9 Gastro-esophageal reflux disease without esophagitis; Z87.442 Personal history of urinary calculi; Z90.49 Acquired absence of other specified parts of digestive tract
CPT/HCPCS: 93005; 99283